=== PATIENT | female | born 1935 | race Caucasian/White ===

== ENCOUNTER → 2017-03-09 10:02 | Outpatient (CLI) | payer MEDICARE, OTHER, SELFPAY ==
[2017-03-09 13:16] LABS: Absolute Neutrophil Count 4.3 X10^3/uL (2.0-7.7); Basophil# 0.05 X10^3/uL; Basophil% 0.8 % (0-1); Eosinophil# 0.22 X10^3/uL; Eosinophils% 3.6 % (0-5); Hematocrit 38.9 % (37-47); Hemoglobin 13.1 g/dl (12.0-15.0); Lymphocyte % 13.2 % (19-41); Mean Corp Hgb Conc 33.7 g/gl (32-36); Mean Corpuscular Hgb 31.1 pg (27.0-32.0); Mean Corpuscular Volume 92.4 fL (81-99); Mean Platelet Vol. 10.8 fl (6.2-12.0); Monocyte# 0.75 X10^3/uL; Monocyte% 12.3 % (0-10); Neutrophil # 4.25 X10^3/uL (2.7-7.7); Neutrophil % 69.9 % (47-70); Platelet Count 246 K/mm3 (150-450); RBC Distribution Width CV 12.9 % (11.6-14.6); RBC Distribution Width SD 42.4 fl (35.1-43.9); Red Blood Count 4.21 M/mm3 (4.2-5.4); White Blood Count 6.1 K/mm3 (4.4-11.0)
[2017-03-09 13:17] LABS: POSITIVE COUNT NO; POSITIVE DIFFERENTIAL NO; POSITIVE MORPHOLOGY NO
[2017-03-09 13:44] LABS: AST(SGOT) 17 U/L (15-37); Alanine Aminotransfer ALT/SGPT 25 U/L (12-78); Albumin, Serum 3.7 g/dL (3.4-5.0); Alkaline Phosphatase 104 U/L (45-117); Anion Gap 8 (5-15); BUN 17 mg/dL (7-18); BUN/Creat Ratio 20.1 RATIO (10-20); Calcium,Total 9.1 mg/dL (8.5-10.1); Chloride 99 mmol/L (98-107); Creatinine, Serum 0.85 mg/dL (0.55-1.02); EST Glomerular Filtration Rate 68 mL/min (>60); Est Glom Filt Rate - Afr Amer 83 mL/min (>60); Globulin 3.7 g/dL (2.2-4.2); Glucose 88 mg/dL (70-110); Potassium 4.6 mmol/L (3.5-5.1); Protein, Total 7.4 g/dL (6.4-8.2); Sodium Level 136 mmol/L (136-145)
[2017-03-10 08:46] LABS: Vitamin D,25 Hydroxy 12.1 ng/mL
== END ==
PROVIDERS: Family Provider Family Medicine Geriatric Medicine; PCP Family Medicine Geriatric Medicine; Visit Provider Family Medicine Geriatric Medicine
DX: I10 Essential (primary) hypertension (principal); E55.9 Vitamin D deficiency, unspecified
CPT/HCPCS: 36415; 80053; 82306; 84443; 85025

== ENCOUNTER 2017-04-10 13:58 | Outpatient (RCR) | payer MEDICARE, OTHER, SELFPAY ==
[2017-03-16 12:47] LABS: International Normalized Ratio 2.7; Prothrombin Time (Protime)PT. 27.3 SECONDS (11.7-14.9)
[2017-04-10 15:12] LABS: International Normalized Ratio 2.6; Prothrombin Time (Protime)PT. 27.2 SECONDS (11.7-14.9)
== END 2017-04-10 14:00 | disposition home or self-care (01) ==
LOC: LAB 13:58
PROVIDERS: Family Provider Family Medicine Geriatric Medicine; PCP Family Medicine Geriatric Medicine; Visit Provider Internal Medicine Cardiovascular Disease
DX: I48.0 Paroxysmal 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 (principal)
CPT/HCPCS: 36415; 85610

== ENCOUNTER 2017-05-12 13:20 | Outpatient (RCR) | payer MEDICARE, OTHER, SELFPAY ==
[2017-05-12 15:02] LABS: International Normalized Ratio 2.3; Prothrombin Time (Protime)PT. 25.5 SECONDS (11.7-14.9)
== END 2017-05-12 14:00 | disposition home or self-care (01) ==
LOC: LAB 13:20
PROVIDERS: Family Provider Family Medicine Geriatric Medicine; PCP Family Medicine Geriatric Medicine; Visit Provider Internal Medicine Cardiovascular Disease
DX: I48.1 Persistent 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 (principal)
CPT/HCPCS: 36415; 85610

== ENCOUNTER 2017-06-12 12:14 | Outpatient (RCR) | payer MEDICARE, OTHER, SELFPAY ==
[2017-06-12 13:42] LABS: International Normalized Ratio 2.8; Prothrombin Time (Protime)PT. 29.3 SECONDS (11.7-14.9)
== END 2017-06-12 13:00 | disposition home or self-care (01) ==
LOC: LAB 12:14
PROVIDERS: Family Provider Family Medicine Geriatric Medicine; PCP Family Medicine Geriatric Medicine; Visit Provider Internal Medicine Cardiovascular Disease
DX: I48.1 Persistent 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 (principal)
CPT/HCPCS: 36415; 85610

== ENCOUNTER 2017-07-12 12:29 | Outpatient (RCR) | payer MEDICARE, OTHER, SELFPAY ==
[2017-07-12 13:13] LABS: International Normalized Ratio 2.7; Prothrombin Time (Protime)PT. 28.4 SECONDS (11.7-14.9)
== END 2017-07-12 13:00 | disposition home or self-care (01) ==
LOC: LAB 12:29
PROVIDERS: Family Provider Family Medicine Geriatric Medicine; PCP Family Medicine Geriatric Medicine; Visit Provider Internal Medicine Cardiovascular Disease
DX: I48.1 Persistent 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 (principal)
CPT/HCPCS: 36415; 85610

== ENCOUNTER → 2017-07-27 09:54 | Outpatient (CLI) | payer MEDICARE, OTHER, SELFPAY ==
--- NOTE | 2017-07-27 09:55 | ECHOD_ITS ---
Reason For Study: AFIB/FLUTTER Procedure This was a 2D Doppler, Color Flow transthoracic echocardiogram. The study was technically difficult. Due to body habitus. Exam performed in department. Left Ventricle Normal size and thickness. The estimated ejection fraction is 65 %. No regional wall motion abnormalities noted. Right Ventricle Normal size and thickness. Normal systolic function. Atria The left atrium is severely enlarged. Normal right atrium. Normal atrial septum. Mitral Valve The mitral valve is structurally normal. No prolapse or stenosis seen. Mild-Moderate (1-2+) mitral valve insufficiency. Tricuspid Valve Normal tricuspid valve. Mild (1+) tricuspid valve insufficiency. Right ventricular systolic pressure estimated to be 44 mmHg. Mild pulmonary hypertension. Aortic Valve Trisinus/trileaflet aortic valve. Pulmonic Valve Normal pulmonic valve. Trivial pulmonic valve insufficiency. Great Vessels Normal aortic root. Normal arch. The inferior vena cava is dilated. No collapse of the inferior vena cava. Pericardium/Pleural No pericardial effusion. MMode/2D Measurements & Calculations LVIDd: 4.6 cm IVSd: 1.1 cm Ao root diam: 3.4 cm LVIDs: 3.0 cm LVPWd: 1.1 cm LA dimension: 4.1 cm RVDd: 2.8 cm FS: 33.9 % LAV(MOD-bp): 95.3 ml LA A4 area: 29.5 cm2 RA A4 area: 20.0 cm2 LAV(MOD-bp) Indexed: 54.1 ml/m2 LAV(MOD-sp2): 74.1 ml LAV(MOD-sp4): 105.4 ml Doppler Measurements & Calculations MV E max tico: 132.3 cm/sec Lat Peak E' Tico: 9.3 cm/sec Med Peak E' Tico: 9.8 cm/sec MV A max tico: 32.4 cm/sec E/E' lat: 14.2 E/E' med: 13.5 MV E/A: 4.1 Ao V2 max: 142.5 cm/sec LV V1 max: 84.8 cm/sec MR max tico: 439.5 cm/sec Ao max P.1 mmHg LV V1 max P.9 mmHg MR max P.3 mmHg PA V2 max: 82.1 cm/sec PI dec slope: 132.4 cm/sec2 TR max tico: 245.5 cm/sec TR max P.4 mmHg Interpretation Summary The estimated ejection fraction is 65 %. The left atrium is severely enlarged. Mild-Moderate (1-2+) mitral valve insufficiency. Mild (1+) tricuspid valve insufficiency. Right ventricular systolic pressure estimated to be 44 mmHg. Mild pulmonary hypertension. Pt appears to be in 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. Compared to echo report dated 07/13/2015, no appreciable changes noted. Ordering Physician: Nadeem Sheriff Referring Physician: Deon Hamm Chi Performed By: Lorteo Walker RDCS, RVT
== END ==
PROVIDERS: Family Provider Family Medicine Geriatric Medicine; PCP Family Medicine Geriatric Medicine; Visit Provider Internal Medicine Cardiovascular Disease
DX: I51.7 Cardiomegaly (principal)
CPT/HCPCS: 93306

== ENCOUNTER 2017-08-08 10:58 | Outpatient (RCR) | payer MEDICARE, OTHER, SELFPAY ==
[2017-08-08 12:23] LABS: International Normalized Ratio 2.9; Prothrombin Time (Protime)PT. 30.6 SECONDS (11.7-14.9)
== END 2017-08-08 12:00 | disposition home or self-care (01) ==
LOC: LAB 10:58
PROVIDERS: Family Provider Family Medicine Geriatric Medicine; PCP Family Medicine Geriatric Medicine; Visit Provider Internal Medicine Cardiovascular Disease
DX: I48.1 Persistent 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 (principal)
CPT/HCPCS: 36415; 85610

== ENCOUNTER 2017-09-08 12:46 | Outpatient (RCR) | payer MEDICARE, OTHER, SELFPAY ==
[2017-09-08 14:00] LABS: International Normalized Ratio 2.4; Prothrombin Time (Protime)PT. 26.5 SECONDS (11.7-14.9)
== END 2017-09-08 14:00 | disposition home or self-care (01) ==
LOC: LAB 12:46
PROVIDERS: Family Provider Family Medicine Geriatric Medicine; PCP Family Medicine Geriatric Medicine; Visit Provider Internal Medicine Cardiovascular Disease
DX: I48.1 Persistent 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 (principal)
CPT/HCPCS: 36415; 85610

== ENCOUNTER → 2017-09-21 14:48 | Outpatient (CLI) | payer MEDICARE, OTHER, SELFPAY ==
[2017-09-21 17:42] LABS: Absolute Lymphocyte Count 0.82 X10^3/ul (0.83-4.51); Absolute Neutrophil Count 4.5 X10^3/uL (2.0-7.7); Basophil# 0.03 X10^3/uL; Basophil% 0.5 % (0-1); Eosinophil# 0.29 X10^3/uL; Eosinophils% 4.6 % (0-5); Hematocrit 36.8 % (37-47); Hemoglobin 12.1 g/dl (12.0-15.0); Lymphocyte # 0.82 X10^3/ul (4.0); Lymphocyte % 13.1 % (19-41); Mean Corp Hgb Conc 32.9 g/gl (32-36); Mean Corpuscular Volume 91.3 fL (81-99); Mean Platelet Vol. 10.8 fl (6.2-12.0); Monocyte# 0.59 X10^3/uL; Monocyte% 9.4 % (0-10); Neutrophil # 4.51 X10^3/uL (2.7-7.7); Neutrophil % 72.2 % (47-70); Platelet Count 251 K/mm3 (150-450); RBC Distribution Width CV 13.2 % (11.6-14.6); Red Blood Count 4.03 M/mm3 (4.2-5.4); White Blood Count 6.3 K/mm3 (4.4-11.0)
[2017-09-21 18:00] LABS: POSITIVE COUNT NO; POSITIVE DIFFERENTIAL NO; POSITIVE MORPHOLOGY NO
[2017-09-21 18:17] LABS: ALB/GLOB Ratio 1.1 RATIO (0.9-2.4); AST(SGOT) 22 U/L (15-37); Alanine Aminotransfer ALT/SGPT 27 U/L (13-56); Alkaline Phosphatase 82 U/L (45-117); Anion Gap 12 (5-15); BUN 17 mg/dL (7-18); BUN/Creat Ratio 18.8 RATIO (10-20); Calcium,Total 9.1 mg/dL (8.5-10.1); Chloride 99 mmol/L (98-107); EST Glomerular Filtration Rate 63 mL/min (>60); Est Glom Filt Rate - Afr Amer 77 mL/min (>60); Globulin 3.6 g/dL (2.2-4.2); Glucose 98 mg/dL (74-106); Potassium 4.4 mmol/L (3.5-5.1); Protein, Total 7.6 g/dL (6.4-8.2); Sodium Level 136 mmol/L (136-145); Thyroid Stim Hormone (TSH) 2.11 uIU/mL (0.358-3.74)
== END ==
PROVIDERS: Family Provider Family Medicine Geriatric Medicine; PCP Family Medicine Geriatric Medicine; Visit Provider Family Medicine Geriatric Medicine
DX: I10 Essential (primary) hypertension (principal); E55.9 Vitamin D deficiency, unspecified
CPT/HCPCS: 36415; 80053; 82306; 84443; 85025

== ENCOUNTER 2017-10-12 12:41 | Outpatient (RCR) | payer MEDICARE, OTHER, SELFPAY ==
[2017-10-12 13:52] LABS: International Normalized Ratio 2.5
== END 2017-10-12 14:00 | disposition home or self-care (01) ==
LOC: LAB 12:41
PROVIDERS: Family Provider Family Medicine Geriatric Medicine; PCP Family Medicine Geriatric Medicine; Visit Provider Internal Medicine Cardiovascular Disease
DX: I48.1 Persistent 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 (principal); Z79.01 Long term (current) use of anticoagulants; I36.1 Nonrheumatic tricuspid (valve) insufficiency; I27.21 Secondary pulmonary arterial hypertension; I25.2 Old myocardial infarction; I51.7 Cardiomegaly
CPT/HCPCS: 36415; 85610

== ENCOUNTER 2017-11-10 12:16 | Outpatient (RCR) | payer MEDICARE, OTHER, SELFPAY ==
[2017-11-10 12:56] LABS: International Normalized Ratio 2.5; Prothrombin Time (Protime)PT. 27.1 SECONDS (11.7-14.9)
== END 2017-11-10 13:00 | disposition home or self-care (01) ==
LOC: LAB 12:16
PROVIDERS: Nurse Practitioner Family; Family Provider Family Medicine Geriatric Medicine; PCP Family Medicine Geriatric Medicine; Visit Provider Internal Medicine Cardiovascular Disease
DX: I51.7 Cardiomegaly (principal); I48.0 Paroxysmal 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; Z79.01 Long term (current) use of anticoagulants; I36.1 Nonrheumatic tricuspid (valve) insufficiency; I27.21 Secondary pulmonary arterial hypertension; I25.2 Old myocardial infarction
CPT/HCPCS: 36415; 85610

== ENCOUNTER 2017-12-08 11:49 | Outpatient (RCR) | payer MEDICARE, OTHER, SELFPAY ==
[2017-12-08 12:37] LABS: International Normalized Ratio 3.3; Prothrombin Time (Protime)PT. 33.8 SECONDS (11.7-14.9)
== END 2017-12-08 13:00 | disposition home or self-care (01) ==
LOC: LAB 11:49
PROVIDERS: Family Provider Family Medicine Geriatric Medicine; PCP Family Medicine Geriatric Medicine; Referring Provider Internal Medicine Cardiovascular Disease; Visit Provider Internal Medicine Cardiovascular Disease
DX: I48.0 Paroxysmal 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 (principal); I51.7 Cardiomegaly; I36.1 Nonrheumatic tricuspid (valve) insufficiency; I27.21 Secondary pulmonary arterial hypertension; Z86.73 Personal history of transient ischemic attack (TIA), and cerebral infarction without residual deficits; Z79.01 Long term (current) use of anticoagulants
CPT/HCPCS: 36415; 85610

== ENCOUNTER 2018-01-01 12:28 | Outpatient (RCR) | payer MEDICARE, OTHER, SELFPAY ==
[2017-12-22 13:45] LABS: International Normalized Ratio 3.7; Prothrombin Time (Protime)PT. 36.7 SECONDS (11.7-14.9)
[2018-01-01 14:14] LABS: International Normalized Ratio 2.3
== END 2018-01-12 09:38 | disposition home or self-care (01) ==
LOC: LAB 12:28
PROVIDERS: Family Provider Family Medicine Geriatric Medicine; PCP Family Medicine Geriatric Medicine; Referring Provider Internal Medicine Cardiovascular Disease; Visit Provider Internal Medicine Cardiovascular Disease
DX: I51.7 Cardiomegaly (principal); I48.0 Paroxysmal 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; I36.1 Nonrheumatic tricuspid (valve) insufficiency; I27.21 Secondary pulmonary arterial hypertension; Z86.73 Personal history of transient ischemic attack (TIA), and cerebral infarction without residual deficits; Z79.01 Long term (current) use of anticoagulants
CPT/HCPCS: 36415; 85610

== ENCOUNTER 2018-02-02 12:22 | Outpatient (RCR) | payer MEDICARE, OTHER, SELFPAY ==
[2018-01-15 13:32] LABS: International Normalized Ratio 2.4; Prothrombin Time (Protime)PT. 26.2 SECONDS (11.7-14.9)
[2018-02-02 13:24] LABS: Prothrombin Time (Protime)PT. 37.6 SECONDS (11.7-14.9)
[2018-02-02 13:29] LABS: International Normalized Ratio 3.8
[2018-02-08 13:44] LABS: International Normalized Ratio 2.6; Prothrombin Time (Protime)PT. 27.9 SECONDS (11.7-14.9)
--- OUTSIDE RECORDS SUMMARY | 2018-03-10 19:11 | XMS RPT_ITS ---
:1935 Author Organization OHIP Support Name Relationship Address Phone MARCO A, DENISE Unavailable [address] + [place] [address] R Unavailable Unavailable Unavailable RIP STRICKLANDARD Unavailable [address] + [place] [address] R Unavailable Unavailable Unavailable MARCO A DENISE Unavailable [address] + [place] [address] R Unavailable Unavailable Unavailable MARCO A DENISE Unavailable [address] + [place] [address] R Unavailable Unavailable Unavailable MARCO A DENISE Unavailable [address] + [place] [address] R Unavailable Unavailable Unavailable MARCO A DENISE Unavailable [address] + [place] [address] R Unavailable Unavailable Unavailable MARCO A DENISE Unavailable [address] + [place] [address] R Unavailable Unavailable Unavailable MARCO A DENISE Unavailable [address] + [place] [address] R Unavailable Unavailable Unavailable MARCO A DENISE Unavailable [address] + [place] [address] R Unavailable Unavailable Unavailable MARCO A DENISE Unavailable [address] + [place] [address] R Unavailable Unavailable Unavailable MARCO A DENISE Unavailable [address] + [place] [address] R Unavailable Unavailable Unavailable MARCO A DENISE Unavailable [address] + [place] [address] R Unavailable Unavailable Unavailable MARCO A DENISE Unavailable [address] + [place] [address] R Unavailable Unavailable Unavailable MARCO A, DENISE Unavailable [address] + [place] [address] R Unavailable Unavailable Unavailable MARCO A, DENISE Unavailable [address] + [place] [address] MARCO A FRANCISCO Unavailable [address] + [place] [address] R Unavailable Unavailable Unavailable MARCO A DENISE Unavailable [address] + [place] [address] R Unavailable Unavailable Unavailable R Unavailable Unavailable Unavailable MARCO A, DENISE Unavailable [address] + [place] [address] MARCO A FRANCISCO Unavailable [address] + [place] [address] R Unavailable Unavailable Unavailable MARCO A, DENISE Unavailable [address] + [place] [address] FRANCISCO STRICKLAND Unavailable [address] + [place] [address] R Unavailable Unavailable Unavailable MARCO A DENISE Unavailable [address] + [place] [address] FRANCISCO STRICKLAND Unavailable [address] + [place] [address] R Unavailable Unavailable Unavailable Care Team Providers Name Role Phone Nadeem Arriaga Attending Unavailable Hansel, Deon Chi Primary Care Unavailable Nadeem Arriaga Attending Unavailable Hansel, Deon Chi Primary Care Unavailable WILLARD ARRIAGA Referring Unavailable Hansel, Deon Chi Attending Unavailable Hansel, Deon Chi Primary Care Unavailable Naheed Victor Attending Unavailable Nadeem Arriaga Attending Unavailable Hansel, Deon Chi Referring Unavailable Hansel, Deon Chi Primary Care Unavailable Nadeem Arriaga Attending Unavailable Nadeem Arriaga Referring Unavailable Hansel, Deon Chi Primary Care Unavailable Nadeem Arriaga Attending Unavailable WILLARD ARRIAGA Referring Unavailable Hansel, Deon Chi Primary Care Unavailable Nadeem Arriaga Attending Unavailable Hansel, Deon Chi Primary Care Unavailable Nadeem Arriaga Referring Unavailable Nadeem Arriaga Attending Unavailable Nadeem Arriaga Referring Unavailable Hansel, Deon Chi Primary Care Unavailable Nadeem Arriaga Attending Unavailable Hansel, Deon Chi Primary Care Unavailable Angella Stoner Attending Unavailable Hansel, Deon Chi Referring Unavailable Hansel, Deon Chi Primary Care Unavailable Nadeem Arriaga Attending Unavailable Arriaga, Nadeem Referring Unavailable Hansel, Deon Chi Primary Care Unavailable Nadeem Arriaga Attending Unavailable Arriaga, Nadeem Referring Unavailable ArriagaNadeem Attending Unavailable Arriaga, Nadeem Referring Unavailable Hansel, Deon Chi Primary Care Unavailable Hansel, Deon Chi Attending Unavailable Hansel, Deon Chi Primary Care Unavailable Nadeem Arriaga Attending Unavailable Arriaga, Nadeem Referring Unavailable Hansel, Deon Chi Primary Care Unavailable Nadeem Arriaga Attending Unavailable Arriaga, Nadeem Referring Unavailable Hansel, Deon Chi Primary Care Unavailable Arriaga, Nadeem Attending Unavailable Arriaga, Nadeem Referring Unavailable Hansel, Deon Chi Primary Care Unavailable Nadeem Arriaga Attending Unavailable Arriaga, Nadeem Referring Unavailable Hansel, Deon Chi Primary Care Unavailable PROBLEMS PROBLEMS DATE TYPE CONDITION / CODE ATTENDING STATUS SOURCE 01/15/2018 Unknown I51.7 - Cardiomegaly Nadeem Arriaga Active [facility] / I51.7(ICD-10) [facility] Hospital Repository 12/14/2017 Unknown I48.0 - Paroxysmal Steve Arriagael Active [place] 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 Community / I48.0(ICD-10) Hospital Repository 11/15/2017 Unknown I27.21 - Secondary Jaziel Nadeem Active [place] pulmonary arterial [facility] hypertension / Hospital I27.21(ICD-10) Repository 11/15/2017 Unknown I36.1 - Nonrheumatic Nadeem Arriaga Active [place] tricuspid (valve) [facility] insufficiency / Hospital I36.1(ICD-10) Repository 11/15/2017 Unknown I63.9 - Cerebral Jaziel Nadeem Active [place] infarction, [facility] unspecified / Hospital I63.9(ICD-10) Repository 11/15/2017 Unknown Z79.01 - nursing home Nadeem Arriaga Active [facility] (current) use of [facility] anticoagulants / Hospital Z79.01(ICD-10) Repository 10/17/2017 Unknown I48.1 - Persistent Arriaga Nadeem Active [facility] 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 Community / I48.1(ICD-10) Hospital Repository 07/13/2017 Unknown I48.91 - Unspecified Nadeem Arriaga Active [facility] 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 Community / I48.91(ICD-10) Hospital Repository 03/09/2017 Unknown I10 - Essential Hansel, Deon Chi Active [place] (primary) Community hypertension / Hospital I10(ICD-10) Repository PROCEDURES PROCEDURES No Procedure Records FoundRESULTS RESULTS PROTHROMBIN TIME W/INR Collected: 01/15/2018 Status: F Source: [place] 12:47 PM [facility] REPOSITORY TYPE CODE TESTS RESULT OUT OF RANGE REFERENCE UNITS LAB L300.4150 11.7-14.9 SECONDS High PROTIME 26.2 LAB L300.4200 Normal INR 2.4 Performed By: #### L300.3900 #### [facility] [address] [place], [address] PROTHROMBIN TIME W/INR Collected: 01/01/2018 Status: F Source: [place] 12:32 PM [facility] REPOSITORY TYPE CODE TESTS RESULT OUT OF RANGE REFERENCE UNITS LAB L300.4150 11.7-14.9 SECONDS High PROTIME 25.0 LAB L300.4200 Normal INR 2.3 Performed By: #### L300.3900 #### [facility] [address] [place], [address] PROTHROMBIN TIME W/INR Collected: 12/22/2017 Status: F Source: [place] 12:39 PM [facility] REPOSITORY Order Comment: CRITICAL VALUE VERIFIED. CALLED TO daisy cox 12/22/17 Angelica Harris. RESULTS READ BACK BY same . TYPE CODE TESTS RESULT OUT OF REFERENCE UNITS RANGE LAB L300.4150 11.7-14.9 SECONDS High PROTIME 36.7 LAB L300.4200 High alert INR 3.7 Performed By: #### L300.3900 #### [facility] [address] [place], [address] PROTHROMBIN TIME W/INR Collected: 12/08/2017 Status: F Source: [place] 11:53 AM [facility] REPOSITORY TYPE CODE TESTS RESULT OUT OF RANGE REFERENCE UNITS LAB L300.4150 11.7-14.9 SECONDS High PROTIME 33.8 LAB L300.4200 Normal INR 3.3 Performed By: #### L300.3900 #### [facility] [address] [place], [address] PROTHROMBIN TIME W/INR Collected: 11/10/2017 Status: F Source: [place] 12:18 PM [facility] REPOSITORY Order Comment: Comments: STANDING ORDER Comments: STANDING ORDER TYPE CODE TESTS RESULT OUT OF RANGE REFERENCE UNITS LAB L300.4150 11.7-14.9 SECONDS High PROTIME 27.1 LAB L300.4200 Normal INR 2.5 Performed By: #### L300.3900 #### [facility] [address] [place], [place], [address] PROTHROMBIN TIME W/INR Collected: 10/12/2017 Status: F Source: [place] 12:54 PM [facility] REPOSITORY TYPE CODE TESTS RESULT OUT OF RANGE REFERENCE UNITS LAB L300.4150 11.7-14.9 SECONDS High PROTIME 27.0 LAB L300.4200 Normal INR 2.5 Performed By: #### L300.3900 #### [facility] [address] [place], [address] CBC W/DIFF, AUTOMATED Collected: 09/21/2017 Status: F Source: [place] 2:49 PM [facility] REPOSITORY TYPE CODE TESTS RESULT OUT OF RANGE REFERENCE UNITS LAB L100.1000 4.4-11.0 K/mm3 Normal WBC 6.3 LAB L100.1200 4.2-5.4 M/mm3 Low RBC 4.03 LAB L100.1300 12.0-15.0 g/dl Normal HGB 12.1 LAB L100.1400 37-47 % Low HCT 36.8 LAB L100.1500 81-99 fL Normal MCV 91.3 LAB L100.1600 27.0-32.0 pg Normal MCH 30.0 LAB L100.1700 32-36 g/gl Normal MCHC 32.9 LAB L100.1810 11.6-14.6 % Normal RDW CV 13.2 LAB L100.1820 35.1-43.9 fl High RDW SD 44.0 LAB L100.1900 150-450 K/mm3 Normal PLT 251 LAB L100.2000 6.2-12.0 fl Normal MPV 10.8 LAB L100.2100 47-70 % High NEUT% 72.2 LAB L100.2200 19-41 % Low LY% 13.1 LAB L100.2300 0-10 % Normal MONO% 9.4 LAB L100.2400 0-5 % Normal EO% 4.6 LAB L100.2500 0-1 % Normal BASO% 0.5 LAB L100.2550 0.0-0.9 % Normal IM GRAN % 0.200 Result Comment: IG% - Immature Granulocytes (promyelocytes, myelocytes and metamyelocytes) > 1% indicates that a LEFT SHIFT is Present. LAB L100.2620 2.0-7.7 X10 3/uL Normal Absolute Neut 4.5 LAB L100.2720 0.83-4.51 X10 3/ul Low Absolute Lymph 0.82 Performed By: #### L100.0100 #### [facility] [address] [place], [place], [address] COMPREHENSIVE METABOLIC Collected: 09/21/2017 Status: F Source: [facility] 2:49 PM [facility] REPOSITORY TYPE CODE TESTS RESULT OUT OF RANGE REFERENCE UNITS LAB L501.0100 74-106 mg/dL Normal GLU 98 Result Comment: Please note revised GLUCOSE reference range effective 2017. LAB L501.1000 7-18 mg/dL Normal BUN 17 LAB L501.1100 0.55-1.02 mg/dL Normal CREAT,SERUM 0.90 Result Comment: The validity of the calculated GFR AND GFRAA in patients over 70 years has not been determined. Clinical correlation is essential. LAB L501.1110 >60 mL/min Normal EST GFR 63 Result Comment: Non- GFR Calc LAB L501.1115 >60 mL/min Normal EST GFR - AA 77 Result Comment: GFR Calc LAB L501.1300 10-20 RATIO Normal BUN/CRE 18.8 LAB L501.1500 6.4-8.2 g/dL T Normal PROT 7.6 LAB L501.1800 3.2-5.0 g/dL Normal ALB 4.0 LAB L501.1950 2.2-4.2 g/dL Normal GLOB 3.6 LAB L501.2000 0.9-2.4 RATIO Normal A/G 1.1 LAB L501.2200 8.5-10.1 mg/dL CA Normal 9.1 LAB L501.4100 15-37 U/L Normal AST 22 LAB L501.4305 45-117 U/L Normal ALK P 82 LAB L501.4405 13-56 U/L Normal ALT 27 LAB L501.4600 0.20-1.00 mg/dL T Normal BILI 0.70 LAB L501.5300 136-145 mmol/L NA Normal 136 LAB L501.5600 3.5-5.1 mmol/L K Normal 4.4 LAB L501.5900 98-107 mmol/L CL Normal 99 LAB L501.6100 21.0-32.0 mmol/L Normal CO2 25.0 LAB L501.6200 5-15 Normal GAP 12 Performed By: #### L500.4050, L501.9520 #### [facility] [address] [place], [address] THYROID STIM HORMONE Collected: 09/21/2017 Status: F Source: [place] ([facility]SH) 2:49 PM [facility] REPOSITORY TYPE CODE TESTS RESULT OUT OF RANGE REFERENCE UNITS LAB L501.9520 0.358-3.74 uIU/mL Normal TSH 2.11 Performed By: #### L500.4050, L501.9520 #### [facility] [address] [place], [address] VITAMIN D,25 HYDROXY Collected: 09/21/2017 Status: F Source: [place] 2:49 PM [facility] REPOSITORY TYPE CODE TESTS RESULT OUT OF RANGE REFERENCE UNITS LAB L506.1000 29.95-100.01 ng/mL Normal Vitamin D 33.0 25-OH Result Comment: Vitamin D 25(OH) Status Range Deficiency <20 ng/mL (50nmol/L) Insuffciency 20 - 30 ng/mL (50 - 75 nmol/L) Sufficiency 30 - 100 ng/mL (75 - 250 nmol/L) Toxicity >100 ng/mL (>250 nmol/L) Performed By: #### L506.1000 #### [facility] [address] [place], [place], [address] PROTHROMBIN TIME W/INR Collected: 09/08/2017 Status: F Source: [place] 12:53 PM [facility] REPOSITORY TYPE CODE TESTS RESULT OUT OF RANGE REFERENCE UNITS LAB L300.4150 11.7-14.9 SECONDS High PROTIME 26.5 LAB L300.4200 Normal INR 2.4 Performed By: #### L300.3900 #### [facility] [address] [place], [address] CARDIOLOGY VISIT Observed: 08/08/2017 Status: F Source: [place] REPORT 1:17 PM [facility] REPOSITORY [facility] [address] [place] [address] OFFICE VISIT Date of Service: 08/08/17 MR#: [id number] Acct: [id number] Name: CRISTOBAL STRICKLAND Rep #: [id number] : 1935 Provider: Angella Stoner Age/Sex: 82/F Location: [facility] Status: Signed HPI HPI Details: CRISTOBAL STRICKLAND, is a 82 F who presents to the office today for a cardiovascular follow-up. She has a history of paroxysmal 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, hypertension, pulmonary hypertension, hyperlipidemia and small acute cerebral infarcts. From a cardiac standpoint, patient is doing well. She does not have any chest discomfort/heaviness/tightness. She does not have any worsening symptoms of shortness of breath. She does not have any orthopnea. She denies PND. She does not have any symptoms of congestive heart failure. She does not have any palpitations that she is aware of. She does not have any lightheadedness or dizziness. She does not have any near-syncope or syncope. She does have lower extremity edema, she does use compression stockings. She does not have any symptoms of claudication. Intake Vital Signs08/08/17 Height 5 ft 2 in 08/08/17 Weight: 173 lb 08/08/17 Body Mass Index (BMI) 31.6 08/08/17 Blood Pressure 122/60 08/08/17 Blood Pressure Location Lt brachial Intake Visit Reasons: 4 M FU [employer]s Rece[employer] Processor Required: No Is patient in pain?: No Allergies No Known Allergies Allergy (Verified 08/08/17 10:24) Medications Simvastatin 20 mg PO QHS 03/15/13 [History Confirmed 08/08/17] Aspirin [Aspirin, Baby] 81 mg PO DAILY@0800 #30 tab.chew 07/13/15 [Rx Confirmed 08/08/17] Hydrochlorothiazide [Hctz] 12.5 mg PO DAILY #30 tab 07/13/15 [Rx Confirmed 08/08/17] Lisinopril [Zestril] 40 mg PO DAILY #30 tab 07/13/15 [Rx Confirmed 08/08/17] Multivitamins,Therapeutic [Multivitamin] 1 tab PO DAILY 09/16/15 [History Confirmed 08/08/17] magnesium oxide 400 mg capsule 400 mg PO QDAY cap 04/08/17 [History Confirmed 08/08/17] metoprolol tartrate 50 mg tablet 75 mg PO BID tab 04/08/17 [History Confirmed 08/08/17] warfarin 5 mg tablet 5 mg PO QDAY 04/08/17 [History Confirmed 08/08/17] isosorbide mononitrate ER 30 mg tablet,extended release 24 hr 30 mg PO DAILY #90 tab 04/10/17 [Rx Confirmed 08/08/17] melatonin 3 mg disintegrating tablet 6 mg PO HS PRN tab 04/10/17 [History Confirmed 08/08/17] warfarin 2 mg tablet 2 mg PO .COMPLEX #120 tab 07/12/17 [Rx Confirmed 08/08/17] amlodipine 2.5 mg tablet 2.5 mg PO BID #180 tab 08/08/17 [Rx Confirmed 08/08/17] Ejection fraction %: 65 to 70 PFSH Medical History Atrial enlargement, bilateral (Chronic) Non-rheumatic tricuspid valve insufficiency (Chronic) Secondary pulmonary arterial hypertension (Chronic) CVA (cerebral vascular accident) (Chronic 07/12/15) Hypertension (Chronic) Paroxysmal 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 (Chronic) nursing home current use of anticoagulant (Chronic) Hyponatremia (Chronic) Surgical History History of bilateral hip replacements (Chronic) History of cardioversion (Chronic 09/17/15) History of tonsillectomy (Chronic) Family History Brother CAD (coronary artery disease) CABG in his 60's Social History Smoking Status: Never smoker alcohol intake: never caffeine: Yes Type: coffee Number of servings: 2 ROS Const Const: Negative for fatigue, weakness, difficulty sleeping, frequent falls, headache(s) or excessive sweating Eyes Eyes: Negative for loss of peripheral vision, transient loss of vision, blurry vision or double vision ENT ENT: Negative for headache(s) or balance problems Cardio Chest Pain: No Edema: None, Bilateral (BLE ankle edema right > left) Muscle aches with walking: None Resp Respiratory: Negative for SOB with activity, SOB at rest, SOB orthopnea\SOB lying down or paroxysmal nocturnal dyspnea GI GI: Negative nausea or heartburn : Negative for hematuria Musc Musc: Negative for muscle aches/ myalgia, muscle weakness, joint pain or balance problems Skin Skin: Negative non-healing lesions, unusual bruising or rash Neuro Neuro: Negative for weakness, frequent falls, headache(s), blurry vision or double vision B[place]on Hematologic/Lymphatic: Negative for easy bruising Endo Endo: Negative for fatigue or excessive sweating Psych Psych: Negative for anxiety or depression Allergy Allergy/Immunology: Negative for rash Cardiology Exam Const Appearance: cooperative, healthy appearing and no acute distress Nutritional Appearance: well nourished Orientation: alert, oriented x3 and oriented to person Head Head: normal to inspection, atraumatic and normocephalic Nose: external nose normal Face and Sinus: face symmetric Mouth: oral mucosae normal Eyes General: appearance normal, both eyes and all related structures Eyelids: eyelids normal Conjunctivae: conjunctivae normal Pupils: PERRL and normal by confrontation EOM: EOM intact bilaterally Neck Neck: normal visual inspection and full ROM Carotids: normal carotid upstroke Chest Chest inspection: normal inspection of the chest Auscultation: Bilateral: Clear to Auscultation Cardio Palpation: normal PMI Rate: regular rate Rhythm: regular rhythm Heart sounds: S1 normal and S2 normal GI GI: normal to inspection, no hepatosplenomegaly and bowel sounds present Neuro General: alert, oriented x3, awake, CN's II-XI intact bilaterally and moves all extremities Skin Skin: no rashes or lesions noted Extremities Pulses: Normal: Right Femoral Pulse, Left Femoral Pulse, Right Dorsalis Pedis Pulse, Left Dorsalis Pedis Pulse, Right Posterior Tibial Pulse, Left Posterior Tibial Pulse, Right Radial Pulse, Left Radial Pulse Lower Extremity Edema: None: Bilateral Psych Psychological: normal affect Supplemental Info Echocardiogram in 2018 demonstrates an ejection fraction of 65%. Left atrium is severely enlarged. Mild to moderate mitral insufficiency. Mild tricuspid insufficiency. RVSP 44 mmHg. Mild pulmonary hypertension. Assessment AND Plan 1. Paroxysmal 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 I48.0 Plan Patient is in 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 today. Suspect that this may be now more persistent. She is not symptomatic. Her rate is controlled. She is anticoagulated with a therapeutic INR goal of 2-3. 2. Essential hypertension I10 Plan Adequately controlled on current medications. Will not make any adjustments. 3. Secondary pulmonary arterial hypertension I27.21 Plan We will continue to monitor through periodic echocardiograms. Plan Detail Other Medications Refilled: Follow Up 6 Months (DJN) Coding Level of Care Code Off vis,est,level 3 Diagnoses Paroxysmal 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 I48.0 Essential hypertension I10 Hypertension type: essential hypertension Secondary pulmonary arterial hypertension I27.21 Coding Level of Care Code Off vis,est,level 3 Diagnoses Paroxysmal 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 I48.0 Essential hypertension I10 Hypertension type: essential hypertension Secondary pulmonary arterial hypertension I27.21 08/08/17 1317 <Electronically signed by Angella FRIED> Date Angella FRIED Cosigner Signature: Date (if applicable) CC: Deon Hamm MD PROTHROMBIN TIME W/INR Collected: 08/08/2017 Status: F Source: [place] 11:14 AM [facility] REPOSITORY TYPE CODE TESTS RESULT OUT OF RANGE REFERENCE UNITS LAB L300.4150 11.7-14.9 SECONDS High PROTIME 30.6 LAB L300.4200 Normal INR 2.9 Performed By: #### L300.3900 #### [facility] [address] [place], [address] ECHOCARDIOGRAM COMPLETE Observed: 07/31/2017 Status: F Source: [place] 3:32 PM [facility] REPOSITORY [facility] Cardiovascular Services [address] [place] [address] Echo Complete 07/27/17 0956 MR#: [id number] Acct: [id number] Name: CRISTOBAL STRICKLAND Rep #: [id number] : 1935 82 From: Nadeem [place]riaga MD Attending Dr: Nadeem Arriaga MD Status: REG CLI Ordering Dr: Nadeem Arriaga MD Date: 07/27/17 Location: [facility] Sex: F C Admitted: Reason For Study: AFIB/FLUTTER Procedure This was a 2D Doppler, Color Flow transthoracic echocardiogram. The study was technically difficult. Due to body habitus. Exam performed in department. Left Ventricle Normal size and thickness. The estimated ejection fraction is 65 %. No regional wall motion abnormalities noted. Right Ventricle Normal size and thickness. Normal systolic function. Atria The left atrium is severely enlarged. Normal right atrium. Normal atrial septum. Mitral Valve The mitral valve is structurally normal. No prolapse or stenosis seen. Mild-Moderate (1-2+) mitral valve insufficiency. Tricuspid Valve Normal tricuspid valve. Mild (1+) tricuspid valve insufficiency. Right ventricular systolic pressure estimated to be 44 mmHg. Mild pulmonary hypertension. Aortic Valve Trisinus/trileaflet aortic valve. Pulmonic Valve Normal pulmonic valve. Trivial pulmonic valve insufficiency. Great Vessels Normal aortic root. Normal arch. The inferior vena cava is dilated. No collapse of the inferior vena cava. Pericardium/Pleural No pericardial effusion. MMode/2D Measurements AND Calculations LVIDd: 4.6 cm IVSd: 1.1 cm Ao root diam: 3.4 cm LVIDs: 3.0 cm LVPWd: 1.1 cm LA dimension: 4.1 cm RVDd: 2.8 cm FS: 33.9 % LAV(MOD-bp): 95.3 ml LA A4 area: 29.5 cm2 RA A4 area: 20.0 cm2 LAV(MOD-bp) Indexed: 54.1 ml/m2 LAV(MOD-sp2): 74.1 ml LAV(MOD-sp4): 105.4 ml Doppler Measurements AND Calculations MV E max tico: 132.3 cm/sec Lat Peak E' Tico: 9.3 cm/sec Med Peak E' Tico: 9.8 cm/sec MV A max tico: 32.4 cm/sec E/E' lat: 14.2 E/E' med: 13.5 MV E/A: 4.1 Ao V2 max: 142.5 cm/sec LV V1 max: 84.8 cm/sec MR max tico: 439.5 cm/sec Ao max P.1 mmHg LV V1 max P.9 mmHg MR max P.3 mmHg PA V2 max: 82.1 cm/sec PI dec slope: 132.4 cm/sec2 TR max tico: 245.5 cm/sec TR max P.4 mmHg Interpretation Summary The estimated ejection fraction is 65 %. The left atrium is severely enlarged. Mild-Moderate (1-2+) mitral valve insufficiency. Mild (1+) tricuspid valve insufficiency. Right ventricular systolic pressure estimated to be 44 mmHg. Mild pulmonary hypertension. Pt appears to be in 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. Compared to echo report dated 07/13/2015, no appreciable changes noted. Ordering Physician: Nadeem Arriaga Referring Physician: Deon Hamm Chi Performed By: Loreot Walker, LIBIA, RVT 07/31/17918 Date Nadeem Arriaga MD CC: Nadeem Arriaga MD; Deon Hamm MD Date Dictated: 07/27/17955 Date Transcribed: 07/31/17918 Salary Manager: Signed PROTHROMBIN TIME W/INR Collected: 07/12/2017 Status: F Source: [place] 12:37 PM [facility] REPOSITORY TYPE CODE TESTS RESULT OUT OF RANGE REFERENCE UNITS LAB L300.4150 11.7-14.9 SECONDS High PROTIME 28.4 LAB L300.4200 Normal INR 2.7 Performed By: #### L300.3900 #### [facility] [address] [place], [place], [address] PROTHROMBIN TIME W/INR Collected: 06/12/2017 Status: F Source: [place] 12:25 PM [facility] REPOSITORY TYPE CODE TESTS RESULT OUT OF RANGE REFERENCE UNITS LAB L300.4150 11.7-14.9 SECONDS High PROTIME 29.3 LAB L300.4200 Normal INR 2.8 Performed By: #### L300.3900 #### [facility] [address] [place], [place], [address] PROTHROMBIN TIME W/INR Collected: 05/12/2017 Status: F Source: [place] 1:30 PM [facility] REPOSITORY TYPE CODE TESTS RESULT OUT OF RANGE REFERENCE UNITS LAB L300.4150 11.7-14.9 SECONDS High PROTIME 25.5 LAB L300.4200 Normal INR 2.3 Performed By: #### L300.3900 #### [facility] [address] [place], [place], [address] PROTHROMBIN TIME W/INR Collected: 04/10/2017 Status: F Source: [place] 2:05 PM [facility] REPOSITORY TYPE CODE TESTS RESULT OUT OF RANGE REFERENCE UNITS LAB L300.4150 11.7-14.9 SECONDS High PROTIME 27.2 LAB L300.4200 Normal INR 2.6 Performed By: #### L300.3900 #### [facility] [address] [place], [address] CARDIOLOGY VISIT Observed: 04/10/2017 Status: F Source: JAMIES[facility] REPORT 1:44 PM [facility] REPOSITORY [facility] [address] [place] [address] OFFICE VISIT Date of Service: 04/10/17 MR#: [id number] Acct: [id number] Name: CRISTOBAL STRICKLAND Rep #: [id number] : 1935 Provider: Nadeem Arriaga MD Age/Sex: 81/F Location: [facility] Status: Signed HPI HPI Chief Complaint: routine f/u Details: Referring physician: Dr. Mcgregor Mrs. Morel is a very pleasant 81-year-old nondiabetic nonsmoking female with a history of hypertension,no previous cardiac history, who presented to [facility] on 07/11/15. At that time she developed lightheadedness and dizziness as well as numbness of her left arm. She was found to be in new onset 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 and severe hypertension. Initial CT of her head was negative for acute stroke. It was felt that her symptoms were due to severe hypertension. She underwent an MRI which showed small acute infarcts in the basal ganglia. She did not receive TPA. She underwent a 2-D echo with Doppler which demonstrated severe left atrial enlargement, negative bubble study, EF of 65%, RVSP of 40 mmHg. She was treated with Coumadin, beta guerrero, lisinopril and HCTZ for hypertension. From a cardiac standpoint she cannot detect when she in 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 and denies any chest pain, angina, shortness of breath or dyspnea on exertion. she underwent successful DC cardioversion on 09/17/15 and is remained in sinus rhythm ever since. She does walk with a cane over long distances but is had no presyncope or syncopal episodes. She has been compliant with her medications. Her last known EKG documenting normal sinus rhythm was 03/08/15 at which time she had normal sinus rhythm, normal axis,first-degree AV block, no evidence of previous microinfarction or acute changes. Patient now returns for follow-up of her 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 and hypertension. She underwent a 2-D echo with Doppler and 07/13/15 which demonstrated an EF of 65%, as well as a stress test which was negative for inducible ischemia. The patient states that she's been exercising well as best she can, and has no symptoms of lightheadedness or dizziness. She denies any palpitations. Blood pressure is well controlled at home, and she can detect when she goes in and out of 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. She has had no 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 events according to as best she can tell. In our office today her blood pressure is140/60, and pulse is 66 and regular. Her physical exam is as below. Her cardiac exam is regular rate and rhythm, normal S1/S2, no murmurs are detected. She has no edema. Her lipids as of 07/12/15 showed HDL of 64 and an LDL of 51. Repeat lipids pending. EKG today demonstrates normal sinus rhythm with first-degree AV block, QT corrected of 402 ms. No previous myocardial infarction noted. Intake Vital Signs04/10/17 Height 5 ft 2 in Intake Visit Reasons: 6 M FU Allergies No Known Allergies Allergy (Verified 04/10/17 13:15) Medications Simvastatin 20 mg PO QHS 03/15/13 [History Confirmed 04/08/17] Aspirin [Aspirin, Baby] 81 mg PO DAILY@0800 #30 tab.chew 07/13/15 [Rx Confirmed 04/08/17] Hydrochlorothiazide [Hctz] 12.5 mg PO DAILY #30 tab 07/13/15 [Rx Confirmed 04/08/17] Lisinopril [Zestril] 40 mg PO DAILY #30 tab 07/13/15 [Rx Confirmed 04/08/17] Multivitamins,Therapeutic [Multivitamin] 1 tab PO DAILY 09/16/15 [History Confirmed 04/08/17] warfarin 2 mg tablet 2 mg PO .COMPLEX #30 tab 03/16/17 [Rx Confirmed 04/08/17] magnesium oxide 400 mg capsule 400 mg PO QDAY cap 04/08/17 [History Confirmed 04/08/17] metoprolol tartrate 50 mg tablet 75 mg PO BID tab 04/08/17 [History Confirmed 04/08/17] warfarin 5 mg tablet 5 mg PO QDAY 04/08/17 [History Confirmed 04/08/17] amlodipine 2.5 mg tablet 2.5 mg PO BID #180 tab 04/10/17 [Rx Confirmed 04/10/17] isosorbide mononitrate ER 30 mg tablet,extended release 24 hr 30 mg PO DAILY #90 tab 04/10/17 [Rx Confirmed 04/10/17] melatonin 3 mg disintegrating tablet 6 mg PO HS PRN tab 04/10/17 [History Confirmed 04/10/17] PFSH Medical History Atrial enlargement, bilateral (Chronic) Non-rheumatic tricuspid valve insufficiency (Chronic) Secondary pulmonary arterial hypertension (Chronic) CVA (cerebral vascular accident) (Chronic 07/12/15) Hypertension (Chronic) Paroxysmal 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 (Chronic) 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) Hyponatremia (Chronic) Surgical History History of bilateral hip replacements (Chronic) History of cardioversion (Chronic 09/17/15) History of tonsillectomy (Chronic) Family History Brother CAD (coronary artery disease) CABG in his 60's Social History Smoking Status: Never smoker ROS Const Const: Negative for fatigue, weakness, difficulty sleeping, frequent falls, headache(s) or excessive sweating Eyes Eyes: Negative for loss of peripheral vision, transient loss of vision, blurry vision or double vision ENT ENT: Negative for headache(s), dizziness, Nosebleed/epistaxis or balance problems Cardio Chest Pain: No Edema: None, Bilateral (BLE ankle edema right > left) Muscle aches with walking: None Resp Respiratory: Negative for SOB with activity, SOB at rest, SOB orthopnea\SOB lying down or paroxysmal nocturnal dyspnea GI GI: Negative nausea or heartburn : Negative for hematuria Musc Musc: Negative for muscle aches/ myalgia, muscle weakness, joint pain or balance problems Skin Skin: Negative non-healing lesions, unusual bruising or rash Neuro Neuro: Negative for weakness, frequent falls, blurry vision, headache(s), dizziness, lightheadedness, orthostatic symptoms or double vision Brendon Hematologic/Lymphatic: Negative for easy bruising Endo Endo: Negative for fatigue, excessive sweating or increased thirst/drinking Psych Psych: Negative for anxiety or depression Allergy Allergy/Immunology: Negative for hives, Negative for rash Cardiology Exam Const Appearance: cooperative, healthy appearing and no acute distress Nutritional Appearance: well nourished Orientation: alert, oriented x3 and oriented to person Head Head: normal to inspection, atraumatic and normocephalic Nose: external nose normal Face and Sinus: face symmetric Mouth: oral mucosae normal Eyes General: appearance normal, both eyes and all related structures Eyelids: eyelids normal Conjunctivae: conjunctivae normal Pupils: PERRL and normal by confrontation EOM: EOM intact bilaterally Neck Neck: normal visual inspection and full ROM Carotids: normal carotid upstroke Chest Chest inspection: normal inspection of the chest Auscultation: Bilateral: Clear to Auscultation Cardio Palpation: normal PMI Rate: regular rate Rhythm: regular rhythm Heart sounds: S1 normal and S2 normal GI GI: normal to inspection, no hepatosplenomegaly and bowel sounds present Neuro General: alert, oriented x3, awake, CN's II-XI intact bilaterally and moves all extremities Skin Skin: no rashes or lesions noted Extremities Pulses: Normal: Right Femoral Pulse, Left Femoral Pulse, Right Dorsalis Pedis Pulse, Left Dorsalis Pedis Pulse, Right Posterior Tibial Pulse, Left Posterior Tibial Pulse, Right Radial Pulse, Left Radial Pulse Lower Extremity Edema: None: Bilateral Psych Psychological: normal affect Assessment AND Plan 1. Paroxysmal 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 I48.0 Plan 1. Atrial fibrillation: Patient has had no further 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 as best she can tell, and is tolerating her antihypertensive medicines well. Recommend that she continue her Imdur, amlodipine, lisinopril and warfarin. She has had no falls or accidents that would prohibit her from continuing Coumadin. 2. Secondary pulmonary arterial hypertension I27.21 Plan 2. Pulmonary hypertension: Recommend the patient undergo repeat echocardiogram in July 2017 do so every 2 years for LV function and pulmonary pressure maintenance. 3. Hyperlipidemia: Her LDL and HDL cholesterol are fairly well-controlled. Continue Zocor. 3. Return office in 4 months. This note was generated using a voice recognition system and there may be incorrect words, spelling or punctuation that were not noted when reviewing the office note prior to saving. Plan Detail Other Orders Orders: Other Medications New: Follow Up 4 Months (Jaziel) Coding Level of Care Code Off vis,est,level 3 Diagnoses Paroxysmal 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 I48.0 Secondary pulmonary arterial hypertension I27.21 Coding Level of Care Code Off vis,est,level 3 Diagnoses Paroxysmal 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 I48.0 Secondary pulmonary arterial hypertension I27.21 04/10/17 1344 <Electronically signed by Nadeem Arriaga MD> Date Nadeem Arriaga MD Cosigner Signature: Date (if applicable) CC: PROTHROMBIN TIME W/INR Collected: 03/16/2017 Status: F Source: [facility] 11:59 AM [facility] REPOSITORY TYPE CODE TESTS RESULT OUT OF RANGE REFERENCE UNITS LAB L300.4150 11.7-14.9 SECONDS High PROTIME 27.3 LAB L300.4200 Normal INR 2.7 Performed By: #### L300.3900 #### [facility] [address] [place], [address] CBC W/DIFF, AUTOMATED Collected: 03/09/2017 Status: F Source: J[place] 10:07 AM [facility] REPOSITORY TYPE CODE TESTS RESULT OUT OF RANGE REFERENCE UNITS LAB L100.1000 4.4-11.0 K/mm3 Normal WBC 6.1 LAB L100.1200 4.2-5.4 M/mm3 Normal RBC 4.21 LAB L100.1300 12.0-15.0 g/dl Normal HGB 13.1 LAB L100.1400 37-47 % Normal HCT 38.9 LAB L100.1500 81-99 fL Normal MCV 92.4 LAB L100.1600 27.0-32.0 pg Normal MCH 31.1 LAB L100.1700 32-36 g/gl Normal MCHC 33.7 LAB L100.1810 11.6-14.6 % Normal RDW CV 12.9 LAB L100.1820 35.1-43.9 fl Normal RDW SD 42.4 LAB L100.1900 150-450 K/mm3 Normal PLT 246 LAB L100.2000 6.2-12.0 fl Normal MPV 10.8 LAB L100.2100 47-70 % Normal NEUT% 69.9 LAB L100.2200 19-41 % Low LY% 13.2 LAB L100.2300 0-10 % High MONO% 12.3 LAB L100.2400 0-5 % Normal EO% 3.6 LAB L100.2500 0-1 % Normal BASO% 0.8 LAB L100.2550 0.0-0.9 % Normal IM GRAN % 0.200 Result Comment: IG% - Immature Granulocytes (promyelocytes, myelocytes and metamyelocytes) > 1% indicates that a LEFT SHIFT is Present. LAB L100.2620 2.0-7.7 X10 3/uL Normal Absolute Neut 4.3 LAB L100.2720 0.83-4.51 X10 3/ul Low Absolute Lymph 0.80 Performed By: #### L100.0100 #### [facility] [address] [place], [address] COMPREHENSIVE METABOLIC Collected: 03/09/2017 Status: F Source: [facility] 10:07 AM [facility] REPOSIT[facility] TYPE CODE TESTS RESULT OUT OF RANGE REFERENCE UNITS LAB L501.0100 70-110 mg/dL Normal GLU 88 LAB L501.1000 7-18 mg/dL Normal BUN 17 LAB L501.1100 0.55-1.02 mg/dL Normal 0.85 CREAT,SERUM Result Comment: The validity of the calculated GFR AND GFRAA in patients over 70 years has not been determined. Clinical correlation is essential. LAB L501.1110 >60 mL/min Normal EST GFR 68 Result Comment: Non- GFR Calc LAB L501.1115 >60 mL/min Normal EST GFR - AA 83 Result Comment: GFR Calc LAB L501.1300 10-20 RATIO High BUN/CRE 20.1 LAB L501.1500 6.4-8.2 g/dL T Normal PROT 7.4 LAB L501.1800 3.4-5.0 g/dL Normal ALB 3.7 Result Comment: Please note revised Albumin AND Globulin reference range effective 2016. LAB L501.1950 2.2-4.2 g/dL Normal GLOB 3.7 LAB L501.2000 0.9-2.4 RATIO Normal A/G 1.0 LAB L501.2200 8.5-10.1 mg/dL Normal CA 9.1 LAB L501.4100 15-37 U/L Normal AST 17 LAB L501.4305 45-117 U/L Normal ALK P 104 LAB L501.4405 12-78 U/L Normal ALT 25 LAB L501.4600 0.20-1.00 mg/dL Normal T BILI 0.60 LAB L501.5300 136-145 mmol/L Normal NA 136 LAB L501.5600 3.5-5.1 mmol/L Normal K 4.6 LAB L501.5900 98-107 mmol/L Normal CL 99 LAB L501.6100 21.0-32.0 mmol/L Normal CO2 29.0 LAB L501.6200 5-15 Normal GAP 8 Performed By: #### L500.4050, L501.9520 #### [facility] [address] [facility]. [place], [place], [address] THYROID STIM HORMONE Collected: 03/09/2017 Status: F Source: H[facility]RI (TSH) 10:07 AM [facility] REPOSITORY TYPE CODE TESTS RESULT OUT OF RANGE REFERENCE UNITS LAB L501.9520 0.358-3.74 uIU/mL Normal TSH 2.70 Performed By: #### L500.4050, L501.9520 #### [facility] [address] [place], [address] VITAMIN D,25 HYDROXY Collected: 03/09/2017 Status: F Source: [facility] 10:07 AM [facility] REPOSITORY TYPE CODE TESTS RESULT OUT OF RANGE REFERENCE UNITS LAB L506.1000 ng/mL Normal Vitamin D 12.1 25-OH Result Comment: Vitamin D 25(OH) Status Range Deficiency <20 ng/mL (50nmol/L) Insuffciency 20 - 30 ng/mL (50 - 75 nmol/L) Sufficiency 30 - 100 ng/mL (75 - 250 nmol/L) Toxicity >100 ng/mL (>250 nmol/L) Performed By: #### L506.1000 #### [facility] [address] [facility] [place], [address] PROTHROMBIN TIME W/INR Collected: 02/09/2017 Status: F Source: HENRI 12:48 PM [facility] REPOSITORY TYPE CODE TESTS RESULT OUT OF RANGE REFERENCE UNITS LAB L300.4150 11.7-14.9 SECONDS High PROTIME 26.4 LAB L300.4200 Normal INR 2.5 Performed By: #### L300.3900 #### [facility] [address], [address] ALLERGIES ALLERGIES DATE TYPE / CODE NAME / CODE REACTION SEVERITY SOURCE 08/08/2017 Drug No Known Unknown [facility] Allergy/4160 Allergies/F00 Hospital 03002(SNOMED 9046844(RXNOR Repository CT) M) ENCOUNTERS ENCOUNTERS ADMIT/DISCHARGE ACCOUNT ADMITTING ENCOUNTER LOCATION SOURCE NUMBER CLASS 01/15/2018 [id number] Ambulatory [place] 4 [facility] ing:LAB Repository 01/01/2018/ [id number] Ambulatory [place] 8 6 [facility] ing:LAB Repository 12/08/2017/ [id number] Ambulatory [place] 8 3 [facility] ing:LAB Repository 11/10/2017/ [id number] Ambulatory [place] 8 8 [facility] ing:LAB Repository 10/12/2017/ [id number] Ambulatory [place] 8 6 [facility] ing:LAB Repository 09/21/2017 [id number] Ambulatory [place] 1 [facility] ing:POLAB3 Repository 09/08/2017/ [id number] Ambulatory [place] 8 1 [facility] ing:LAB Repository 08/08/2017/ [id number] Ambulatory [place] 8 1 [facility] ing:LAB Repository 08/08/2017/ [id number] Ambulatory [facility]:B [place] 8 8 [place] Repository 07/27/2017 [id number] Ambulatory [place] 7 [facility] ing:[facility] Repository 07/27/2017 [id number] Ambulatory BMSBuilding:W [place] 8 [facility] Repository 07/12/2017/ [id number] Ambulatory [place] 8 6 [facility] ing:LAB Repository 06/12/2017/ [id number] Ambulatory [place] 8 5 [facility] ing:LAB Repository 05/12/2017/ [id number] Ambulatory [place] 8 0 [facility] ing:LAB Repository 04/10/2017/ [id number] Ambulatory [place] 8 1 [facility] ing:LAB Repository 04/10/2017/ [id number] Ambulatory BMSBuilding:B [place] 8 9 [facility] Repository 04/08/2017 [id number] Ambulatory BMSBuilding:B [place] 4 [facility] Repository 03/09/2017 [id number] Ambulatory [place] 9 [facility] ing:POLAB3 Repository 02/09/2017/ [id number] Ambulatory [place] 7 0 [facility] ing:LAB Repository PAYERS PAYERS ENCOUNTER GUARANTOR PAYER SUBSCRIBER SOURCE 01/15/2018 DENISE Garcia Primary CRISTOBAL J [place] [id number] [facility] PART A [facility] [id number] Number: Repository [id number]: (188) [id number] [phone] () Date:1999-07-15 01/15/2018 Secondary CRISTOBAL J [place] Insurance:[facility]: [facility] INSURANCE [facility] [id number] Hospital Number: Repository [id number] Date:1999-07-[address] [place] [address]JB: 01/15/2018 Tertiary NOT ARELIUNK [place] Insurance:SELF PAY [facility] Number: Effective Repository Date:2018-01-15 01/01/2018 DENISE Garcia Primary CRISTOBAL J [place] [id number] Insurance:[facility]ARE [facility]: [facility] PART A [facility] [id number] Number: Repository [address]Ksm: 330 [id number] [phone] (HP) Date:1999-07-15 01/01/2018 Secondary CRISTOBAL Álvarez Insurance:[facility]: Community INSURANCE COPolicy [id number] Hospital Number: Repository [id number] Date:1999-07-15P [address] [place] [address]GQ: 01/01/2018 Tertiary NOT GIVENUNK [place] Insurance:SELF PAY [facility] Number: Effective Repository Date:2017-12-14 12/08/2017 DENISE Garcia Primary CRISTOBAL Álvarez [id number] Insurance:[facility]ICARE [facility] [place]AB[facility] PART A [facility] [id number] Number: Repository [address]Ntn: 330 [id number] [phone] (HP) Date:1999-07-15 12/08/2017 Secondary CRISTOBAL Álvarez Insurance:[facility]: Community INSURANCE COP[employer]icy [id number] Hospital Number: Repository [id number] Date:1999-07-15 [address], [place] [address]SF: 12/08/2017 Tertiary NOT GIVENUNK [place] Insurance:SELF PAY [facility] Number: Effective Repository Date:2017-11-15 11/10/2017 DENISE Garcia Primary CRISTOBAL Álvarez [id number] Insurance[facility] FABIAN PART A [facility] [id number] Number: Repository [address]Qyx: 330 [id number] [phone] (HP) Date:1999-07-15 11/10/2017 Secondary CRISTOBAL Álvarez Insurance:[facility]: Community INSURANCE COP[employer]icy [id number] Hospital Number: Repository [id number] Date:1999-07-15P [address] [place] [address]JH: 11/10/2017 Tertiary NOT GIVENUNK [place] Insurance:SELF PAY [facility] Number: Effective Repository Date:2017-10-17 10/12/2017 DENISE Garcia Primary CRISTOBAL Álvarez [id number] Insurance:MEDICARE [facility]OLZDOB: Community FABIAN PART A olic [id number] Number: Repository [address]Ghz: 330 [id number] [phone] (HP) Date:1999-07-15 10/12/2017 Secondary CRISTOBAL Garcia [place] Insurance:[facility]: Community [facility] [id number] Hospital Number: Repository [id number] Date:1999-07-15P [address], [place] [address]DZ: 10/12/2017 Tertiary NOT GIVENUNK [place] Insurance:SELF PAY [facility] Number: Effective Repository Date:2017-09-14 09/21/2017 DENISE Garcia Primary CRISTOBAL Álvarez [id number] Insurance:MEDICARE BUCHHOLZDOB: Community FABIAN PART A [facility] [id number] Number: Repository [address]Xnt: 330 [id number] [phone] () Date:2017-09-21 09/21/2017 Secondary CRISTOBAL Garcia [place] Insurance:[facility]: Community [facility] [id number] Hospital Number: Repository [id number] Date:2017-09-21[address], [place] [address]BX: 09/21/2017 Tertiary NOT GIVENUNK [place] Insurance:SELF PAY [facility] Number: Effective Repository Date:2017-09-21 09/08/2017 DENISE Garcia Primary CRISTOBAL Álvarez [id number] Insurance:MEDICARE BUCHHOLZDOB: Community FABIAN PART A [facility] [id number] Number: Repository [address]Dzi: 330 [id number] [phone] (HP) Date:1999-07-15 09/08/2017 Secondary CRISTOBAL Álvarez Insurance:[facility]: Community [facility] [id number] Hospital Number: Repository [id number] Date:1999-07-15P [address] [address]EA: 09/08/2017 Tertiary NOT GIVENUNK [place] Insurance:SELF PAY [facility] Number: Effective Repository Date:2017-08-11 08/08/2017 DENISE Garcia Primary CRISTOBAL Álvarez [id number] Insurance:[facility]: [facility] PART A [facility] [id number] Number: Repository [address]Ivi: 330 [id number] [phone] (HP) Date:1999-07-15 08/08/2017 Secondary CRISTOBAL Álvarez Insurance:[facility]: Community INSURANCE [facility] [id number] Hospital Number: Repository [id number] Date:1999-07-15P [address] [place] [address]TK: 08/08/2017 Tertiary NOT GIVENUNK [place] Insurance:SELF PAY [facility] Number: Effective Repository Date:2017-07-13 08/08/2017 EDNISE Garcia Primary CRISTOBAL Álvarez [id number] Insurance:[facility]: [facility] PART A [facility] [id number] Number: Repository [address]Eha: 330 [id number] [phone] (HP) Date:2017-04-10 08/08/2017 Secondary CRISTOBAL Álvarez Insurance:[facility]: Community INSURANCE [facility] [id number] Hospital Number: Repository [id number] Date:2017-04-10P [address] [place] [address]QR: 08/08/2017 Tertiary NOT GIVENUNK [place] Insurance:SELF PAY [facility] Number: Effective Repository Date:2017-08-08 07/27/2017 DENISE Garcia Primary CRISTOBAL Álvarez [id number] Insurance:MEDICARE BUCHHOLZDOB: Community FABIAN PART A olic [id number] Number: Repository [address]Jct: 330 [id number] [phone] (HP) Date:2017-04-10 07/27/2017 Secondary CRISTOBAL Garcia [place] Insurance:[facility]: Community INSURANCE COP[employer]icy [id number] Hospital Number: Repository [id number] Date:2017-04-10[address], [place] [address]VD: 07/27/2017 Tertiary NOT GIVENUNK [place] Insurance:SELF PAY [facility] Number: Effective Repository Date:2017-04-10 07/27/2017 DENISE Garcia Primary CRISTOBAL Álvarez [id number] Insurance:[facility]ARE [facility] Community FABIAN PART A [facility] [id number] Number: Repository [id number]: 330 [id number] [phone] (HP) Date:2017-04-10 07/27/2017 Secondary CRISTOBAL Garcia [place] Insurance:[facility]: Community INSURANCE COP[employer]icy [id number] Hospital Number: Repository [id number] Date:2017-04-10[address], [place] [address]SU: 07/27/2017 Tertiary NOT GIVENUNK [place] Insurance:SELF PAY [facility] Number: Effective Repository Date:2017-07-27 07/12/2017 DENISE Garcia Primary CRISTOBAL Álvarez [id number] Insurance:MEDICARE [facility]: Community FABIAN PART A [facility] [id number] Number: Repository [id number]: 330 [id number] [phone] (HP) Date:1999-07-15 07/12/2017 Secondary CRISTOBAL Garcia [place] Insurance:[facility]: Community INSURANCE COPolicy [id number] Hospital Number: Repository [id number] Date:1999-07-15P [address] [place] [address]HA: 07/12/2017 Tertiary NOT GIVENUNK [place] Insurance:SELF PAY [facility] Number: Effective Repository Date:2017-06-13 06/12/2017 DENISE Garcia Primary CRISTOBAL Álvarez [id number] Insurance:MEDICARE [facility] Community [place] PART A [facility] [id number] Number: Repository [id number]: 330 [id number] [phone] (HP) Date:1999-07-15 06/12/2017 Secondary CRISTOBAL Garcia [place] Insurance:[facility]: Community [id number] Number: Repository [id number] Date:1999-07-[address], [place] [address]HA: 06/12/2017 Tertiary NOT GIVENUNK [place] Insurance:SELF PAY [facility] Effective Repository Date:2017-05-15 05/12/2017 DENISE Garcia Primary CRISTOBAL Álvarez [id number] Insurance[facility] FABIAN PART A [facility] [id number] Number: Repository [id number]: 330 [id number] [phone] (HP) Date:2017-05-12 05/12/2017 Secondary CRISTOBAL Garcia [place] Insurance:[facility]: Community [facility] [id number] Hospital Number: Repository [id number] Date:2017-05-12[address] [address]FI: 05/12/2017 Tertiary NOT GIVENUNK [place] Insurance:SELF PAY [facility] Number: Effective Repository Date:2017-05-12 04/10/2017 Denise Garcia Primary CRISTOBAL Álvarez [id number] Insurance:[facility] Fabian PART A [facility] [id number] Number: Repository [id number]: 330 [id number] [phone] (HP) Date:1999-07-15 04/10/2017 Secondary CRISTOBAL Garcia [place] Insurance:[facility]: Community [facility] [id number] Hospital Number: Repository [id number] Date:1999-07-15[address], [place] [address]VQ: 04/10/2017 Tertiary NOT GIVENUNK [place] Insurance:SELF PAY [facility] Number: Effective Repository Date:2017-02-13 04/10/2017 Denise Garcia Primary CRISTOBAL Álvarez [id number] Insurance:[facility] Fabian PART A [facility] [id number] Number: Repository [id number]: 330 [id number] [phone] (HP) Date:2017-01-19 04/10/2017 Secondary CRISTOBAL J [place] Insurance:[facility]: Community [facility] [id number] Hospital Number: Repository [id number] Date:2017-01-19[address] [place] [address]DM: 04/10/2017 Tertiary NOT GIVENUNK [place] Insurance:SELF PAY [facility] Number: Effective Repository Date:2017-01-19 04/08/2017 Denise Garcia Primary CRISTOBAL Álvarez [id number] Insurance:[facility] Community Fabian PART A [facility] [id number] Number: Repository [id number]: 330 [id number] [phone] (HP) Date:2017-04-08 04/08/2017 Secondary CRISTOBAL J [place] Insurance:[facility]: Community INSURANCE COPolicy [id number] Hospital Number: Repository [id number] Date:2017-04-08[address], [place] [address]AB: 04/08/2017 Tertiary NOT GIVENUNK [place] Insurance:SELF PAY [facility] Effective Repository Date:2017-04-08 03/09/2017 Denise Garcia Primary CRISTOBAL Álvarez [id number] Insurance:[facility] Community Fabian PART A [facility] [id number] Number: Repository [id number]: 330 [id number] [phone] () Date:2017-03-09 03/09/2017 Secondary CRISTOBAL Garcia [place] Insurance:[facility]: Community INSURANCE COPolicy [id number] Hospital Number: Repository [id number] Date:2017-03-09[address], [place] [address]FF: 03/09/2017 Tertiary NOT GIVENUNK [place] Insurance:SELF PAY [facility] Number: Effective Repository Date:2017-03-09 02/09/2017 Denise Garcia Primary CRISTOBAL Álvarez [id number] Insurance:[facility] Community Fabian PART A [facility] [id number] Number: Repository [id number]: 330 [id number] [phone] () Date:1999-07-15 02/09/2017 Secondary CRISTOBAL Garcia [place] Insurance:[facility]: Community INSURANCE COPolicy [id number] Hospital Number: Repository [id number] Date:1999-07-15[address], [place] [address]WK: 02/09/2017 Tertiary NOT GIVENUNK [place] Insurance:SELF PAY [facility] Number: Effective Repository Date:2017-01-15
== END 2018-02-02 13:00 | disposition home or self-care (01) ==
LOC: LAB 12:22
PROVIDERS: Family Provider Family Medicine Geriatric Medicine; PCP Family Medicine Geriatric Medicine; Referring Provider Internal Medicine Cardiovascular Disease; Visit Provider Internal Medicine Cardiovascular Disease
DX: I51.7 Cardiomegaly (principal); I48.0 Paroxysmal 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; I36.1 Nonrheumatic tricuspid (valve) insufficiency; I27.21 Secondary pulmonary arterial hypertension; Z86.73 Personal history of transient ischemic attack (TIA), and cerebral infarction without residual deficits; Z79.01 Long term (current) use of anticoagulants
CPT/HCPCS: 36415; 85610

== ENCOUNTER 2018-03-08 13:44 | Outpatient (RCR) | payer MEDICARE, OTHER, SELFPAY ==
[2018-02-23 13:12] LABS: International Normalized Ratio 1.7; Prothrombin Time (Protime)PT. 19.7 SECONDS (11.7-14.9)
[2018-03-08 15:07] LABS: International Normalized Ratio 2.2; Prothrombin Time (Protime)PT. 24.2 SECONDS (11.7-14.9)
== END 2018-03-08 14:00 | disposition home or self-care (01) ==
LOC: LAB 13:44
PROVIDERS: Family Provider Family Medicine Geriatric Medicine; PCP Family Medicine Geriatric Medicine; Referring Provider Internal Medicine Cardiovascular Disease; Visit Provider Internal Medicine Cardiovascular Disease
DX: I51.7 Cardiomegaly (principal); I48.0 Paroxysmal 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; I36.1 Nonrheumatic tricuspid (valve) insufficiency; I27.21 Secondary pulmonary arterial hypertension; Z86.73 Personal history of transient ischemic attack (TIA), and cerebral infarction without residual deficits; Z79.01 Long term (current) use of anticoagulants
CPT/HCPCS: 36415; 85610

== ENCOUNTER → 2018-03-12 09:49 | Outpatient (CLI) | payer MEDICARE, OTHER, SELFPAY ==
[2018-03-08 13:03] VITALS: BMI 30.5
[2018-03-12 11:00] LABS: AST(SGOT) 22 U/L (15-37); Alanine Aminotransfer ALT/SGPT 22 U/L (13-56); Alkaline Phosphatase 114 U/L (45-117); Bilirubin, Direct 0.17 mg/dL (0.00-0.30); Cholesterol 189 mg/dL (200); High Density Lipoprotein 66 mg/dL; Triglycerides 127 mg/dL; Very Low Density Lipoprotein 25 mg/dL (5-40)
== END ==
PROVIDERS: Family Provider Family Medicine Geriatric Medicine; PCP Family Medicine Geriatric Medicine; Referring Provider Internal Medicine Cardiovascular Disease; Visit Provider Internal Medicine Cardiovascular Disease
DX: E78.5 Hyperlipidemia, unspecified (principal); I63.9 Cerebral infarction, unspecified
CPT/HCPCS: 36415; 80061; 80076

== ENCOUNTER → 2018-03-29 15:55 | Outpatient (CLI) | payer MEDICARE, OTHER, SELFPAY ==
[2018-03-08 13:03] VITALS: BMI 30.5
[2018-03-29 17:00] LABS: Absolute Lymphocyte Count 1.05 X10^3/ul (0.83-4.51); Absolute Neutrophil Count 5.1 X10^3/uL (2.0-7.7); Basophil# 0.02 X10^3/uL; Basophil% 0.3 % (0-1); Eosinophil# 0.31 X10^3/uL; Eosinophils% 4.3 % (0-5); Hematocrit 41.5 % (37-47); Hemoglobin 13.2 g/dl (12.0-15.0); Lymphocyte # 1.05 X10^3/ul (4.0); Lymphocyte % 14.7 % (19-41); Mean Corp Hgb Conc 31.8 g/gl (32-36); Mean Corpuscular Hgb 29.4 pg (27.0-32.0); Mean Corpuscular Volume 92.4 fL (81-99); Mean Platelet Vol. 10.6 fl (6.2-12.0); Monocyte# 0.65 X10^3/uL; Monocyte% 9.1 % (0-10); Neutrophil # 5.09 X10^3/uL (2.7-7.7); Neutrophil % 71.5 % (47-70); Platelet Count 260 K/mm3 (150-450); RBC Distribution Width CV 13.4 % (11.6-14.6); RBC Distribution Width SD 44.6 fl (35.1-43.9); Red Blood Count 4.49 M/mm3 (4.2-5.4); White Blood Count 7.1 K/mm3 (4.4-11.0)
[2018-03-29 17:01] LABS: POSITIVE COUNT NO; POSITIVE DIFFERENTIAL NO; POSITIVE MORPHOLOGY NO
[2018-03-29 17:15] LABS: AST(SGOT) 20 U/L (15-37); Alanine Aminotransfer ALT/SGPT 24 U/L (13-56); Albumin, Serum 3.9 g/dL (3.2-5.0); Alkaline Phosphatase 115 U/L (45-117); Anion Gap 8 (5-15); BUN 15 mg/dL (7-18); Calcium,Total 9.3 mg/dL (8.5-10.1); Chloride 103 mmol/L (98-107); Creatinine, Serum 0.88 mg/dL (0.55-1.02); EST Glomerular Filtration Rate 65 mL/min (>60); Est Glom Filt Rate - Afr Amer 78 mL/min (>60); Globulin 3.8 g/dL (2.2-4.2); Glucose 106 mg/dL (74-106); Potassium 4.1 mmol/L (3.5-5.1); Protein, Total 7.7 g/dL (6.4-8.2); Sodium Level 138 mmol/L (136-145); Thyroid Stim Hormone (TSH) 3.35 uIU/mL (0.358-3.74)
[2018-03-29 17:17] LABS: Vitamin D,25 Hydroxy 27.4 ng/mL (29.95-100.01)
== END ==
PROVIDERS: Family Provider Family Medicine Geriatric Medicine; PCP Family Medicine Geriatric Medicine; Visit Provider Family Medicine Geriatric Medicine
DX: I11.9 Hypertensive heart disease without heart failure (principal); E55.9 Vitamin D deficiency, unspecified; I48.0 Paroxysmal 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; I36.1 Nonrheumatic tricuspid (valve) insufficiency; I27.21 Secondary pulmonary arterial hypertension; Z86.73 Personal history of transient ischemic attack (TIA), and cerebral infarction without residual deficits; Z79.01 Long term (current) use of anticoagulants
CPT/HCPCS: 36415; 80053; 82306; 84443; 85025; 85610

== ENCOUNTER 2018-04-12 12:36 | Outpatient (RCR) | payer MEDICARE, OTHER, SELFPAY ==
[2018-03-08 13:03] VITALS: BMI 30.5
[2018-03-29 17:22] LABS: Prothrombin Time (Protime)PT. 22.8 SECONDS (11.7-14.9)
[2018-04-12 13:44] LABS: Prothrombin Time (Protime)PT. 31.1 SECONDS (11.7-14.9)
== END 2018-04-12 13:46 | disposition home or self-care (01) ==
LOC: LAB 12:36
PROVIDERS: Family Provider Family Medicine Geriatric Medicine; PCP Family Medicine Geriatric Medicine; Referring Provider Internal Medicine Cardiovascular Disease; Visit Provider Internal Medicine Cardiovascular Disease
DX: I51.7 Cardiomegaly (principal); I48.0 Paroxysmal 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; I36.1 Nonrheumatic tricuspid (valve) insufficiency; I27.21 Secondary pulmonary arterial hypertension; Z86.73 Personal history of transient ischemic attack (TIA), and cerebral infarction without residual deficits; Z79.01 Long term (current) use of anticoagulants
CPT/HCPCS: 36415; 85610

== ENCOUNTER 2018-04-26 12:55 | Outpatient (RCR) | payer MEDICARE, OTHER, SELFPAY ==
[2018-03-08 13:03] VITALS: BMI 30.5
[2018-04-26 14:06] LABS: International Normalized Ratio 2.7; Prothrombin Time (Protime)PT. 29.1 SECONDS (11.7-14.9)
== END 2018-04-26 13:55 | disposition home or self-care (01) ==
LOC: LAB 12:55
PROVIDERS: Family Provider Family Medicine Geriatric Medicine; PCP Family Medicine Geriatric Medicine; Referring Provider Internal Medicine Cardiovascular Disease; Visit Provider Internal Medicine Cardiovascular Disease
DX: I51.7 Cardiomegaly (principal); I48.0 Paroxysmal 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; I36.1 Nonrheumatic tricuspid (valve) insufficiency; I27.21 Secondary pulmonary arterial hypertension; Z86.73 Personal history of transient ischemic attack (TIA), and cerebral infarction without residual deficits; Z79.01 Long term (current) use of anticoagulants
CPT/HCPCS: 36415; 85610

== ENCOUNTER 2018-06-06 12:07 | Outpatient (RCR) | payer MEDICARE, OTHER, SELFPAY ==
[2018-03-08 13:03] VITALS: BMI 30.5
[2018-05-23 13:59] LABS: International Normalized Ratio 3.8
[2018-06-06 13:51] LABS: International Normalized Ratio 2.5
== END 2018-06-12 16:00 | disposition home or self-care (01) ==
LOC: LAB 12:07
PROVIDERS: Family Provider Family Medicine Geriatric Medicine; PCP Family Medicine Geriatric Medicine; Referring Provider Internal Medicine Cardiovascular Disease; Visit Provider Internal Medicine Cardiovascular Disease
DX: I51.7 Cardiomegaly (principal); I48.0 Paroxysmal 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; I36.1 Nonrheumatic tricuspid (valve) insufficiency; I27.21 Secondary pulmonary arterial hypertension; Z86.73 Personal history of transient ischemic attack (TIA), and cerebral infarction without residual deficits; Z79.01 Long term (current) use of anticoagulants
CPT/HCPCS: 36415; 85610

== ENCOUNTER 2018-06-28 11:51 | Outpatient (RCR) | payer MEDICARE, OTHER, SELFPAY ==
[2018-03-08 13:03] VITALS: BMI 30.5
[2018-06-28 12:28] LABS: International Normalized Ratio 2.3; Prothrombin Time (Protime)PT. 24.9 SECONDS (11.7-14.9)
== END 2018-06-28 13:00 | disposition home or self-care (01) ==
LOC: LAB 11:51
PROVIDERS: Family Provider Family Medicine Geriatric Medicine; PCP Family Medicine Geriatric Medicine; Referring Provider Internal Medicine Cardiovascular Disease; Visit Provider Internal Medicine Cardiovascular Disease
DX: I51.7 Cardiomegaly (principal); I48.0 Paroxysmal 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; I36.1 Nonrheumatic tricuspid (valve) insufficiency; I27.21 Secondary pulmonary arterial hypertension; Z86.73 Personal history of transient ischemic attack (TIA), and cerebral infarction without residual deficits; Z79.01 Long term (current) use of anticoagulants
CPT/HCPCS: 36415; 85610

== ENCOUNTER 2018-07-26 12:20 | Outpatient (RCR) | payer MEDICARE, OTHER, SELFPAY ==
[2018-03-08 13:03] VITALS: BMI 30.5
[2018-07-26 13:38] LABS: International Normalized Ratio 2.1; Prothrombin Time (Protime)PT. 23.8 SECONDS (11.7-14.9)
== END 2018-07-26 13:00 | disposition home or self-care (01) ==
LOC: LAB 12:20
PROVIDERS: Family Provider Family Medicine Geriatric Medicine; PCP Family Medicine Geriatric Medicine; Referring Provider Internal Medicine Cardiovascular Disease; Visit Provider Internal Medicine Cardiovascular Disease
DX: I51.7 Cardiomegaly (principal); I48.0 Paroxysmal 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; I36.1 Nonrheumatic tricuspid (valve) insufficiency; I27.21 Secondary pulmonary arterial hypertension; Z86.73 Personal history of transient ischemic attack (TIA), and cerebral infarction without residual deficits; Z79.01 Long term (current) use of anticoagulants
CPT/HCPCS: 36415; 85610

== ENCOUNTER 2018-08-23 12:04 | Outpatient (RCR) | payer MEDICARE, OTHER, SELFPAY ==
[2018-03-08 13:03] VITALS: BMI 30.5
[2018-08-23 12:57] LABS: International Normalized Ratio 2.1; Prothrombin Time (Protime)PT. 23.9 SECONDS (11.7-14.9)
== END 2018-09-12 17:48 | disposition home or self-care (01) ==
LOC: LAB 12:04
PROVIDERS: Family Provider Family Medicine Geriatric Medicine; PCP Family Medicine Geriatric Medicine; Referring Provider Internal Medicine Cardiovascular Disease; Visit Provider Internal Medicine Cardiovascular Disease
DX: I48.0 Paroxysmal 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 (principal); I51.7 Cardiomegaly; I36.1 Nonrheumatic tricuspid (valve) insufficiency; I27.21 Secondary pulmonary arterial hypertension; Z79.01 Long term (current) use of anticoagulants; Z86.73 Personal history of transient ischemic attack (TIA), and cerebral infarction without residual deficits
CPT/HCPCS: 36415; 85610

== ENCOUNTER 2018-09-20 10:19 | Outpatient (RCR) | payer MEDICARE, OTHER, SELFPAY ==
[2018-03-08 13:03] VITALS: BMI 30.5
[2018-09-20 10:57] LABS: International Normalized Ratio 2.1; Prothrombin Time (Protime)PT. 23.9 SECONDS (11.7-14.9)
== END 2018-09-20 11:00 | disposition home or self-care (01) ==
LOC: LAB 10:19
PROVIDERS: Family Provider Family Medicine Geriatric Medicine; PCP Family Medicine Geriatric Medicine; Referring Provider Internal Medicine Cardiovascular Disease; Visit Provider Internal Medicine Cardiovascular Disease
DX: I48.0 Paroxysmal 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 (principal); I51.7 Cardiomegaly; I36.1 Nonrheumatic tricuspid (valve) insufficiency; I27.21 Secondary pulmonary arterial hypertension; Z79.01 Long term (current) use of anticoagulants; Z86.73 Personal history of transient ischemic attack (TIA), and cerebral infarction without residual deficits
CPT/HCPCS: 36415; 85610

== ENCOUNTER → 2018-09-27 08:46 | Outpatient (CLI) | payer MEDICARE, OTHER, SELFPAY ==
[2018-03-08 13:03] VITALS: BMI 30.5
[2018-09-27 12:52] LABS: Absolute Lymphocyte Count 0.78 X10^3/uL (0.83-4.51); Absolute Neutrophil Count 4.9 X10^3/uL (2.0-7.7); Basophil# 0.04 X10^3/uL; Basophil% 0.6 % (0-1); Eosinophil# 0.24 X10^3/uL; Eosinophils% 3.7 % (0-5); Hematocrit 41.9 % (37-47); Hemoglobin 13.6 g/dL (12.0-15.0); Lymphocyte # 0.78 X10^3/ul (4.0); Lymphocyte % 11.9 % (19-41); Mean Corp Hgb Conc 32.5 g/dL (32-36); Mean Corpuscular Hgb 30.3 pg (27.0-32.0); Mean Corpuscular Volume 93.3 fL (81-99); Mean Platelet Vol. 11.1 fl (6.2-12.0); Monocyte# 0.62 X10^3/uL; Monocyte% 9.4 % (0-10); NRBC Flagged by Analyzer 0 % (0-5); Neutrophil # 4.87 X10^3/uL (2.7-7.7); Neutrophil % 74.1 % (47-70); Platelet Count 235 K/mm3 (150-450); RBC Distribution Width SD 44.6 fl (35.1-43.9); Red Blood Count 4.49 M/mm3 (4.2-5.4); White Blood Count 6.6 K/mm3 (4.4-11.0)
[2018-09-27 13:11] LABS: Vitamin D,25 Hydroxy 19.4 ng/mL (29.95-100.01)
[2018-09-27 13:27] LABS: AST(SGOT) 18 U/L (15-37); Alanine Aminotransfer ALT/SGPT 22 U/L (13-56); Albumin, Serum 3.9 g/dL (3.2-5.0); Alkaline Phosphatase 119 U/L (45-117); Anion Gap 6 (5-15); BUN 17 mg/dL (7-18); BUN/Creat Ratio 16.7 RATIO (10-20); Calcium,Total 9.2 mg/dL (8.5-10.1); Chloride 107 mmol/L (98-107); Creatinine, Serum 1.02 mg/dL (0.55-1.02); EST Glomerular Filtration Rate 55 mL/min (>60); Est Glom Filt Rate - Afr Amer 66 mL/min (>60); Globulin 3.9 g/dL (2.2-4.2); Glucose 94 mg/dL (74-106); Potassium 4.2 mmol/L (3.5-5.1); Protein, Total 7.8 g/dL (6.4-8.2); Sodium Level 140 mmol/L (136-145)
== END ==
PROVIDERS: Family Provider Family Medicine Geriatric Medicine; PCP Family Medicine Geriatric Medicine; Visit Provider Family Medicine Geriatric Medicine
DX: E55.9 Vitamin D deficiency, unspecified (principal); I10 Essential (primary) hypertension
CPT/HCPCS: 36415; 80053; 82306; 84443; 85025

== ENCOUNTER → 2018-10-25 08:47 | Outpatient (CLI) | payer MEDICARE, OTHER, SELFPAY ==
[2018-10-04 14:26] VITALS: BMI 30.5
--- NOTE | 2018-10-25 08:49 | ECHOCS_ITS ---
Reason For Study: PHTN Procedure This was a 2D Doppler, Color Flow transthoracic echocardiogram. The study was technically difficult. Contrast injection was performed. Exam performed in department. Left Ventricle Normal size and thickness. The estimated ejection fraction is 65 %. Unable to assess diastolic dysfunction due to arrhythmia. No regional wall motion abnormalities noted. Right Ventricle Normal size and thickness. Normal systolic function. Atria The left atrium is moderately enlarged. The right atrium is moderately enlarged. Normal atrial septum. Mitral Valve The mitral valve is structurally normal. No prolapse or stenosis seen. Tricuspid Valve Normal tricuspid valve. Mild (1+) tricuspid valve insufficiency. Right ventricular systolic pressure estimated to be 40 mmHg. Mild pulmonary hypertension. Aortic Valve Trisinus/trileaflet aortic valve. Normal aortic valve. Pulmonic Valve The pulmonic valve is not well visualized. Great Vessels Normal aortic root. Normal arch. Normal inferior vena cava. Inferior vena cava collapse with sniff. Pericardium/Pleural No pericardial effusion. Medication 22 gauge I.V. with prn adaptor inserted into right arm. Diluted definity 3.0ml given slow IV push to enhance endocardial definition. MMode/2D Measurements & Calculations LVIDd: 4.3 cm IVSd: 0.90 cm Ao root diam: 3.5 cm LVIDs: 3.1 cm LVPWd: 0.90 cm RVDd: 3.6 cm FS: 28.8 % LAV(MOD-bp): 60.4 ml LVAd ap4: 19.9 cm2 SV(MOD-sp4): 32.6 ml LAV(MOD-bp) Indexed: 34.1 ml/m2 EDV(MOD-sp4): 52.3 ml LAV(MOD-sp2): 51.9 ml EDV(sp4-el): 52.8 ml LAV(MOD-sp4): 69.3 ml LVAs ap4: 11.0 cm2 ESV(MOD-sp4): 19.7 ml ESV(sp4-el): 19.1 ml EF(MOD-sp4): 62.3 % EF(sp4-el): 63.7 % SV(sp4-el): 33.7 ml LA A4 area: 24.0 cm2 LA dimension(2D): 4.5 cm RA A4 area: 21.3 cm2 Doppler Measurements & Calculations Ao V2 max: 132.2 cm/sec LV V1 max: 90.1 cm/sec PA V2 max: 79.0 cm/sec Ao max P.0 mmHg LV V1 max P.3 mmHg PI end-d tomer: 78.3 cm/sec TR max tomer: 243.2 cm/sec TR max P.7 mmHg Interpretation Summary The estimated ejection fraction is 65 %. Unable to assess diastolic dysfunction due to arrhythmia. The left atrium is moderately enlarged. The right atrium is moderately enlarged. Mild (1+) tricuspid valve insufficiency. Right ventricular systolic pressure estimated to be 40 mmHg. Mild pulmonary hypertension. Compared to echo report dated 07/27/2017, no appreciable changes noted. Pt appears to be in 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. The study was technically difficult. Contrast injection was performed. Ordering Physician: Nadeem Sheriff Referring Physician: CATERINA ALLISON CHI Performed By: Rachna Salazar, LIBIA, RVT
== END ==
PROVIDERS: Family Provider Family Medicine Geriatric Medicine; PCP Family Medicine Geriatric Medicine; Referring Provider Internal Medicine Cardiovascular Disease; Visit Provider Internal Medicine Cardiovascular Disease
DX: I51.7 Cardiomegaly (principal)
CPT/HCPCS: 36415; 85610; 93306; Q9957; A4216; C8929

== ENCOUNTER 2018-10-25 10:05 | Outpatient (RCR) | payer MEDICARE, OTHER, SELFPAY ==
[2018-10-04 14:26] VITALS: BMI 30.5
[2018-10-25 11:46] LABS: Prothrombin Time (Protime)PT. 22.6 SECONDS (11.7-14.9)
== END 2018-10-25 11:00 | disposition home or self-care (01) ==
LOC: LAB 10:05
PROVIDERS: Family Provider Family Medicine Geriatric Medicine; PCP Family Medicine Geriatric Medicine; Referring Provider Internal Medicine Cardiovascular Disease; Visit Provider Internal Medicine Cardiovascular Disease
DX: I48.0 Paroxysmal 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 (principal); Z79.01 Long term (current) use of anticoagulants
CPT/HCPCS: 36415; 85610

== ENCOUNTER 2018-11-22 10:52 | Outpatient (RCR) | payer MEDICARE, OTHER, SELFPAY ==
[2018-10-04 14:26] VITALS: BMI 30.5
[2018-11-22 11:24] LABS: International Normalized Ratio 2.4; Prothrombin Time (Protime)PT. 25.9 SECONDS (11.7-14.9)
== END 2018-11-22 18:00 | disposition home or self-care (01) ==
LOC: LAB 10:52
PROVIDERS: Family Provider Family Medicine Geriatric Medicine; PCP Family Medicine Geriatric Medicine; Referring Provider Internal Medicine Cardiovascular Disease; Visit Provider Internal Medicine Cardiovascular Disease
DX: I48.0 Paroxysmal 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 (principal); Z79.01 Long term (current) use of anticoagulants
CPT/HCPCS: 36415; 85610

== ENCOUNTER 2018-12-20 10:29 | Outpatient (RCR) | payer MEDICARE, OTHER, SELFPAY ==
[2018-10-04 14:26] VITALS: BMI 30.5
[2018-12-20 11:43] LABS: International Normalized Ratio 2.6; Prothrombin Time (Protime)PT. 27.6 SECONDS (11.7-14.9)
== END 2018-12-20 18:00 | disposition home or self-care (01) ==
LOC: LAB 10:29
PROVIDERS: Family Provider Family Medicine Geriatric Medicine; PCP Family Medicine Geriatric Medicine; Referring Provider Internal Medicine Cardiovascular Disease; Visit Provider Internal Medicine Cardiovascular Disease
DX: I48.0 Paroxysmal 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 (principal); Z79.01 Long term (current) use of anticoagulants
CPT/HCPCS: 36415; 85610

== ENCOUNTER 2019-01-17 12:37 | Outpatient (RCR) | payer MEDICARE, OTHER, SELFPAY ==
[2018-10-04 14:26] VITALS: BMI 30.5
[2019-01-17 14:32] LABS: International Normalized Ratio 2.5; Prothrombin Time (Protime)PT. 27.4 SECONDS (11.7-14.9)
== END 2019-01-17 18:00 | disposition home or self-care (01) ==
LOC: LAB 12:37
PROVIDERS: Family Provider Family Medicine Geriatric Medicine; PCP Family Medicine Geriatric Medicine; Referring Provider Internal Medicine Cardiovascular Disease; Visit Provider Internal Medicine Cardiovascular Disease
DX: I48.0 Paroxysmal 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 (principal); Z79.01 Long term (current) use of anticoagulants
CPT/HCPCS: 36415; 85610

== ENCOUNTER → 2019-01-31 10:06 | Outpatient (CLI) | payer MEDICARE, OTHER, SELFPAY ==
[2019-01-24 11:36] VITALS: BMI 29.0
[2019-01-31 13:50] LABS: AST(SGOT) 26 U/L (15-37); Alanine Aminotransfer ALT/SGPT 20 U/L (13-56); Albumin, Serum 3.9 g/dL (3.2-5.0); Alkaline Phosphatase 123 U/L (45-117); Bilirubin, Direct 0.16 mg/dL (0.00-0.30); Cholesterol 152 mg/dL (200); Globulin 3.7 g/dL (2.2-4.2); High Density Lipoprotein 66 mg/dL; Protein, Total 7.6 g/dL (6.4-8.2); Triglycerides 118 mg/dL; Very Low Density Lipoprotein 24 mg/dL (5-40)
== END ==
PROVIDERS: Family Provider Family Medicine Geriatric Medicine; PCP Family Medicine Geriatric Medicine; Referring Provider Internal Medicine Cardiovascular Disease; Visit Provider Internal Medicine Cardiovascular Disease
DX: I10 Essential (primary) hypertension (principal); E87.1 Hypo-osmolality and hyponatremia; Z79.01 Long term (current) use of anticoagulants
CPT/HCPCS: 36415; 80061; 80076

== ENCOUNTER 2019-02-21 11:34 | Outpatient (RCR) | payer MEDICARE, OTHER, SELFPAY ==
[2019-01-24 11:36] VITALS: BMI 29.0
[2019-02-21 12:58] LABS: International Normalized Ratio 2.7; Prothrombin Time (Protime)PT. 28.6 SECONDS (11.7-14.9)
== END 2019-02-21 18:00 | disposition home or self-care (01) ==
LOC: LAB 11:34
PROVIDERS: Family Provider Family Medicine Geriatric Medicine; PCP Family Medicine Geriatric Medicine; Referring Provider Internal Medicine Cardiovascular Disease; Visit Provider Internal Medicine Cardiovascular Disease
DX: I48.20 Chronic 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, unspecified (principal); Z79.01 Long term (current) use of anticoagulants
CPT/HCPCS: 36415; 85610

== ENCOUNTER 2019-04-04 12:01 | Outpatient (RCR) | payer MEDICARE, OTHER, SELFPAY ==
[2019-01-24 11:36] VITALS: BMI 29.0
[2019-04-04 12:46] LABS: International Normalized Ratio 2.4; Prothrombin Time (Protime)PT. 25.8 SECONDS (11.7-14.9)
== END 2019-04-04 18:00 | disposition home or self-care (01) ==
LOC: LAB 12:01
PROVIDERS: Family Provider Family Medicine Geriatric Medicine; PCP Family Medicine Geriatric Medicine; Referring Provider Internal Medicine Cardiovascular Disease; Visit Provider Internal Medicine Cardiovascular Disease
DX: I48.20 Chronic 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, unspecified (principal); Z79.01 Long term (current) use of anticoagulants
CPT/HCPCS: 36415; 85610

== ENCOUNTER → 2019-05-06 | Outpatient (CLI) | payer MEDICARE, OTHER, SELFPAY ==
[2019-01-24 11:36] VITALS: BMI 29.0
[2019-05-06 12:38] LABS: International Normalized Ratio 2.6; Prothrombin Time (Protime)PT. 27.7 SECONDS (11.7-14.9)
== END | disposition home or self-care (01) ==
LOC: LABSPEC 10:50
PROVIDERS: PCP Family Medicine Geriatric Medicine; Visit Provider Internal Medicine Cardiovascular Disease
DX: I48.0 Paroxysmal 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 (principal); Z79.01 Long term (current) use of anticoagulants
CPT/HCPCS: 36415; 85610

== ENCOUNTER → 2019-06-03 08:12 | Outpatient (CLI) | payer MEDICARE, OTHER, SELFPAY ==
[2019-01-24 11:36] VITALS: BMI 29.0
[2019-06-03 09:04] LABS: International Normalized Ratio 2.8; Prothrombin Time (Protime)PT. 28.9 SECONDS (11.7-14.9)
== END ==
PROVIDERS: Visit Provider Internal Medicine Cardiovascular Disease
DX: I48.0 Paroxysmal 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 (principal); Z79.01 Long term (current) use of anticoagulants
CPT/HCPCS: 36415; 85610

== ENCOUNTER → 2019-07-01 10:12 | Outpatient (CLI) | payer MEDICARE, OTHER, SELFPAY ==
[2019-06-06 10:05] VITALS: BMI 28.3
[2019-07-01 12:06] LABS: Prothrombin Time (Protime)PT. 22.5 SECONDS (11.7-14.9)
== END ==
PROVIDERS: Visit Provider Internal Medicine Cardiovascular Disease
DX: I48.0 Paroxysmal 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 (principal); Z79.01 Long term (current) use of anticoagulants
CPT/HCPCS: 36415; 85610

== ENCOUNTER → 2019-07-29 04:17 | Outpatient (CLI) | payer MEDICARE, OTHER, SELFPAY ==
[2019-06-06 10:05] VITALS: BMI 28.3
[2019-07-29 09:44] LABS: International Normalized Ratio 1.7; Prothrombin Time (Protime)PT. 19.1 SECONDS (11.7-14.9)
[2019-07-29 09:49] LABS: AST(SGOT) 15 U/L (15-37); Alanine Aminotransfer ALT/SGPT 19 U/L (13-56); Alkaline Phosphatase 116 U/L (45-117); Bilirubin, Direct 0.17 mg/dL (0.00-0.30); Cholesterol 177 mg/dL (200); Globulin 3.9 g/dL (2.2-4.2); High Density Lipoprotein 69 mg/dL; Protein, Total 7.9 g/dL (6.4-8.2); Triglycerides 113 mg/dL; Very Low Density Lipoprotein 23 mg/dL (5-40)
== END ==
PROVIDERS: Referring Provider Internal Medicine Cardiovascular Disease; Visit Provider Internal Medicine Cardiovascular Disease
DX: I48.0 Paroxysmal 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 (principal); Z79.01 Long term (current) use of anticoagulants; E78.00 Pure hypercholesterolemia, unspecified; E87.1 Hypo-osmolality and hyponatremia; I10 Essential (primary) hypertension
CPT/HCPCS: 36415; 80061; 80076; 85610

== ENCOUNTER → 2019-08-05 07:11 | Outpatient (CLI) | payer MEDICARE, OTHER, SELFPAY ==
[2019-06-06 10:05] VITALS: BMI 28.3
[2019-08-05 09:12] LABS: International Normalized Ratio 1.9; Prothrombin Time (Protime)PT. 20.8 SECONDS (11.7-14.9)
== END ==
PROVIDERS: Referring Provider Internal Medicine Cardiovascular Disease; Visit Provider Internal Medicine Cardiovascular Disease
DX: I48.0 Paroxysmal 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 (principal); Z79.01 Long term (current) use of anticoagulants
CPT/HCPCS: 36415; 85610

== ENCOUNTER → 2019-08-19 08:59 | Outpatient (CLI) | payer MEDICARE, OTHER, SELFPAY ==
[2019-06-06 10:05] VITALS: BMI 28.3
[2019-08-19 11:12] LABS: International Normalized Ratio 2.5; Prothrombin Time (Protime)PT. 26.2 SECONDS (11.7-14.9)
== END ==
PROVIDERS: Visit Provider Internal Medicine Cardiovascular Disease
DX: I48.0 Paroxysmal 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 (principal); Z79.01 Long term (current) use of anticoagulants
CPT/HCPCS: 36415; 85610

== ENCOUNTER → 2019-09-09 04:15 | Outpatient (CLI) | payer MEDICARE, OTHER, SELFPAY ==
[2019-06-06 10:05] VITALS: BMI 28.3
[2019-09-09 10:31] LABS: International Normalized Ratio 2.2; Prothrombin Time (Protime)PT. 23.9 SECONDS (11.7-14.9)
== END ==
PROVIDERS: Referring Provider Internal Medicine Cardiovascular Disease; Visit Provider Internal Medicine Cardiovascular Disease
DX: I48.0 Paroxysmal 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 (principal); Z79.01 Long term (current) use of anticoagulants
CPT/HCPCS: 36415; 85610

== ENCOUNTER → 2019-10-07 09:16 | Outpatient (CLI) | payer MEDICARE, OTHER, SELFPAY ==
[2019-06-06 10:05] VITALS: BMI 28.3
[2019-10-07 12:18] LABS: Absolute Lymphocyte Count 0.84 X10^3/uL (0.83-4.51); Absolute Neutrophil Count 4.9 X10^3/uL (2.0-7.7); Basophil# 0.04 X10^3/uL; Basophil% 0.6 % (0-1); Eosinophil# 0.36 X10^3/uL; Eosinophils% 5.3 % (0-5); Hematocrit 39.2 % (37-47); Hemoglobin 12.6 g/dL (12.0-15.0); Lymphocyte # 0.84 X10^3/ul (4.0); Lymphocyte % 12.5 % (19-41); Mean Corp Hgb Conc 32.1 g/dL (32-36); Mean Corpuscular Hgb 30.7 pg (27.0-32.0); Mean Corpuscular Volume 95.6 fL (81-99); Mean Platelet Vol. 10.7 fl (6.2-12.0); Monocyte# 0.55 X10^3/uL; Monocyte% 8.2 % (0-10); NRBC Flagged by Analyzer 0 % (0-5); Neutrophil # 4.94 X10^3/uL (2.7-7.7); Neutrophil % 73.3 % (47-70); Platelet Count 234 K/mm3 (150-450); RBC Distribution Width CV 13.2 % (11.6-14.6); RBC Distribution Width SD 45.3 fl (35.1-43.9); White Blood Count 6.7 K/mm3 (4.4-11.0)
[2019-10-07 12:36] LABS: International Normalized Ratio 2.3; Prothrombin Time (Protime)PT. 24.9 SECONDS (11.7-14.9)
[2019-10-07 12:40] LABS: Vitamin D,25 Hydroxy 28.5 ng/mL
[2019-10-07 12:54] LABS: AST(SGOT) 18 U/L (15-37); Alanine Aminotransfer ALT/SGPT 20 U/L (13-56); Albumin, Serum 3.8 g/dL (3.2-5.0); Alkaline Phosphatase 111 U/L (45-117); Anion Gap 6 (5-15); BUN 15 mg/dL (7-18); BUN/Creat Ratio 17.8 RATIO (10-20); Calcium,Total 9.4 mg/dL (8.5-10.1); Chloride 105 mmol/L (98-107); Cholesterol 171 mg/dL (200); Creatinine, Serum 0.84 mg/dL (0.55-1.02); EST Glomerular Filtration Rate 68 mL/min (>60); Est Glom Filt Rate - Afr Amer 82 mL/min (>60); Globulin 3.7 g/dL (2.2-4.2); Glucose 79 mg/dL (74-106); High Density Lipoprotein 62 mg/dL; Potassium 4.2 mmol/L (3.5-5.1); Protein, Total 7.5 g/dL (6.4-8.2); Sodium Level 139 mmol/L (136-145); Thyroid Stim Hormone (TSH) 2.42 uIU/mL (0.358-3.74); Triglycerides 117 mg/dL; Very Low Density Lipoprotein 23 mg/dL (5-40)
== END ==
PROVIDERS: PCP Family Medicine Geriatric Medicine; Referring Provider Internal Medicine Cardiovascular Disease; Visit Provider Internal Medicine Cardiovascular Disease
DX: E55.9 Vitamin D deficiency, unspecified (principal); I10 Essential (primary) hypertension; E78.5 Hyperlipidemia, unspecified; I48.0 Paroxysmal 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; Z79.01 Long term (current) use of anticoagulants
CPT/HCPCS: 36415; 80053; 80061; 82306; 84443; 85025; 85610

== ENCOUNTER → 2019-11-04 04:07 | Outpatient (CLI) | payer MEDICARE, OTHER, SELFPAY ==
[2019-06-06 10:05] VITALS: BMI 28.3
[2019-11-04 10:39] LABS: International Normalized Ratio 2.2; Prothrombin Time (Protime)PT. 24.2 SECONDS (11.7-14.9)
== END ==
PROVIDERS: PCP Family Medicine Geriatric Medicine; Visit Provider Internal Medicine Cardiovascular Disease
DX: I48.0 Paroxysmal 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 (principal); Z79.01 Long term (current) use of anticoagulants
CPT/HCPCS: 36415; 85610

== ENCOUNTER → 2019-12-04 09:05 | Outpatient (CLI) | payer MEDICARE, OTHER, SELFPAY ==
[2019-06-06 10:05] VITALS: BMI 28.3
[2019-12-04 10:35] LABS: International Normalized Ratio 2.4; Prothrombin Time (Protime)PT. 25.3 SECONDS (11.7-14.9)
== END ==
PROVIDERS: PCP Family Medicine Geriatric Medicine; Referring Provider Internal Medicine Cardiovascular Disease; Visit Provider Internal Medicine Cardiovascular Disease
DX: I48.0 Paroxysmal 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 (principal); Z79.01 Long term (current) use of anticoagulants
CPT/HCPCS: 36415; 85610

== ENCOUNTER → 2020-01-03 08:56 | Outpatient (CLI) | payer MEDICARE, OTHER, SELFPAY ==
[2019-06-06 10:05] VITALS: BMI 28.3
[2020-01-03 10:25] LABS: International Normalized Ratio 2.3; Prothrombin Time (Protime)PT. 24.6 SECONDS (11.7-14.9)
== END ==
PROVIDERS: PCP Family Medicine Geriatric Medicine; Referring Provider Internal Medicine Cardiovascular Disease; Visit Provider Internal Medicine Cardiovascular Disease
DX: I48.0 Paroxysmal 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 (principal); Z79.01 Long term (current) use of anticoagulants
CPT/HCPCS: 36415; 85610

== ENCOUNTER → 2020-01-23 09:11 | Outpatient (CLI) | payer MEDICARE, OTHER, SELFPAY ==
[2019-06-06 10:05] VITALS: BMI 28.3
[2020-01-23 10:59] LABS: International Normalized Ratio 2.6; Prothrombin Time (Protime)PT. 27.6 SECONDS (11.7-14.9)
== END ==
PROVIDERS: PCP Family Medicine Geriatric Medicine; Referring Provider Internal Medicine Cardiovascular Disease; Visit Provider Internal Medicine Cardiovascular Disease
DX: I48.0 Paroxysmal 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 (principal); Z79.01 Long term (current) use of anticoagulants
CPT/HCPCS: 36415; 85610

== ENCOUNTER → 2020-02-21 08:52 | Outpatient (CLI) | payer MEDICARE, OTHER, SELFPAY ==
[2019-06-06 10:05] VITALS: BMI 28.3
== END ==
PROVIDERS: PCP Family Medicine Geriatric Medicine; Visit Provider Internal Medicine Cardiovascular Disease
DX: I48.0 Paroxysmal 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 (principal); Z79.01 Long term (current) use of anticoagulants
CPT/HCPCS: 36415; 85610

== ENCOUNTER → 2020-03-20 07:48 | Outpatient (CLI) | payer MEDICARE, OTHER, SELFPAY ==
[2019-06-06 10:05] VITALS: BMI 28.3
[2020-03-20 10:02] LABS: International Normalized Ratio 2.4; Prothrombin Time (Protime)PT. 25.4 SECONDS (11.7-14.9)
[2020-03-20 10:25] LABS: AST(SGOT) 21 U/L (15-37); Alanine Aminotransfer ALT/SGPT 22 U/L (13-56); Alkaline Phosphatase 133 U/L (45-117); Cholesterol 189 mg/dL (200); Globulin 3.8 g/dL (2.2-4.2); High Density Lipoprotein 80 mg/dL; Protein, Total 7.8 g/dL (6.4-8.2); Triglycerides 117 mg/dL; Very Low Density Lipoprotein 23 mg/dL (5-40)
== END ==
PROVIDERS: Nurse Practitioner Family; PCP Family Medicine Geriatric Medicine; Referring Provider Internal Medicine Cardiovascular Disease; Visit Provider Internal Medicine Cardiovascular Disease
DX: I48.0 Paroxysmal 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 (principal); Z79.01 Long term (current) use of anticoagulants; E78.00 Pure hypercholesterolemia, unspecified; I10 Essential (primary) hypertension; E87.1 Hypo-osmolality and hyponatremia
CPT/HCPCS: 36415; 80061; 80076; 85610

== ENCOUNTER → 2020-04-17 08:00 | Outpatient (CLI) | payer MEDICARE, OTHER, SELFPAY ==
[2019-06-06 10:05] VITALS: BMI 28.3
[2020-04-17 10:07] LABS: International Normalized Ratio 2.5; Prothrombin Time (Protime)PT. 26.7 SECONDS (11.7-14.9)
== END ==
PROVIDERS: PCP Family Medicine Geriatric Medicine; Visit Provider Internal Medicine Cardiovascular Disease
DX: I48.0 Paroxysmal 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 (principal); Z79.01 Long term (current) use of anticoagulants
CPT/HCPCS: 36415; 85610

== ENCOUNTER → 2020-05-15 05:26 | Outpatient (CLI) | payer MEDICARE, OTHER, SELFPAY ==
[2019-06-06 10:05] VITALS: BMI 28.3
[2020-05-15 11:00] LABS: International Normalized Ratio 2.2; Prothrombin Time (Protime)PT. 23.3 SECONDS (11.7-14.9)
== END ==
PROVIDERS: PCP Family Medicine Geriatric Medicine; Referring Provider Internal Medicine Cardiovascular Disease; Visit Provider Internal Medicine Cardiovascular Disease
DX: I48.0 Paroxysmal 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 (principal); Z79.01 Long term (current) use of anticoagulants
CPT/HCPCS: 36415; 85610

== ENCOUNTER → 2020-06-11 08:57 | Outpatient (CLI) | payer MEDICARE, OTHER, SELFPAY ==
[2019-06-06 10:05] VITALS: BMI 28.3
[2020-06-11 10:58] LABS: International Normalized Ratio 2.6; Prothrombin Time (Protime)PT. 26.8 SECONDS (11.7-14.9)
== END ==
PROVIDERS: PCP Family Medicine Geriatric Medicine; Referring Provider Internal Medicine Cardiovascular Disease; Visit Provider Internal Medicine Cardiovascular Disease
DX: I48.0 Paroxysmal 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 (principal); Z79.01 Long term (current) use of anticoagulants
CPT/HCPCS: 36415; 85610

== ENCOUNTER → 2020-07-09 09:09 | Outpatient (CLI) | payer MEDICARE, OTHER, SELFPAY ==
[2019-06-06 10:05] VITALS: BMI 28.3
[2020-07-09 11:21] LABS: International Normalized Ratio 2.1
== END ==
PROVIDERS: PCP Family Medicine Geriatric Medicine; Visit Provider Internal Medicine Cardiovascular Disease
DX: I48.0 Paroxysmal 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 (principal); Z79.01 Long term (current) use of anticoagulants
CPT/HCPCS: 36415; 85610

== ENCOUNTER → 2020-08-06 09:30 | Outpatient (CLI) | payer MEDICARE, OTHER, SELFPAY ==
[2020-07-14 09:55] VITALS: BMI 27.8
[2020-08-06 10:55] LABS: International Normalized Ratio 2.8; Prothrombin Time (Protime)PT. 29.1 SECONDS (11.7-14.9)
== END ==
PROVIDERS: PCP Family Medicine Geriatric Medicine; Referring Provider Internal Medicine Cardiovascular Disease; Visit Provider Internal Medicine Cardiovascular Disease
DX: I48.0 Paroxysmal 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 (principal); Z79.01 Long term (current) use of anticoagulants
CPT/HCPCS: 36415; 85610

== ENCOUNTER → 2020-09-03 05:09 | Outpatient (CLI) | payer MEDICARE, OTHER, SELFPAY ==
[2020-07-14 09:55] VITALS: BMI 27.8
[2020-09-03 10:56] LABS: Prothrombin Time (Protime)PT. 21.7 SECONDS (11.7-14.9)
== END ==
PROVIDERS: PCP Family Medicine Geriatric Medicine; Referring Provider Internal Medicine Cardiovascular Disease; Visit Provider Internal Medicine Cardiovascular Disease
DX: I48.0 Paroxysmal 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 (principal); Z79.01 Long term (current) use of anticoagulants
CPT/HCPCS: 36415; 85610

== ENCOUNTER → 2020-10-02 07:39 | Outpatient (CLI) | payer MEDICARE, OTHER, SELFPAY ==
[2020-10-02 09:24] LABS: Prothrombin Time (Protime)PT. 21.9 SECONDS (11.7-14.9)
[2020-10-02 09:33] LABS: AST(SGOT) 18 U/L (15-37); Alanine Aminotransfer ALT/SGPT 20 U/L (13-56); Albumin, Serum 3.8 g/dL (3.2-5.0); Alkaline Phosphatase 114 U/L (45-117); Bilirubin, Direct 0.17 mg/dL (0.00-0.30); Cholesterol 167 mg/dL (200); Globulin 3.6 g/dL (2.2-4.2); High Density Lipoprotein 66 mg/dL; Protein, Total 7.4 g/dL (6.4-8.2); Triglycerides 116 mg/dL; Very Low Density Lipoprotein 23 mg/dL (5-40)
== END ==
PROVIDERS: Nurse Practitioner Family; PCP Family Medicine Geriatric Medicine; Visit Provider Internal Medicine Cardiovascular Disease
DX: I48.0 Paroxysmal 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 (principal); Z79.01 Long term (current) use of anticoagulants; E78.00 Pure hypercholesterolemia, unspecified; I10 Essential (primary) hypertension
CPT/HCPCS: 36415; 80061; 80076; 85610

== ENCOUNTER → 2020-10-30 08:35 | Outpatient (CLI) | payer MEDICARE, OTHER, SELFPAY ==
[2020-10-30 12:22] LABS: International Normalized Ratio 2.5; Prothrombin Time (Protime)PT. 25.9 SECONDS (11.7-14.9)
== END ==
PROVIDERS: PCP Family Medicine Geriatric Medicine; Visit Provider Internal Medicine Cardiovascular Disease
DX: I48.0 Paroxysmal 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 (principal); Z79.01 Long term (current) use of anticoagulants
CPT/HCPCS: 36415; 85610

== ENCOUNTER → 2020-11-27 08:49 | Outpatient (CLI) | payer MEDICARE, OTHER, SELFPAY ==
[2020-11-27 10:52] LABS: International Normalized Ratio 2.7; Prothrombin Time (Protime)PT. 27.7 SECONDS (11.7-14.9)
== END ==
PROVIDERS: Referring Provider Internal Medicine Cardiovascular Disease; Visit Provider Internal Medicine Cardiovascular Disease
DX: I48.0 Paroxysmal 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 (principal); Z79.01 Long term (current) use of anticoagulants
CPT/HCPCS: 36415; 85610

== ENCOUNTER → 2020-12-07 09:10 | Outpatient (CLI) | payer MEDICARE, OTHER, SELFPAY ==
[2020-12-07 12:59] LABS: Absolute Lymphocyte Count 0.96 X10^3/uL (0.83-4.51); Basophil# 0.05 X10^3/uL; Basophil% 0.6 % (0-1); Eosinophil# 0.16 X10^3/uL; Hematocrit 42.1 % (37-47); Hemoglobin 13.7 g/dL (12.0-15.0); Lymphocyte # 0.96 X10^3/ul (0.83-4.51); Lymphocyte % 12.1 % (19-41); Mean Corp Hgb Conc 32.5 g/dL (32-36); Mean Corpuscular Volume 92.3 fL (81-99); Mean Platelet Vol. 11.1 fl (6.2-12.0); Monocyte# 0.74 X10^3/uL; Monocyte% 9.3 % (0-10); NRBC Flagged by Analyzer 0 % (0-5); Neutrophil # 5.98 X10^3/uL (2.7-7.7); Neutrophil % 75.6 % (47-70); Platelet Count 237 K/mm3 (150-450); RBC Distribution Width CV 13.4 % (11.6-14.6); RBC Distribution Width SD 45.6 fl (35.1-43.9); Red Blood Count 4.56 M/mm3 (4.2-5.4); White Blood Count 7.9 K/mm3 (4.4-11.0)
[2020-12-07 13:13] LABS: Vitamin D,25 Hydroxy 24.4 ng/mL
[2020-12-07 13:28] LABS: AST(SGOT) 22 U/L (15-37); Alanine Aminotransfer ALT/SGPT 23 U/L (13-56); Albumin, Serum 3.9 g/dL (3.2-5.0); Alkaline Phosphatase 115 U/L (45-117); Anion Gap 10 (5-15); BUN 17 mg/dL (7-18); BUN/Creat Ratio 14.8 RATIO (10-20); Calcium,Total 9.8 mg/dL (8.5-10.1); Chloride 102 mmol/L (98-107); Creatinine, Serum 1.15 mg/dL (0.55-1.02); EST Glomerular Filtration Rate 48 mL/min (>60); Est Glom Filt Rate - Afr Amer 58 mL/min (>60); Globulin 4.1 g/dL (2.2-4.2); Glucose 136 mg/dL (74-106); Potassium 3.9 mmol/L (3.5-5.1); Sodium Level 138 mmol/L (136-145); Thyroid Stim Hormone (TSH) 3.34 uIU/mL (0.358-3.74)
== END ==
PROVIDERS: Visit Provider Family Medicine Geriatric Medicine
DX: I10 Essential (primary) hypertension (principal); E55.9 Vitamin D deficiency, unspecified
CPT/HCPCS: 36415; 80053; 82306; 84443; 85025

== ENCOUNTER → 2020-12-25 07:52 | Outpatient (CLI) | payer MEDICARE, OTHER, SELFPAY ==
[2020-12-25 12:52] LABS: International Normalized Ratio 2.4; Prothrombin Time (Protime)PT. 25.3 SECONDS (11.7-14.9)
== END ==
PROVIDERS: Visit Provider Internal Medicine Cardiovascular Disease
DX: I48.0 Paroxysmal 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 (principal); Z79.01 Long term (current) use of anticoagulants
CPT/HCPCS: 36415; 85610

== ENCOUNTER → 2021-01-22 03:39 | Outpatient (CLI) | payer MEDICARE, OTHER, SELFPAY ==
[2021-01-22 10:37] LABS: Prothrombin Time (Protime)PT. 21.5 SECONDS (11.7-14.9)
== END ==
PROVIDERS: Referring Provider Internal Medicine Cardiovascular Disease; Visit Provider Internal Medicine Cardiovascular Disease
DX: I48.0 Paroxysmal 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 (principal); Z79.01 Long term (current) use of anticoagulants
CPT/HCPCS: 36415; 85610

== ENCOUNTER 2021-02-18 09:21 | Outpatient (CLI) | payer MEDICARE, OTHER, SELFPAY ==
[2021-02-18 11:07] LABS: Prothrombin Time (Protime)PT. 30.5 SECONDS (11.7-14.9)
== END 2021-02-18 23:59 | disposition short-term general hospital (02) ==
LOC: LAB 09:23
PROVIDERS: Referring Provider Internal Medicine Cardiovascular Disease; Visit Provider Internal Medicine Cardiovascular Disease
DX: I48.0 Paroxysmal 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 (principal); Z79.01 Long term (current) use of anticoagulants
CPT/HCPCS: 36415; 85610

== ENCOUNTER 2021-03-17 11:59 | Outpatient (CLI) | payer MEDICARE, OTHER, SELFPAY ==
[2021-03-17 14:41] LABS: International Normalized Ratio 2.9; Prothrombin Time (Protime)PT. 29.5 SECONDS (11.7-14.9)
== END 2021-03-17 23:59 | disposition short-term general hospital (02) ==
LOC: LAB 12:02
PROVIDERS: Referring Provider Internal Medicine Cardiovascular Disease; Visit Provider Internal Medicine Cardiovascular Disease
DX: I48.0 Paroxysmal 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 (principal); Z79.01 Long term (current) use of anticoagulants
CPT/HCPCS: 36415; 85610

== ENCOUNTER 2021-04-15 04:22 | Outpatient (CLI) | payer MEDICARE, OTHER, SELFPAY ==
[2021-04-15 10:54] LABS: International Normalized Ratio 2.9; Prothrombin Time (Protime)PT. 29.3 SECONDS (11.7-14.9)
== END 2021-04-15 23:59 | disposition home or self-care (01) ==
LOC: LAB 04:24
PROVIDERS: Referring Provider Internal Medicine Cardiovascular Disease; Visit Provider Internal Medicine Cardiovascular Disease
DX: I48.0 Paroxysmal 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 (principal); Z79.01 Long term (current) use of anticoagulants
CPT/HCPCS: 36415; 85610

== ENCOUNTER 2021-05-13 09:01 | Outpatient (CLI) | payer MEDICARE, OTHER, SELFPAY ==
[2021-05-13 11:19] LABS: Prothrombin Time (Protime)PT. 30.7 SECONDS (11.7-14.9)
== END 2021-05-13 23:59 | disposition home or self-care (01) ==
LOC: LAB 09:03
PROVIDERS: Referring Provider Internal Medicine Cardiovascular Disease; Visit Provider Internal Medicine Cardiovascular Disease
DX: I48.0 Paroxysmal 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 (principal); Z79.01 Long term (current) use of anticoagulants
CPT/HCPCS: 36415; 85610

== ENCOUNTER → 2021-06-07 | Outpatient (CLI) | payer MEDICARE, OTHER, SELFPAY ==
[2021-06-07 11:37] LABS: Absolute Lymphocyte Count 0.86 X10^3/uL (0.83-4.51); Absolute Neutrophil Count 4.2 X10^3/uL (2.0-7.7); Basophil# 0.04 X10^3/uL; Basophil% 0.7 % (0-1); Eosinophil# 0.22 X10^3/uL; Eosinophils% 3.7 % (0-5); Hematocrit 38.5 % (37-47); Hemoglobin 12.6 g/dL (12.0-15.0); Lymphocyte # 0.86 X10^3/ul (0.83-4.51); Lymphocyte % 14.6 % (19-41); Mean Corp Hgb Conc 32.7 g/dL (32-36); Mean Corpuscular Hgb 30.5 pg (27.0-32.0); Mean Corpuscular Volume 93.2 fL (81-99); Mean Platelet Vol. 10.6 fl (6.2-12.0); Monocyte# 0.59 X10^3/uL; NRBC Flagged by Analyzer 0 % (0-5); Neutrophil # 4.18 X10^3/uL (2.7-7.7); Neutrophil % 70.7 % (47-70); Platelet Count 225 K/mm3 (150-450); RBC Distribution Width CV 12.9 % (11.6-14.6); RBC Distribution Width SD 43.8 fl (35.1-43.9); Red Blood Count 4.13 M/mm3 (4.2-5.4); White Blood Count 5.9 K/mm3 (4.4-11.0)
[2021-06-07 11:57] LABS: ALB/GLOB Ratio 1.1 RATIO (0.9-2.4); AST(SGOT) 27 U/L (15-37); Alanine Aminotransfer ALT/SGPT 29 U/L (13-56); Albumin, Serum 3.8 g/dL (3.2-5.0); Alkaline Phosphatase 118 U/L (45-117); Anion Gap 4 (5-15); BUN 20 mg/dL (7-18); BUN/Creat Ratio 19.4 RATIO (10-20); Calcium,Total 9.4 mg/dL (8.5-10.1); Chloride 105 mmol/L (98-107); Creatinine, Serum 1.03 mg/dL (0.55-1.02); EST Glomerular Filtration Rate 54 mL/min (>60); Est Glom Filt Rate - Afr Amer 65 mL/min (>60); Globulin 3.6 g/dL (2.2-4.2); Glucose 115 mg/dL (74-106); Potassium 4.3 mmol/L (3.5-5.1); Protein, Total 7.4 g/dL (6.4-8.2); Sodium Level 139 mmol/L (136-145); Thyroid Stim Hormone (TSH) 3.16 uIU/mL (0.358-3.74)
[2021-06-07 12:17] LABS: Vitamin D,25 Hydroxy 25.6 ng/mL
== END | disposition home or self-care (01) ==
LOC: POLAB3 10:47
PROVIDERS: Visit Provider Family Medicine Geriatric Medicine
DX: E55.9 Vitamin D deficiency, unspecified (principal); I10 Essential (primary) hypertension
CPT/HCPCS: 36415; 80053; 82306; 84443; 85025

== ENCOUNTER → 2021-06-09 | Outpatient (CLI) | payer MEDICARE, OTHER, SELFPAY ==
[2021-06-09 12:18] LABS: Cholesterol 173 mg/dL (200); High Density Lipoprotein 72 mg/dL; Triglycerides 112 mg/dL; Very Low Density Lipoprotein 22 mg/dL (5-40)
[2021-06-09 12:20] LABS: International Normalized Ratio 2.5; Prothrombin Time (Protime)PT. 26.4 SECONDS (11.7-14.9)
== END | disposition home or self-care (01) ==
PROVIDERS: Nurse Practitioner Family; Visit Provider Internal Medicine Cardiovascular Disease
DX: I48.0 Paroxysmal 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 (principal); Z79.01 Long term (current) use of anticoagulants
CPT/HCPCS: 36415; 80061; 82248; 85610

== ENCOUNTER → 2021-07-09 | Outpatient (CLI) | payer MEDICARE, OTHER, SELFPAY ==
[2021-07-09 10:16] LABS: INR Fingerstick 2.1; Prothrombin Time Fingerstick 24.6 SEC (11.7-14.9)
== END | disposition home or self-care (01) ==
PROVIDERS: Visit Provider Internal Medicine Cardiovascular Disease
DX: I48.0 Paroxysmal 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 (principal); Z79.01 Long term (current) use of anticoagulants
CPT/HCPCS: 36416; 85610

== ENCOUNTER → 2021-08-06 | Outpatient (CLI) | payer MEDICARE, OTHER, SELFPAY ==
[2021-08-06 10:18] LABS: International Normalized Ratio 2.4; Prothrombin Time (Protime)PT. 25.5 SECONDS (11.7-14.9)
== END | disposition home or self-care (01) ==
LOC: LAB 07:57
PROVIDERS: PCP Family Medicine Geriatric Medicine; Referring Provider Internal Medicine Cardiovascular Disease; Visit Provider Internal Medicine Cardiovascular Disease
DX: I48.0 Paroxysmal 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 (principal); Z79.01 Long term (current) use of anticoagulants
CPT/HCPCS: 36415; 85610

== ENCOUNTER → 2021-09-06 | Outpatient (CLI) | payer MEDICARE, OTHER, SELFPAY ==
[2021-09-06 10:51] LABS: International Normalized Ratio 2.2; Prothrombin Time (Protime)PT. 24.2 SECONDS (11.7-14.9)
== END | disposition home or self-care (01) ==
LOC: LAB 09:36
PROVIDERS: PCP Family Medicine Geriatric Medicine; Referring Provider Internal Medicine Cardiovascular Disease; Visit Provider Internal Medicine Cardiovascular Disease
DX: I48.0 Paroxysmal 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 (principal); Z79.01 Long term (current) use of anticoagulants
CPT/HCPCS: 36415; 85610

== ENCOUNTER → 2021-10-07 | Outpatient (CLI) | payer MEDICARE, OTHER, SELFPAY ==
[2021-10-07 11:39] LABS: International Normalized Ratio 2.4; Prothrombin Time (Protime)PT. 25.4 SECONDS (11.7-14.9)
== END | disposition home or self-care (01) ==
LOC: LAB 08:43
PROVIDERS: PCP Family Medicine Geriatric Medicine; Referring Provider Internal Medicine Cardiovascular Disease; Visit Provider Internal Medicine Cardiovascular Disease
DX: I48.0 Paroxysmal 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 (principal); Z79.01 Long term (current) use of anticoagulants
CPT/HCPCS: 36415; 85610

== ENCOUNTER → 2021-11-04 | Outpatient (CLI) | payer MEDICARE, OTHER, SELFPAY ==
[2021-11-04 10:58] LABS: International Normalized Ratio 2.9; Prothrombin Time (Protime)PT. 29.8 SECONDS (11.7-14.9)
== END | disposition home or self-care (01) ==
LOC: LAB 08:17
PROVIDERS: PCP Family Medicine Geriatric Medicine; Referring Provider Internal Medicine Cardiovascular Disease; Visit Provider Internal Medicine Cardiovascular Disease
DX: I48.0 Paroxysmal 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 (principal); Z79.01 Long term (current) use of anticoagulants
CPT/HCPCS: 36415; 85610

== ENCOUNTER → 2021-12-03 | Outpatient (CLI) | payer MEDICARE, OTHER, SELFPAY ==
[2021-12-03 10:48] LABS: International Normalized Ratio 3.1; Prothrombin Time (Protime)PT. 31.8 SECONDS (11.7-14.9)
== END | disposition home or self-care (01) ==
LOC: LAB 08:30
PROVIDERS: PCP Family Medicine Geriatric Medicine; Visit Provider Internal Medicine Cardiovascular Disease
DX: I48.0 Paroxysmal 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 (principal); Z79.01 Long term (current) use of anticoagulants
CPT/HCPCS: 36415; 85610

== ENCOUNTER → 2021-12-14 | Outpatient (CLI) | payer MEDICARE, OTHER, SELFPAY ==
[2021-12-14 12:29] LABS: Absolute Lymphocyte Count 0.75 X10^3/uL (0.83-4.51); Basophil# 0.03 X10^3/uL; Basophil% 0.5 % (0-1); Eosinophils% 1.6 % (0-5); Hematocrit 42.6 % (37-47); Hemoglobin 14.4 g/dL (12.0-15.0); Lymphocyte # 0.75 X10^3/ul (0.83-4.51); Lymphocyte % 11.6 % (19-41); Mean Corp Hgb Conc 33.8 g/dL (32-36); Mean Corpuscular Hgb 31.4 pg (27.0-32.0); Mean Corpuscular Volume 92.8 fL (81-99); Mean Platelet Vol. 11.1 fl (6.2-12.0); Monocyte# 0.52 X10^3/uL; Monocyte% 8.1 % (0-10); NRBC Flagged by Analyzer 0 % (0-5); Neutrophil # 5.02 X10^3/uL (2.7-7.7); Neutrophil % 77.9 % (47-70); Platelet Count 231 K/mm3 (150-450); RBC Distribution Width CV 13.2 % (11.6-14.6); RBC Distribution Width SD 44.7 fl (35.1-43.9); Red Blood Count 4.59 M/mm3 (4.2-5.4); White Blood Count 6.4 K/mm3 (4.4-11.0)
[2021-12-14 12:55] LABS: Vitamin D,25 Hydroxy 28.2 ng/mL
[2021-12-14 13:05] LABS: ALB/GLOB Ratio 1.1 RATIO (0.9-2.4); AST(SGOT) 22 U/L (15-37); Alanine Aminotransfer ALT/SGPT 21 U/L (13-56); Albumin, Serum 4.2 g/dL (3.2-5.0); Alkaline Phosphatase 114 U/L (45-117); Anion Gap 8 (5-15); BUN 21 mg/dL (7-18); BUN/Creat Ratio 20.2 RATIO (10-20); Calcium,Total 10.1 mg/dL (8.5-10.1); Chloride 105 mmol/L (98-107); Creatinine, Serum 1.04 mg/dL (0.55-1.02); EST Glomerular Filtration Rate 53 mL/min (>60); Est Glom Filt Rate - Afr Amer 64 mL/min (>60); Globulin 3.7 g/dL (2.2-4.2); Glucose 108 mg/dL (74-106); Potassium 3.7 mmol/L (3.5-5.1); Protein, Total 7.9 g/dL (6.4-8.2); Sodium Level 139 mmol/L (136-145); Thyroid Stim Hormone (TSH) 3.13 uIU/mL (0.358-3.74)
== END | disposition home or self-care (01) ==
LOC: POLAB3 10:04
PROVIDERS: PCP Family Medicine Geriatric Medicine; Visit Provider Family Medicine Geriatric Medicine
DX: I10 Essential (primary) hypertension (principal); E55.9 Vitamin D deficiency, unspecified
CPT/HCPCS: 36415; 80053; 82306; 84443; 85025

== ENCOUNTER → 2021-12-17 | Outpatient (CLI) | payer MEDICARE, OTHER, SELFPAY ==
[2021-12-17 12:19] LABS: International Normalized Ratio 2.4
[2021-12-17 12:25] LABS: AST(SGOT) 14 U/L (15-37); Alanine Aminotransfer ALT/SGPT 23 U/L (13-56); Albumin, Serum 3.8 g/dL (3.2-5.0); Alkaline Phosphatase 107 U/L (45-117); Bilirubin, Direct 0.22 mg/dL (0.00-0.30); Cholesterol 183 mg/dL (200); Globulin 3.7 g/dL (2.2-4.2); High Density Lipoprotein 80 mg/dL; Protein, Total 7.5 g/dL (6.4-8.2); Triglycerides 124 mg/dL; Very Low Density Lipoprotein 25 mg/dL (5-40)
== END | disposition home or self-care (01) ==
LOC: LAB 09:02
PROVIDERS: Physician Assistant Medical; PCP Family Medicine Geriatric Medicine; Visit Provider Internal Medicine Cardiovascular Disease
DX: I48.0 Paroxysmal 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 (principal); Z79.01 Long term (current) use of anticoagulants; E78.00 Pure hypercholesterolemia, unspecified; E78.5 Hyperlipidemia, unspecified
CPT/HCPCS: 36415; 80061; 80076; 85610

== ENCOUNTER → 2022-01-14 | Outpatient (CLI) | payer MEDICARE, OTHER, SELFPAY ==
[2022-01-14 10:28] LABS: International Normalized Ratio 2.5; Prothrombin Time (Protime)PT. 26.3 SECONDS (11.7-14.9)
== END | disposition home or self-care (01) ==
LOC: LAB 09:34
PROVIDERS: PCP Family Medicine Geriatric Medicine; Visit Provider Internal Medicine Cardiovascular Disease
DX: I48.0 Paroxysmal 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 (principal); Z79.01 Long term (current) use of anticoagulants
CPT/HCPCS: 36415; 85610

== ENCOUNTER → 2022-02-11 | Outpatient (CLI) | payer MEDICARE, OTHER, SELFPAY ==
[2022-02-11 11:53] LABS: International Normalized Ratio 2.3; Prothrombin Time (Protime)PT. 24.9 SECONDS (11.7-14.9)
== END | disposition home or self-care (01) ==
LOC: LAB 08:12
PROVIDERS: PCP Family Medicine Geriatric Medicine; Visit Provider Internal Medicine Cardiovascular Disease
DX: I48.0 Paroxysmal 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 (principal); Z79.01 Long term (current) use of anticoagulants
CPT/HCPCS: 36415; 85610

== ENCOUNTER → 2022-03-11 | Outpatient (CLI) | payer MEDICARE, OTHER, SELFPAY ==
[2022-03-11 12:28] LABS: International Normalized Ratio 2.4; Prothrombin Time (Protime)PT. 25.4 SECONDS (11.7-14.9)
== END | disposition home or self-care (01) ==
LOC: LAB 11:59
PROVIDERS: PCP Family Medicine Geriatric Medicine; Visit Provider Internal Medicine Cardiovascular Disease
DX: Z79.01 Long term (current) use of anticoagulants (principal); I48.0 Paroxysmal 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
CPT/HCPCS: 36415; 85610

== ENCOUNTER → 2022-04-08 | Outpatient (CLI) | payer MEDICARE, OTHER, SELFPAY ==
[2022-04-08 10:02] LABS: International Normalized Ratio 1.7; Prothrombin Time (Protime)PT. 19.5 SECONDS (11.7-14.9)
== END | disposition home or self-care (01) ==
LOC: LAB 09:14
PROVIDERS: PCP Family Medicine Geriatric Medicine; Visit Provider Internal Medicine Cardiovascular Disease
DX: I48.0 Paroxysmal 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 (principal); Z79.01 Long term (current) use of anticoagulants
CPT/HCPCS: 36415; 85610

== ENCOUNTER → 2022-04-15 | Outpatient (CLI) | payer MEDICARE, OTHER, SELFPAY ==
[2022-04-15 10:50] LABS: International Normalized Ratio 2.4; Prothrombin Time (Protime)PT. 25.8 SECONDS (11.7-14.9)
== END | disposition home or self-care (01) ==
PROVIDERS: PCP Family Medicine Geriatric Medicine; Visit Provider Internal Medicine Cardiovascular Disease
DX: I48.0 Paroxysmal 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 (principal); Z79.01 Long term (current) use of anticoagulants
CPT/HCPCS: 36415; 85610

== ENCOUNTER → 2022-05-12 | Outpatient (CLI) | payer MEDICARE, OTHER, SELFPAY ==
[2022-05-12 10:48] LABS: Prothrombin Time (Protime)PT. 22.3 SECONDS (11.7-14.9)
== END | disposition home or self-care (01) ==
LOC: LAB 08:17
PROVIDERS: PCP Family Medicine Geriatric Medicine; Referring Provider Internal Medicine Cardiovascular Disease; Visit Provider Internal Medicine Cardiovascular Disease
DX: I48.0 Paroxysmal 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 (principal); Z79.01 Long term (current) use of anticoagulants
CPT/HCPCS: 36415; 85610

== ENCOUNTER → 2022-06-10 | Outpatient (CLI) | payer MEDICARE, OTHER, SELFPAY ==
[2022-06-10 10:15] LABS: Prothrombin Time (Protime)PT. 22.5 SECONDS (11.7-14.9)
[2022-06-10 10:28] LABS: AST(SGOT) 21 U/L (15-37); Alanine Aminotransfer ALT/SGPT 21 U/L (13-56); Alkaline Phosphatase 101 U/L (45-117); Bilirubin, Direct 0.26 mg/dL (0.00-0.30); Cholesterol 172 mg/dL (200); Globulin 3.7 g/dL (2.2-4.2); High Density Lipoprotein 86 mg/dL; Protein, Total 7.7 g/dL (6.4-8.2); Triglycerides 90 mg/dL; Very Low Density Lipoprotein 18 mg/dL (5-40)
== END | disposition home or self-care (01) ==
LOC: LAB 08:49
PROVIDERS: PCP Family Medicine Geriatric Medicine; Visit Provider Internal Medicine Cardiovascular Disease
DX: I48.0 Paroxysmal 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 (principal); Z79.01 Long term (current) use of anticoagulants; E78.5 Hyperlipidemia, unspecified
CPT/HCPCS: 36415; 80061; 80076; 85610

== ENCOUNTER → 2022-07-08 | Outpatient (CLI) | payer MEDICARE, OTHER, SELFPAY ==
[2022-07-08 09:56] LABS: International Normalized Ratio 1.6; Prothrombin Time (Protime)PT. 19.2 SECONDS (11.7-14.9)
== END | disposition home or self-care (01) ==
LOC: LAB 09:08
PROVIDERS: PCP Family Medicine Geriatric Medicine; Visit Provider Internal Medicine Cardiovascular Disease
DX: I48.0 Paroxysmal 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 (principal); Z79.01 Long term (current) use of anticoagulants
CPT/HCPCS: 36415; 85610

== ENCOUNTER → 2022-07-21 | Outpatient (CLI) | payer MEDICARE, OTHER, SELFPAY ==
[2022-07-21 11:12] LABS: Prothrombin Time (Protime)PT. 22.8 SECONDS (11.7-14.9)
== END | disposition home or self-care (01) ==
LOC: LAB 09:06
PROVIDERS: PCP Family Medicine Geriatric Medicine; Visit Provider Internal Medicine Cardiovascular Disease
DX: I48.0 Paroxysmal 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 (principal); Z79.01 Long term (current) use of anticoagulants
CPT/HCPCS: 36415; 85610

== ENCOUNTER → 2022-08-11 | Outpatient (CLI) | payer MEDICARE, OTHER, SELFPAY ==
[2022-08-11 11:20] LABS: International Normalized Ratio 1.6; Prothrombin Time (Protime)PT. 19.4 SECONDS (11.7-14.9)
== END | disposition home or self-care (01) ==
LOC: LAB 08:20
PROVIDERS: PCP Family Medicine Geriatric Medicine; Referring Provider Internal Medicine Cardiovascular Disease; Visit Provider Internal Medicine Cardiovascular Disease
DX: I48.0 Paroxysmal 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 (principal); Z79.01 Long term (current) use of anticoagulants
CPT/HCPCS: 36415; 85610

== ENCOUNTER → 2022-08-31 | Outpatient (CLI) | payer MEDICARE, OTHER, SELFPAY ==
[2022-08-31 11:48] LABS: International Normalized Ratio 2.3; Prothrombin Time (Protime)PT. 25.9 SECONDS (11.7-14.9)
== END | disposition home or self-care (01) ==
LOC: LAB 08:33
PROVIDERS: PCP Family Medicine Geriatric Medicine; Referring Provider Internal Medicine Cardiovascular Disease; Visit Provider Internal Medicine Cardiovascular Disease
DX: I48.0 Paroxysmal 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 (principal); Z79.01 Long term (current) use of anticoagulants
CPT/HCPCS: 36415; 85610

== ENCOUNTER 2022-09-25 22:21 | Emergency (ER) | payer MEDICARE, OTHER, SELFPAY ==
[2022-09-25 22:22] VITALS: BP 149/76; PULSE 79; RESP 18; TEMP 36.6; O2SAT 100
[2022-09-25 22:32] VITALS: BMI 24.4
--- NOTE | 2022-09-25 22:45 | CT_ITS ---
INDICATION: head injury EXAMINATION: CT Head or Brain W/O Contrast Injection TECHNIQUE: Multiple axial images were obtained of the head without intravenous contrast. A radiation dose optimization technique was used for this scan. IV Contrast dosage and agent: None. COMPARISON: Head CT from 10/21/2015 FINDINGS: BRAIN PARENCHYMA: No intra- or extra-axial hemorrhage. No evidence of acute major territorial infarct. Small chronic right occipital lobe and left parietal lobe infarcts. Small 8 mm partially calcified dural based lesion again noted along right frontal temporal convexity (series 2 axial image 20). No intracranial mass effect or midline shift. Deep cerebral white matter lucencies are present. Chronic cerebral involutional changes. CSF SPACES: Prominent cerebral sulci and extraaxial spaces secondary to involutional changes. No hydrocephalus. Basal cisterns are patent. Intracranial atherosclerotic calcifications. CALVARIUM, SKULL BASE, PARANASAL SINUSES AND MASTOID AIR CELLS: Calvarium is intact. High left frontoparietal scalp laceration and swelling. No acute findings within imaged paranasal sinuses. Mastoid air cells are well-pneumatized. ORBITS: No acute findings. CT/Brain/Head without Contrast IMPRESSION: 1. Left frontoparietal scalp injury with no calvarial fracture or acute intracranial abnormality. 2. Stable small right frontotemporal partially calcified extra-axial, intracranial lesion. Likely small, chronic meningioma. 3. Brain atrophy with chronic ischemic changes. Electronically Signed: Tapan Boyd MD at 0:02 EDT ,
--- NOTE | 2022-09-25 22:45 | CT_ITS ---
INDICATION: polytrauma EXAMINATION: CT Spine Cervical W/O Contrast Injection TECHNIQUE: Helically acquired images were obtained of the cervical spine. 2D reformatted images were reviewed. A radiation dose optimization technique was used for this scan. IV Contrast dosage and agent: None. COMPARISON: None. FINDINGS: VERTEBRAE: No fracture or traumatic subluxation. No suspicious osseous lesion identified. Vertebral body heights are preserved. Slight reversal of cervical lordosis likely chronic and/or positional in nature. Otherwise, adequate alignment of spine. DISCS and SPINAL CANAL: Degenerative disc space narrowing and mild endplate spurring C4-T2. Multilevel facet arthropathy also noted. No significant spinal canal stenosis. NECK SOFT TISSUES: No prevertebral soft tissue swelling. No other acute findings. LUNG APICES: No acute findings. CT/Spine Cervical without Contras IMPRESSION: Multilevel spondylosis but no evidence of acute cervical spinal injury. Electronically Signed: Tapan Boyd MD at 0:06 EDT ,
--- NOTE | 2022-09-25 22:46 | EDS_ITS ---
HPI HPI - Fall History of Present Illness Chief Complaint: Fall Informant: patient and family Narrative Narrative: Presents by private vehicle with daughter and son-in-law mechanical fall prior to arrival. Patient making her bed when she stumbled hitting her head. She is on warfarin for history of paroxysmal A-fib. Reports headache. Left shoulder pain. Denies chest or back pain. There is no dizziness or prodromal chest pains or shortness of breath prior to the fall. Denies lower extremity pain. She does ambulate with a cane if needed. Denies nausea or vomiting. 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 Paroxysmal 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 Secondary pulmonary arterial hypertension Venous insufficiency (chronic) (peripheral) Home Medications simvastatin 20 mg tablet 20 mg PO QHS #90 tabs 01/24/19 [Rx Last Taken Unknown] multivitamin with folic acid 400 mcg tablet 1 tab PO DAILY 07/14/20 [History Last Taken Unknown] metoprolol tartrate 50 mg tablet 50 mg PO BID #180 tabs 09/02/21 [Rx Last Taken Unknown] amlodipine 2.5 mg tablet 2.5 mg PO BID #180 tabs 10/12/21 [Rx Last Taken Unknown] lisinopril 40 mg tablet 40 mg PO DAILY #90 tabs 10/12/21 [Rx Last Taken Unknown] warfarin 2 mg tablet 2 mg PO .COMPLEX #180 tabs 04/14/22 [Rx Last Taken Unknown] Allergy/AdvReac Type Severity Reaction Status Date / Time atorvastatin [From Lipitor] AdvReac Severe Myalgias Verified 09/25/22 22:25 Family History Brother CAD (coronary artery disease) CABG in his 60's Surgical History History of bilateral hip replacements History of cardioversion (09/17/15) History of tonsillectomy Social History Smoking Status: Never smoker alcohol intake: never substance use type: does not use caffeine: Yes Type: coffee Number of servings: 2 ROS ROS ED Constitutional Constitutional ED: Denies chills, fever(s) or sweats Eyes Eyes: Denies change in vision ENT ENT ED: Denies dysphagia or sore throat Cardiovascular Cardiovascular: Denies chest pain, leg edema, palpitations or racing heartbeat Respiratory/Chest Respiratory/Chest: Denies cough, dyspnea or dyspnea on exertion Gastrointestinal Gastrointestinal: Denies abdominal pain, diarrhea, nausea or vomiting Genitourinary Genitourinary ED: Denies dysuria, hematuria or urinary frequency Musculoskeletal Musculoskeletal: Reports extremity pain; Denies back pain or neck pain Integumentary Denies rash or wounds Neurologic Neurologic: Reports headache(s); Denies paresthesias or weakness EXAM Physical Exam Const Vital Signs: 09/25/22 22:22 09/25/22 22:33 09/26/22 00:23 Temperature 97.8 F Temperature Source Temporal Pulse Rate 79 58 L Respiratory Rate 18 16 Respiratory Effort Normal Non-Labored Respiratory Depth Normal Respiratory Pattern Normal Blood Pressure 149/76 H 146/67 H Blood Pressure Mean 100 93 Pulse Ox 100 98 Oxygen Delivery Method Room Air Room Air Room Air Positive well nourished and well developed Constitutional Narrative: GCS 15. General Appearance ED: well developed and NAD HEENT Reports moist mucous membranes HEENT Narrative: Left frontal scalp abrasion no active bleeding. No hemotympanums. normocephalic Eyes PERRL, EOMs intact bilaterally and conjunctivae normal General Eye ED: Yes normal appearance of both eyes Neck full ROM, no lymphadenopathy and supple Neck Narrative: No step-offs. General: Negative for tenderness Chest Wall inspection of chest normal and palpation of chest normal Chest Narrative: No chest wall. Chest: Negative for tenderness Resp normal respiratory effort and normal air movement Effort and Inspection: symmetric chest movement; Negative for respiratory distress Cardio regular rate, regular rhythm and no murmurs Peripheral Pulses: pulses 2+ throughout GI normal to inspection, nondistended, normoactive bowel sounds and non-tender Palpation: Negative for guarding or rebound tenderness present Back/Spine no CVA tenderness and no thoracic nor lumbar tenderness Back/Spine Narrative: No ecchymosis, no step-offs. Extremity Extremity Narrative: Lower extremities: Negative logroll. Nontender. Pulse intact distally. Right upper extremity: Full range of motion without tenderness. No deformities. Distal pulses intact. Left upper extremity: No clavicle tenderness. There is mild tenderness proximal humerus with no deformities. Patient able to actively move without major issues. No elbow tenderness. Skin intact. Neuro vas intact distally. General Extremety ED: Negative for edema or tenderness General Extremity: Negative for edema Neuro oriented x3, CN's II-XII intact bilaterally and no sensory deficits noted Sensorium / Orientation: awake and alert Skin Skin Narrative: The above MDM MDM MDM Narrative Medical decision making narrative: Interventions / MDM: Differential diagnosis: Head injury, shoulder contusion Diagnosis considered but do not suspect: Intracranial hemorrhage however CT negative. Shoulder fracture however x-ray negative. My EKG interpretation: N/A Imaging independently reviewed and interpreted by myself: CT brain and cervical spine: No intracranial process. No cervical spine fracture. Degenerative changes noted. Left shoulder x-ray 2 views: No fracture or dislocation. This was also read by radiology. External documents reviewed: N/A Test considered but not ordered:N/A ED course: Patient head injury scalp abrasion on warfarin. Trauma scans head and neck obtained. Tetanus updated. Proximal shoulder pain on exam, x-ray also ordered. Re-evaluation: stable, INR returned at 2.0 therapeutic. Trauma scans were negative. X-ray shoulder also negative. Patient and family reassured. Wound care discussed with the abrasion. Outpatient follow-up. All questions were answered. Disposition discussed with patient/family/significant other: Patient and family Case discussed with consulting clinician: N/A This note was generated with [employer] dictation software. It may contain incorrect words, spelling, and punctuation that were not noted in checking the note before signing. Lab Data Labs: Laboratory Results - last 24 hr 09/25/22 23:10 PT 23.0 H INR 2.0 Radiography Diagnostic Testing: Clinical Impression(s) from Imaging Studies Brain CT 09/25/22 22:45 IMPRESSION: 1. Left frontoparietal scalp injury with no calvarial fracture or acute intracranial abnormality. 2. Stable small right frontotemporal partially calcified extra-axial, intracranial lesion. Likely small, chronic meningioma. 3. Brain atrophy with chronic ischemic changes. Electronically Signed: Tapan Boyd MD at 0:02 EDT , Cervical Spine CT 09/25/22 22:45 IMPRESSION: Multilevel spondylosis but no evidence of acute cervical spinal injury. Electronically Signed: Tapna Boyd MD at 0:06 EDT , Shoulder X-Ray 09/25/22 23:35 IMPRESSION: Acromioclavicular osteoarthrosis but no evidence of acute osseous injury. 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COMPLEX Qty: 180 3RF Protocol: Dose Management Condition: Monday Dose/Route: 3 mg Instruction: 1.5 x 2 mg tablets Condition: Monday Dose/Route: 2 mg Instruction: 1 x 2 mg tablet Condition: Monday Dose/Route: 2 mg Instruction: 1 x 2 mg tablet Condition: Monday Dose/Route: 2 mg Instruction: 1 x 2 mg tablet Condition: Dose/Route: 2 mg Instruction: 1 x 2 mg tablet Condition: Monday Dose/Route: 3 mg Instruction: 1.5 x 2 mg tablets Condition: Monday Dose/Route: 3 mg Instruction: 1.5 x 2 mg tablets Protocol Text: Adjustment Start Date: Monday08/31/22 INR Value: 2.3 INR Date: 08/31/22 Recheck Date: 09/28/22 Rx Instructions: 2 mg PO every day except 3 mg on Monday; or as directed: dose changes periodically Primary Care Provider: Deon Hamm Chi Referrals: Deon Hamm Chi, MD [Primary Care Provider] - 1 Week Activity Restrictions/Additional Instructions: INR [address] brain and cervical spine negative. Left shoulder x-ray negative. May use Tylenol 1 g every 6 hours as needed. Follow-up with your doctor. Disposition Disposition: Home, Self Care Discharge Date/Time: 09/26/22 00:48
--- NOTE | 2022-09-25 23:35 | RAD_ITS ---
INDICATION: injury EXAMINATION/TECHNIQUE: X-RAY - LEFT XR Shoulder Min 2 Views: AP and scapular Y views COMPARISON: None. FINDINGS: SOFT TISSUES: No significant soft tissue swelling. No radiopaque foreign body detected. BONES/JOINTS: No acute fracture or subluxation. Normal alignment. Acromioclavicular joint space narrowing. No suspicious osseous lesion observed. RAD/Shoulder min 2 Views IMPRESSION: Acromioclavicular osteoarthrosis but no evidence of acute osseous injury. Electronically Signed: Tapan Boyd MD at 0:07 EDT ,
[2022-09-26] MEDS: Diphth,Pertuss(Acell),Tet Vac 0.5 ML Vial IM (00:16)
[2022-09-26 00:23] VITALS: BP 146/67; PULSE 58; RESP 16; O2SAT 98
== END 2022-09-26 00:48 | disposition home or self-care (01) ==
PROVIDERS: Emergency Provider Emergency Medicine; PCP Family Medicine Geriatric Medicine; Visit Provider Emergency Medicine
DX: S40.012A Contusion of left shoulder, initial encounter (principal); I48.0 Paroxysmal 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; S00.01XA Abrasion of scalp, initial encounter; Z79.01 Long term (current) use of anticoagulants; E78.5 Hyperlipidemia, unspecified; I10 Essential (primary) hypertension; Z79.899 Other long term (current) drug therapy; Z86.73 Personal history of transient ischemic attack (TIA), and cerebral infarction without residual deficits; Z96.643 Presence of artificial hip joint, bilateral; Z23 Encounter for immunization; S09.8XXA Other specified injuries of head, initial encounter; W01.10XA Fall on same level from slipping, tripping and stumbling with subsequent striking against unspecified object, initial encounter; Y93.89 Activity, other specified
CPT/HCPCS: 70450; 72125; 73030; 85610; 90715; 99283; A4216

== ENCOUNTER → 2022-10-05 | Outpatient (CLI) | payer MEDICARE, OTHER, SELFPAY ==
[2022-10-05 12:12] LABS: Prothrombin Time (Protime)PT. 22.8 SECONDS (11.7-14.9)
== END | disposition home or self-care (01) ==
LOC: LAB 08:33
PROVIDERS: PCP Family Medicine Geriatric Medicine; Referring Provider Internal Medicine Cardiovascular Disease; Visit Provider Internal Medicine Cardiovascular Disease
DX: I48.0 Paroxysmal 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 (principal); Z79.01 Long term (current) use of anticoagulants
CPT/HCPCS: 36415; 85610

== ENCOUNTER → 2022-11-02 | Outpatient (CLI) | payer MEDICARE, OTHER, SELFPAY ==
[2022-11-02 11:06] LABS: International Normalized Ratio 2.4; Prothrombin Time (Protime)PT. 26.1 SECONDS (11.7-14.9)
== END | disposition home or self-care (01) ==
LOC: LAB 09:32
PROVIDERS: PCP Family Medicine Geriatric Medicine; Visit Provider Internal Medicine Cardiovascular Disease
DX: I48.0 Paroxysmal 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 (principal); Z79.01 Long term (current) use of anticoagulants
CPT/HCPCS: 36415; 85610

== ENCOUNTER → 2022-12-01 | Outpatient (CLI) | payer MEDICARE, OTHER, SELFPAY ==
[2022-12-01 10:57] LABS: AST(SGOT) 26 U/L (15-37); Alanine Aminotransfer ALT/SGPT 30 U/L (13-56); Albumin, Serum 3.7 g/dL (3.2-5.0); Alkaline Phosphatase 97 U/L (45-117); Bilirubin, Direct 0.24 mg/dL (0.00-0.30); Cholesterol 161 mg/dL (200); Globulin 3.8 g/dL (2.2-4.2); High Density Lipoprotein 81 mg/dL; Protein, Total 7.5 g/dL (6.4-8.2); Triglycerides 100 mg/dL; Very Low Density Lipoprotein 20 mg/dL (5-40)
[2022-12-01 10:59] LABS: Prothrombin Time (Protime)PT. 22.8 SECONDS (11.7-14.9)
== END | disposition home or self-care (01) ==
LOC: LAB 08:29
PROVIDERS: PCP Family Medicine Geriatric Medicine; Referring Provider Internal Medicine Cardiovascular Disease; Visit Provider Internal Medicine Cardiovascular Disease
DX: I48.0 Paroxysmal 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 (principal); Z79.01 Long term (current) use of anticoagulants; E78.00 Pure hypercholesterolemia, unspecified
CPT/HCPCS: 36415; 80061; 80076; 85610

== ENCOUNTER 2022-12-15 01:42 | Emergency (ER) | payer MEDICARE, OTHER, SELFPAY ==
[2022-12-15] VITALS (9 sets, daily range): BP systolic 89–174; BP diastolic 60–95; PULSE 63–71; RESP 15–24; TEMP 36.5–36.6; O2SAT 95–100; BMI 24.3
--- NOTE | 2022-12-15 02:02 | RAD_ITS ---
STUDY: X-RAY - RIGHT WRIST REASON FOR EXAM: Female, 87 years old. pain TECHNIQUE: 3 view(s) of the wrist were obtained. COMPARISON: None. FINDINGS: Diffuse osteopenia. There is a displaced fracture of the distal radius at the diaphyseal metaphyseal junction. The radiocarpal alignment is preserved. Suboptimally seen distal ulna with fracture of the styloid process not excluded. Anatomical radiocarpal articulation. Displacement of the carpus and distal radius in relation to the ulna with corresponding dislocation. Diffuse osteopenia. Degenerative arthrosis of the scaphotrapezium trapezoid joint. Remainder of the carpal joints are normal. Normal carpometacarpal articulation of the thumb. Normal second through fifth carpometacarpal articulations. Normal visualized metacarpal bones. Soft tissue swelling at the wrist. Peripheral arterial disease. RAD/Wrist min 3 Views IMPRESSION: Diffuse osteopenia with transverse a displaced fracture of the distal radius at the diaphyseal metaphyseal junction with question articular component through the distal radius. The radiocarpal articulation remains anatomical and overall posterior relation in the relation to the ulna and radial shaft. Cannot exclude avulsion fracture of the ulnar styloid process. Electronically Signed: Brandee Ivey MD at 2:56 EDT ,
--- NOTE | 2022-12-15 02:02 | RAD_ITS ---
STUDY: X-RAY - RIGHT TIBIA AND FIBULA REASON FOR EXAM: Female, 87 years old. pain TECHNIQUE: 3 view(s) of the tibia and fibula were obtained. COMPARISON: None. FINDINGS: There is demineralization of the tibia. There is demineralization of the fibula. There is no demonstrated acute fracture. Diffuse soft tissue swelling through the calf more so medially. RAD/Tibia & Fibula 2 Views IMPRESSION: Soft tissue swelling as described. No acute fracture or subluxation. Possible osteopenia. Electronically Signed: Brandee Ivey MD at 2:54 EDT ,
--- NOTE | 2022-12-15 02:02 | RAD_ITS ---
STUDY: X-RAY - RIGHT ELBOW REASON FOR EXAM: Female, 87 years old. pain TECHNIQUE: 3 view(s) of the elbow. COMPARISON: None. FINDINGS: Normal visualized humerus, radius and ulna. Normal radiocapitellar and ulnotrochlear articulations. Significant soft tissue swelling over the posterior aspect of the distal humerus. RAD/Elbow min 3 Views IMPRESSION: Soft tissue swelling over the posterior aspect of the distal humerus otherwise no acute fracture or subluxation seen. Electronically Signed: Brandee Ivey MD at 2:53 EDT ,
[2022-12-15] MEDS: Ondansetron 4 MG/2 ML Vial IV (02:09)
[2022-12-15] MEDS: fentaNYL 100 MCG/2 ML Ampul 50 MCG IV (02:10)
--- NOTE | 2022-12-15 02:27 | RAD_ITS ---
STUDY: X-RAY CHEST REASON FOR EXAM: Female, 87 years old. fall TECHNIQUE: Single AP portable view of the chest. COMPARISON: 09/08/2015. FINDINGS: The lungs are clear and expanded. There is no demonstrated pleural abnormality. There is borderline cardiomegaly. Normal mediastinum and maricruz. Normal visualized pulmonary arteries. There is atherosclerotic calcification of the aortic arch with tortuosity. There are diffuse degenerative changes of the visualized thoracic spine. There is degenerative osteoarthritis of the bilateral shoulders. There is no demonstrated abnormality of the visualized soft tissue structures of the upper abdomen. RAD/Chest 1 View (Portable) IMPRESSION: No acute cardiopulmonary disease. Electronically Signed: Brandee Ivey MD at 2:52 EDT ,
--- NOTE | 2022-12-15 03:18 | CT_ITS ---
EXAM: CT HEAD WITHOUT INTRAVENOUS CONTRAST CLINICAL INDICATION: head injury TECHNIQUE: Multiple axial images were obtained of the head without intravenous contrast. This CT exam was performed using one or more of the following dose reduction techniques: automated exposure control, adjustment of the mA and/or kV according to patient size, and/or use of iterative reconstruction technique. RADIATION DOSE: CTDIvol = 44.99 mGy, DLP = 762.36 mGy-cm COMPARISON: Head CT 09/25/2022 FINDINGS: BRAIN AND EXTRA-AXIAL SPACES: Stable chronic partially calcified meningioma in the right anterior cranial fossa. Diffuse cerebral volume loss. Periventricular small vessel ischemic changes. No intra- or extra-axial hemorrhage. Posterior fossa structures are unremarkable. No hydrocephalus. Basal cisterns are patent. BONES/JOINTS: Unremarkable. No discrete lytic or blastic abnormalities. VASCULATURE: Vascular calcifications. SINUSES: Unremarkable as visualized. Clear. MASTOID AIR CELLS: Unremarkable. Clear. ORBITS: Visualized globes, extraocular muscles, optic nerves and retrobulbar fat appear unremarkable. CT/Brain/Head without Contrast IMPRESSION: 1. No acute intracranial abnormalities. 2. Age-related changes. Electronically Signed: Curry Ruiz MD at 4:52 EDT ,
--- NOTE | 2022-12-15 03:18 | RAD_ITS ---
EXAM: XR PELVIS, 1 OR 2 VIEWS CLINICAL INDICATION: fall TECHNIQUE: Frontal view of the pelvis. COMPARISON: No relevant prior studies available. FINDINGS: BONES/JOINTS: Bilateral total hip arthroplasties. No displaced fracture. No destructive or sclerotic lesions. Note that overlapping bowel shadows may however obscure fine detail. Sacroiliac joints are unremarkable. No widening of the pubic symphysis. SOFT TISSUES: Unremarkable. No soft tissue swelling or gas. RAD/Pelvis 1 or 2 Views IMPRESSION: No acute findings in the pelvis. Bilateral total hip arthroplasties. No evidence of hardware complication. Electronically Signed: Curry Ruiz MD at 4:30 EDT ,
[2022-12-15 03:30] LABS: Absolute Lymphocyte Count 0.49 X10^3/uL (0.83-4.51); Absolute Neutrophil Count 6.6 X10^3/uL (2.0-7.7); Basophil# 0.04 X10^3/uL; Basophil% 0.5 % (0-1); Eosinophil# 0.11 X10^3/uL; Eosinophils% 1.4 % (0-5); Hematocrit 37.5 % (37-47); Hemoglobin 12.1 g/dL (12.0-15.0); Lymphocyte # 0.49 X10^3/ul (0.83-4.51); Lymphocyte % 6.4 % (19-41); Mean Corp Hgb Conc 32.3 g/dL (32-36); Mean Corpuscular Hgb 30.7 pg (27.0-32.0); Mean Corpuscular Volume 95.2 fL (81-99); Mean Platelet Vol. 10.3 fl (6.2-12.0); Monocyte# 0.48 X10^3/uL; Monocyte% 6.2 % (0-10); NRBC Flagged by Analyzer 0 % (0-5); Neutrophil # 6.56 X10^3/uL (2.7-7.7); Neutrophil % 85.1 % (47-70); POSITIVE DIFFERENTIAL YES; Platelet Count 186 K/mm3 (150-450); RBC Distribution Width CV 12.7 % (11.6-14.6); RBC Distribution Width SD 44.3 fl (35.1-43.9); Red Blood Count 3.94 M/mm3 (4.2-5.4); White Blood Count 7.7 K/mm3 (4.4-11.0)
[2022-12-15] MEDS: Diphth,Pertuss(Acell),Tet Vac 0.5 ML Vial IM (03:34)
[2022-12-15 03:39] LABS: International Normalized Ratio 2.1; Partial Thromboplast Time 53.9 Seconds (24.1-36.2); Prothrombin Time (Protime)PT. 23.8 SECONDS (11.7-14.9)
[2022-12-15 03:44] LABS: Anion Gap 2 (5-15); BUN 16 mg/dL (7-18); BUN/Creat Ratio 19.4 RATIO (10-20); Calcium,Total 9.3 mg/dL (8.5-10.1); Chloride 107 mmol/L (98-107); Creatinine, Serum 0.83 mg/dL (0.55-1.02); EST Glomerular Filtration Rate 69 mL/min (>60); Est Glom Filt Rate - Afr Amer 84 mL/min (>60); Estimated Creatinine Clearance 37.06 ml/min; Glucose 119 mg/dL (74-106); Sodium Level 140 mmol/L (136-145)
[2022-12-15] MEDS: Midazolam 5 MG/ML Syringe IV (03:48)
[2022-12-15 03:52] LABS: Differential Indicated SCAN CRITERIA MET
--- NOTE | 2022-12-15 04:02 | CT_ITS ---
EXAM: CT CERVICAL SPINE WITHOUT INTRAVENOUS CONTRAST CLINICAL INDICATION: fall TECHNIQUE: Helically acquired images were obtained of the cervical spine without intravenous contrast. 2D reformatted images were reviewed. This CT exam was performed using one or more of the following dose reduction techniques: automated exposure control, adjustment of the mA and/or kV according to patient size, and/or use of iterative reconstruction technique. RADIATION DOSE: CTDIvol = 13.66 mGy, DLP = 275.53 mGy-cm COMPARISON: Cervical spine CT 09/25/2022 FINDINGS: VERTEBRAE: Unremarkable. No fracture. No traumatic subluxation. No discrete lytic or blastic abnormality. Normal alignment. Normal craniocervical junction and cervicothoracic junction. DISCS/SPINAL CANAL/NEURAL FORAMINA: Degenerative changes of the intervertebral discs. No critical stenosis. SOFT TISSUES: Unremarkable. No prevertebral soft tissue swelling. VASCULATURE: Carotid artery calcifications. LYMPH NODES: Unremarkable. No cervical adenopathy. LUNG APICES: Unremarkable as visualized. Clear. CT/Spine Cervical without Contras IMPRESSION: 1. No acute injuries identified involving the cervical spine. 2. Degenerative changes. Electronically Signed: Curry Ruiz MD at 4:58 EDT ,
[2022-12-15] MEDS: Cefazolin 2 GM in 0.9% Normal Saline (100mL Bag) 100 ML IV (04:14)
--- NOTE | 2022-12-15 04:21 | RAD_ITS ---
EXAM: XR RIGHT WRIST COMPLETE, 3 OR MORE VIEWS CLINICAL INDICATION: post reduction TECHNIQUE: Frontal, lateral and oblique views of the right wrist. COMPARISON: Wrist from same date FINDINGS: BONES/JOINTS: Reduction and casting of the previously described distal radius fracture. There is a small ulnar styloid fracture as well. Improved alignment, with some persistent impaction of the radial fracture fragments. No sclerotic or destructive changes observed. SOFT TISSUES: Soft tissue swelling. No radiopaque foreign body. RAD/Wrist min 3 Views IMPRESSION: Reduction and casting of the previously described distal radius fracture. There is a small ulnar styloid fracture as well. Improved alignment, with some persistent impaction of the radial fracture fragments. Electronically Signed: Curry Ruiz MD at 4:32 EDT ,
--- NOTE | 2022-12-15 04:36 | EDS_ITS ---
HPI History of Present Illness Chief Complaint: Fall Informant: patient and family Narrative Narrative: Patient is an 87-year-old female with past medical history of hypertension hyperlipidemia previous CVA and paroxysmal 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 currently on Coumadin. Patient lives at home with family. Patient and family state that the patient got up to use the restroom and when she was walking to the restroom lost her balance and fell. Family states that they heard the thud and the patient states that she did not have any loss of consciousness. Family reports that they noted a obvious deformity to the patient's right wrist and secondary to the trauma EMS was called to bring her in for evaluation. The patient reports pain into her right forearm and her right rodrigez. Family states she is acting at her baseline mental status. 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 Paroxysmal 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 Secondary pulmonary arterial hypertension Venous insufficiency (chronic) (peripheral) Home Medications multivitamin with folic acid 400 mcg tablet 1 tab PO DAILY 07/14/20 [History Last Taken Unknown] warfarin 2 mg tablet 2 mg PO .COMPLEX #180 tabs 04/14/22 [Rx Last Taken Unknown] amlodipine 2.5 mg tablet 2.5 mg PO BID #180 tabs 10/18/22 [Rx Last Taken Unknown] lisinopril 40 mg tablet 40 mg PO DAILY #90 tabs 10/18/22 [Rx Last Taken Unknown] metoprolol tartrate 50 mg tablet 50 mg PO BID #180 tabs 10/18/22 [Rx Last Taken Unknown] simvastatin 20 mg tablet 20 mg PO QHS #90 tabs 10/18/22 [Rx Last Taken Unknown] Allergy/AdvReac Type Severity Reaction Status Date / Time atorvastatin [From Lipitor] AdvReac Severe Myalgias Verified 12/15/22 01:44 Family History (Updated 12/15/22 @ 01:[address] Saranya Quintana MD) Brother CAD (coronary artery disease) CABG in his 60's Heart disease Hypertension Mother No problems noted. Father No problems noted. Surgical History History of bilateral hip replacements History of cardioversion (09/17/15) History of tonsillectomy Social History (Updated 12/15/22 @ 01:[address] Saranya Quintana MD) household members: spouse Smoking Status: Never smoker alcohol intake: never substance use type: does not use caffeine: Yes Type: coffee Number of servings: 2 ROS ROS ED Constitutional Constitutional ED: Denies chills or fever(s) Eyes Eyes: Denies blurry vision or change in vision ENT ENT ED: Denies sore throat Cardiovascular Cardiovascular: Denies chest pain, palpitations or racing heartbeat Respiratory/Chest Respiratory/Chest: Denies cough or dyspnea Gastrointestinal Gastrointestinal: Denies abdominal pain, diarrhea, nausea or vomiting Genitourinary Genitourinary ED: Denies dysuria Musculoskeletal Musculoskeletal: Reports other Details: Positive right wrist and forearm pain as well as right rodrigez pain ; Denies back pain or neck pain Integumentary Denies rash Neurologic Neurologic: Denies headache(s) or paresthesias Hematologic/Lymphatic Hematologic/Lymphatic: Reports easy bleeding and easy bruising EXAM Physical Exam Const Vital Signs: 12/15/22 01:43 12/15/22 01:43 12/15/22 03:42 Temperature 97.7 F L Temperature Source Temporal Pulse Rate 63 Pulse Rate [1 (Initial Baseline)] 64 Pulse Rate [2] 70 Pulse Rate [3] 64 Respiratory Rate 17 Respiratory Rate [1 (Initial Baseline)] 15 Respiratory Rate [2] 24 H Respiratory Rate [3] 20 H Respiratory Effort Normal Non-Labored Respiratory Depth Normal Respiratory Pattern Normal Blood Pressure 174/70 H Blood Pressure [1 (Initial Baseline)] 157/60 H Blood Pressure [2] 126/73 H Blood Pressure [3] 89/69 L Blood Pressure Mean 104 Pulse Ox 98 Oxygen Delivery Method Room Air Room Air Oxygen Delivery Method [1 (Initial Baseline)] Nasal Cannula Oxygen Delivery Method [2] Nasal Cannula Oxygen Delivery Method [3] Nasal Cannula Oxygen Flow Rate (L/min) Oxygen Flow Rate (L/min) [1 (Initial Baseline)] 2 Oxygen Flow Rate (L/min) [2] 2 Oxygen Flow Rate (L/min) [3] 2 12/15/22 03:55 12/15/22 04:00 12/15/22 04:05 Temperature Temperature Source Pulse Rate 71 66 63 Pulse Rate [1 (Initial Baseline)] Pulse Rate [2] Pulse Rate [3] Respiratory Rate 17 17 17 Respiratory Rate [1 (Initial Baseline)] Respiratory Rate [2] Respiratory Rate [3] Respiratory Effort Respiratory Depth Respiratory Pattern Blood Pressure 125/64 H 136/66 H 115/95 H Blood Pressure [1 (Initial Baseline)] Blood Pressure [2] Blood Pressure [3] Blood Pressure Mean Pulse Ox 99 99 95 Oxygen Delivery Method Nasal Cannula Room Air Room Air Oxygen Delivery Method [1 (Initial Baseline)] Oxygen Delivery Method [2] Oxygen Delivery Method [3] Oxygen Flow Rate (L/min) 1 Oxygen Flow Rate (L/min) [1 (Initial Baseline)] Oxygen Flow Rate (L/min) [2] Oxygen Flow Rate (L/min) [3] 12/15/22 04:10 Temperature Temperature Source Pulse Rate 69 Pulse Rate [1 (Initial Baseline)] Pulse Rate [2] Pulse Rate [3] Respiratory Rate 16 Respiratory Rate [1 (Initial Baseline)] Respiratory Rate [2] Respiratory Rate [3] Respiratory Effort Respiratory Depth Respiratory Pattern Blood Pressure 119/73 Blood Pressure [1 (Initial Baseline)] Blood Pressure [2] Blood Pressure [3] Blood Pressure Mean Pulse Ox 98 Oxygen Delivery Method Room Air Oxygen Delivery Method [1 (Initial Baseline)] Oxygen Delivery Method [2] Oxygen Delivery Method [3] Oxygen Flow Rate (L/min) Oxygen Flow Rate (L/min) [1 (Initial Baseline)] Oxygen Flow Rate (L/min) [2] Oxygen Flow Rate (L/min) [3] Positive well nourished and well developed General Appearance ED: well developed HEENT HEENT Narrative: Normocephalic/atraumatic No signs of depressed or basilar skull fracture No septal hematoma Eyes PERRL and EOMs intact bilaterally Eyes Narrative: No hyphema General Eye ED: Negative for scleral icterus Neck supple Neck Narrative: No bony deformity or step-off of the cervical spine no midline pain on palpation Chest Wall palpation of chest normal Chest Narrative: No bony deformity or crepitance noted Resp normal respiratory effort and clear to auscultation bilaterally Cardio regular rate and regular rhythm Rate: other Other Details: No murmurs rubs or gallops noted GI normal to inspection, nondistended, normoactive bowel sounds, non-tender, non- distended and no masses GI Narrative: No voluntary guarding or rigidity. No pulsatile mass or fluid wave Auscultation: normoactive bowel sounds Palpation: soft Extremity Extremity Narrative: Pelvis is stable there is no shortening or external rotation of either lower extremity There is pitting edema to the bilateral lower extremities slightly greater on the right Patient has pain with palpation over top of the mid tibia without bony deformity on the right as well Patient has an obvious deformity of the distal right wrist/radius and ulna with apparent open fracture along the volar aspect near the distal radius with minimal ooze of blood. Radial pulse is still palpable and graded as a 2 out of 4. Capillary refill is less than 3 seconds. Patient reports sensation to the fingers is normal. Patient is able to still move her fingers. There is pain on palpation of the proximal to middle third of the right forearm without obvious bony deformity. There is no obvious bony deformity or joint effusion at the elbow or shoulder joint negative sulcus sign present. Neuro oriented x3 and CN's II-XII intact bilaterally Sensorium / Orientation: alert Psych mental status grossly normal Skin Skin Narrative: Laceration to the volar aspect of the distal right wrist near the distal radius consistent with open fracture and minimal ooze of blood and no foreign body MDM MDM MDM Narrative Medical decision making narrative: Patient presented to the ER awake and alert at baseline mental status. She reported mechanical fall and therefore there is no need for cardiac or syncope work-up. She had an obvious deformity of her distal right wrist with tear in the soft tissue concerning for open fracture. She denies striking her head and there are no signs of head injury but as she is on Coumadin there is concern for rupture of bridging vessels. Therefore at this time x-rays of the elbow wrist and rodrigez will be obtained as well as head CT. Imaging revealed the distal radius and ulnar fracture with dislocation/displacement and the other imaging showed no signs of acute trauma. The patient was given a Tdap and started on Ancef secondary to the open fracture. The wound was also Copiously irrigated. The case was discussed with orthopedic surgery on-call Dr. Henriquez and secondary to the patient falling with open fracture he recommends transfer to a tertiary center with hand surgery. Family request [facility] and therefore they were contacted and they do accept the patient as a trauma transfer. The patient underwent conscious sedation with closed reduction as documented below and was splinted prior to transport. The patient was given a total of 20 mg of propofol and 2.5 mg of Versed for sedation. Manual traction was applied and there was improvement in the anatomical alignment of the fracture fragments. The area was then splinted in a sugar-tong Ortho-Glass splint for stabilization. Following application of the splint patient's capillary refill remains less than 3 seconds. Total time of conscious sedation was approximately 10 minutes. Patient tolerated the procedure well without complication History & Record Review Discussion w/independent historian: Patient and Family Lab Data Attestation: I reviewed the patient's lab results. Labs: Laboratory Results - last 24 hr 12/15/22 03:25 WBC 7.7 RBC 3.94 L Hgb 12.1 Hct 37.5 MCV 95.2 MCH 30.7 MCHC 32.3 RDW Std Deviation 44.3 H RDW Coeff of Isis 12.7 Plt Count 186 MPV 10.3 Immature Gran % (Auto) 0.400 Neut % (Auto) 85.1 H Lymph % (Auto) 6.4 L [place] % (Auto) 6.2 Eos % (Auto) 1.4 Baso % (Auto) 0.5 Absolute Neuts (auto) 6.6 Absolute Lymphs (auto) 0.49 L Nucleated RBC % 0 PT 23.8 H INR 2.1 APTT 53.9 H Sodium 140 Potassium 4.0 Chloride 107 Carbon Dioxide 31.0 Anion Gap 2 L BUN 16 Creatinine 0.83 Estim Creat Clear Calc 37.06 Est GFR (MDRD) Af Amer 84 Est GFR (MDRD) Non-Af 69 BUN/Creatinine Ratio 19.4 Glucose 119 H Calcium 9.3 Radiography Diagnostic Testing: Clinical Impression(s) from Imaging Studies Elbow X-Ray 12/15/22 02:02 IMPRESSION: Soft tissue swelling over the posterior aspect of the distal humerus otherwise no acute fracture or subluxation seen. Electronically Signed: Brandee Ivey MD at 2:53 EDT , Tibia/Fibula X-Ray 12/15/22 02:02 IMPRESSION: Soft tissue swelling as described. No acute fracture or subluxation. Possible osteopenia. Electronically Signed: Brandee Ivey MD at 2:54 EDT , Wrist X-Ray 12/15/22 02:02 IMPRESSION: Diffuse osteopenia with transverse a displaced fracture of the distal radius at the diaphyseal metaphyseal junction with question articular component through the distal radius. The radiocarpal articulation remains anatomical and overall posterior relation in the relation to the ulna and radial shaft. Cannot exclude avulsion fracture of the ulnar styloid process. Electronically Signed: Brandee Ivey MD at 2:56 EDT Reading Location ID and State: [facility] [employer] , Service support , Chest X-Ray 12/15/22 02:27 IMPRESSION: No acute cardiopulmonary disease. Electronically Signed: Brandee Ivey MD at 2:52 EDT Reading Location ID and State: [facility] [employer] , Service support , Pelvis X-Ray 12/15/22 03:18 IMPRESSION: No acute findings in the pelvis. Bilateral total hip arthroplasties. No evidence of hardware complication. Electronically Signed: Curry Ruiz MD at 4:30 EDT Reading Location ID and State: [email or web address] [employer] , Service support , Wrist X-Ray 12/15/22 04:21 IMPRESSION: Reduction and casting of the previously described distal radius fracture. There is a small ulnar styloid fracture as well. Improved alignment, with some persistent impaction of the radial fracture fragments. Electronically Signed: Curry Ruiz MD at 4:32 EDT Reading Location ID and State: [email or web address] [employer] , Service support , X-ray of the right elbow as interpreted by the emergency medicine physician reveals no acute fracture dislocation or joint effusion X-ray of the right tibia and fibula as interpreted by the emergency medicine physician reveals no acute fracture or dislocation but mild soft tissue swelling X-ray of the pelvis as interpreted by the emergency medicine physician reveals hardware to be intact and in place without periprosthetic fracture or dislocation 1 view chest x-ray as interpreted by the emergency medicine physician reveals no acute infiltrate pneumothorax rib fracture or pleural effusion Initial 3 view wrist x-ray as interpreted by the emergency medicine physician reveals a distal radius and ulnar fracture with 100% dislocation of the carpal bones Postreduction wrist x-rays interpreted by the emergency medicine physician reveals persistent fracture with moderate improvement of the displacement/dislocation Management Discussion w/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 healthcare 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 Procedural Sedation 5: Consent Signed: Yes Any Problems With Anesthesia: No You/Your family experience fever (hyperthermia) w/anesthesia: Unknown Sedation medication: Versed Dose: 20 Route: IV Maliampati Score: Class II ASA Classification: III Discharge Plan Triage Chief Complaint: Fall ED Provider: Adolfo Veloz Dx/Rx/DC Orders Clinical Impression: Open fracture of right radius and ulna, Essential hypertension, Paroxysmal 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, 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, Accidental fall Prescriptions: No Action multivitamin with folic acid 400 mcg tablet 1 tab PO DAILY warfarin 2 mg tablet 2 mg PO .COMPLEX Qty: 180 3RF Protocol: Dose Management Condition: Monday Dose/Route: 3 mg Instruction: 1.5 x 2 mg tablets Condition: Monday Dose/Route: 2 mg Instruction: 1 x 2 mg tablet Condition: Monday Dose/Route: 2 mg Instruction: 1 x 2 mg tablet Condition: Monday Dose/Route: 2 mg Instruction: 1 x 2 mg tablet Condition: Dose/Route: 2 mg Instruction: 1 x 2 mg tablet Condition: Monday Dose/Route: 3 mg Instruction: 1.5 x 2 mg tablets Condition: Monday Dose/Route: 3 mg Instruction: 1.5 x 2 mg tablets Protocol Text: Adjustment Start Date: Monday11/02/22 INR Value: 2.4 INR Date: 11/02/22 Recheck Date: 11/30/22 Rx Instructions: 2 mg PO every day except 3 mg on Monday; or as directed: dose changes periodically amlodipine 2.5 mg tablet 2.5 mg PO BID Qty: 180 3RF metoprolol tartrate 50 mg tablet 50 mg PO BID Qty: 180 3RF lisinopril 40 mg tablet 40 mg PO DAILY Qty: 90 3RF Patient Comments: blood pressure simvastatin 20 mg tablet 20 mg PO QHS Qty: 90 3RF Primary Care Provider: Deon Hamm Chi Referrals: Deon Hamm Chi, MD [Primary Care Provider] - Disposition Disposition: Acute Care Hospital Discharge Location: [facility]
== END 2022-12-15 07:06 | disposition short-term general hospital (02) ==
PROVIDERS: Emergency Provider Emergency Medicine; PCP Family Medicine Geriatric Medicine; Visit Provider Emergency Medicine
DX: S52.501B Unspecified fracture of the lower end of right radius, initial encounter for open fracture type I or II (principal); I48.0 Paroxysmal 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; Z79.01 Long term (current) use of anticoagulants; I10 Essential (primary) hypertension; E78.5 Hyperlipidemia, unspecified; S52.201B Unspecified fracture of shaft of right ulna, initial encounter for open fracture type I or II; Z86.73 Personal history of transient ischemic attack (TIA), and cerebral infarction without residual deficits; W18.30XA Fall on same level, unspecified, initial encounter; Y93.01 Activity, walking, marching and hiking; Y92.009 Unspecified place in unspecified non-institutional (private) residence as the place of occurrence of the external cause; Z79.899 Other long term (current) drug therapy; Z96.643 Presence of artificial hip joint, bilateral; Z23 Encounter for immunization
CPT/HCPCS: 25605; 70450; 71045; 72125; 72170; 73080; 73110; 73590; 80048; 85025; 85610; 85730; 90471; 90715; 99152; J7030; A4216; J2405

== ENCOUNTER 2022-12-15 16:25 | Inpatient (IN) | payer MEDICARE, OTHER, SELFPAY ==
[2022-12-15 16:31] VITALS: BP 141/80; PULSE 102; RESP 14; TEMP 36.4; O2SAT 99; BMI 24.3
--- NOTE | 2022-12-15 17:25 | RAD_ITS ---
STUDY: X-RAY - RIGHT WRIST REASON FOR EXAM: Female, 87 years old. trauma TECHNIQUE: 3 view(s) of the wrist were obtained. COMPARISON: Earlier today FINDINGS: No change posteriorly displaced transverse fracture of the distal metaphysis of the radius with extension the radiocarpal joint consistent with a Colles'' fracture. Normal radiocarpal articulation. Normal distal radioulnar articulation. Normal carpal bones. 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 There is degenerative arthrosis of the carpometacarpal articulation of the thumb. Normal second through fifth carpometacarpal articulations. Normal visualized metacarpal bones. Plaster cast obscures soft tissue and bony detail. RAD/Wrist min 3 Views IMPRESSION: No change in the displaced Colles'' fracture. Electronically Signed: Constantino Paez MD at 18:44 EDT ,
--- NOTE | 2022-12-15 17:26 | EDS_ITS ---
HPI History of Present Illness Chief Complaint: Upper Extremity Injury Informant: patient and family Narrative Narrative: 79-year-old female presenting to the emergency department from home with her daughters. The patient lives at home with her daughter and elderly . Family notes that they have seen signs of dementia that has been progressive. He states that she is refusing to go to doctors appointments and becoming more go for phobic. Memory has become of concern as well lesser frequent falls. She reportedly fell during the middle the night sustained a fracture of the right wrist was transferred to [facility]. She had what sounds like a hematoma block and reduction was discharged home. The reason for the transfer was concern for an open fracture. He was noted to have a skin tear and she was started on antibiotics and had a tetanus update. She was to follow-up with orthopedics. Upon arriving home the patient was more agitated and remove the splint. Family states that she was using the arm complaining that it was hurting. She is on Coumadin. She had a head CT this morning that was negative. Review of the patient's medical record from her ED visit here in [place] shows the patient to have had some fentanyl and Zofran as well as propofol and Versed. Family states that her confusion seemed to worsen as the day went on. It was noted on her discharge paperwork from [facility] that she had had Keflex and lidocaine which I presume would be for a hematoma block. 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 Paroxysmal 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 Secondary pulmonary arterial hypertension Venous insufficiency (chronic) (peripheral) Home Medications multivitamin with folic acid 400 mcg tablet 1 tab PO DAILY 07/14/20 [History Last Taken Unknown] warfarin 2 mg tablet 2 mg PO .COMPLEX #180 tabs 04/14/22 [Rx Last Taken Unknown] amlodipine 2.5 mg tablet 2.5 mg PO BID #180 tabs 10/18/22 [Rx Last Taken Unknown] lisinopril 40 mg tablet 40 mg PO DAILY #90 tabs 10/18/22 [Rx Last Taken Unknown] metoprolol tartrate 50 mg tablet 50 mg PO BID #180 tabs 10/18/22 [Rx Last Taken Unknown] simvastatin 20 mg tablet 20 mg PO QHS #90 tabs 10/18/22 [Rx Last Taken Unknown] Allergy/AdvReac Type Severity Reaction Status Date / Time atorvastatin [From Lipitor] AdvReac Severe Myalgias Verified 12/15/22 16:28 Family History Brother CAD (coronary artery disease) CABG in his 60's Heart disease Hypertension Mother No problems noted. Father No problems noted. Surgical History History of bilateral hip replacements History of cardioversion (09/17/15) History of tonsillectomy Social History household members: spouse Smoking Status: Never smoker alcohol intake: never substance use type: does not use caffeine: Yes Type: coffee Number of servings: 2 ROS ROS ED Constitutional Constitutional ED: Denies chills, fever(s) or weight loss Eyes Eyes: Denies change in vision or diplopia ENT ENT ED: Denies ear pain, rhinorrhea or sore throat Cardiovascular Cardiovascular: Denies chest pain, orthopnea, palpitations or racing heartbeat Respiratory/Chest Respiratory/Chest: Denies cough, dyspnea or orthopnea Gastrointestinal Gastrointestinal: Denies abdominal pain, diarrhea, nausea or vomiting Genitourinary Genitourinary ED: Denies dysuria, hematuria or urinary frequency Musculoskeletal Musculoskeletal: Reports other Details: See history of present illness ; Denies arthralgias or myalgias Integumentary Denies abscess or rash Neurologic Neurologic: Reports other Details: Confusion Frequent falls Memory loss ; Denies headache(s) or weakness Psychiatric Psychiatric: Denies anxiety, depression, suicidal ideation or suicidal thoughts Endocrine Endocrinology: Denies polydipsia, polyphagia or polyuria Allergic/Immunologic Allergic/Immunologic ED: Denies mouth swelling, tongue swelling or urticaria EXAM Physical Exam Const Vital Signs: 12/15/22 16:31 Temperature 97.6 F L Temperature Source Temporal Pulse Rate 102 H Respiratory Rate 14 Blood Pressure 141/80 H Blood Pressure Mean 100 Pulse Ox 99 Oxygen Delivery Method Room Air Positive well nourished and well developed General Appearance ED: well developed HEENT Reports normocephalic, head/scalp atraumatic and moist mucous membranes HEENT Narrative: There are numerous sores on the scalp the patient picking. She has loss of hair. Eyes PERRL and EOMs intact bilaterally Neck full ROM, no lymphadenopathy, supple and no JVD Resp normal respiratory effort and clear to auscultation bilaterally Cardio regular rate, regular rhythm and no murmurs GI normal to inspection, nondistended, normoactive bowel sounds and non-tender Palpation: soft Back/Spine no CVA tenderness and normal ROM Extremity Extremity Narrative: Deformity to right wrist ecchymosis and swelling. The fingers are pink with less than 3-second capillary refill. She is able to wiggle the fingers. No pain with flexion extension of the fingers. There is a 2 cm skin tear on the volar medial aspect of the wrist. General Extremety ED: Negative for edema General Extremity: Negative for edema Neuro CN's II-XII intact bilaterally Sensorium / Orientation: alert, oriented to person, oriented to place and orientation impaired Motor Exam: strength 5/5 throughout Psych mental status grossly normal Mood & Affect: Negative for depressed or tearful Skin no rashes or lesions noted and no wounds MDM MDM MDM Narrative Medical decision making narrative: My independent interpretation of the chest x-ray is no acute process. My independent interpretation of the plain films of the right wrist is a displaced distal radial fracture and ulnar fracture. Repeat head CT due to change in mental status was obtained. Understanding that she did have one earlier today was still concerned that she may have a small bleed that was not seen on the initial head CT given that she is on warfarin. This also returned as no acute. Basic blood work negative. Urinalysis with no overt infection. Patient had her wound covered with bacitracin and a Telfa pad. A anterior posterior well-padded splint was placed in the position of life. Neurovascular intact pre and post application. A Rj wrap was used to wrap the splint and then I applied Coban around this is further deterrent for the patient to remove it. Family notes that she has underlying dementia and like illness. They state that today symptoms are significantly different/worse than they normally are. She has been up since around 0130 hrs. She had fentanyl Versed Zofran and propofol earlier in the day. I have concerns with her safety at home. Family does as well and I wonder if she will need to go to a rehab facility eventually. I think it would be reasonable to admit her tonight for observation and see if we can find a pain regimen that would work well with her and see if her sensorium improves with rest. Lab Data Attestation: I reviewed the patient's lab results. Discharge Plan Dx/Rx/DC Orders Clinical Impression: [facility] current use of anticoagulant, Altered mental status, Accidental fall, Open fracture of right radius and ulna Disposition Disposition: Acute Care Hospital [facility]
--- NOTE | 2022-12-15 17:37 | CT_ITS ---
STUDY: CT BRAIN WITHOUT CONTRAST REASON FOR EXAM: Female, 87 years old. confusion RADIATION DOSAGE (If Supplied By Facility): CTDIvol = ( 44.99 ) mGy, DLP = ( 796.11 ) mGycm TECHNIQUE: Transaxial CT imaging of the brain was performed without administration of intravenous contrast material. Individualized dose optimization techniques were used for this CT. COMPARISON: 12/15/2022 FINDINGS: Normal soft tissue structures. Normal calvarium. There is moderate cerebral atrophy with widening of the extra-axial spaces and ventricular dilatation. There are areas of decreased attenuation within the white matter tracts of the supratentorial brain, consistent with microvascular disease changes. Normal basal ganglia and thalami. Normal brainstem. Normal cerebellum. There is no intracranial hemorrhage. There are no findings of an acute ischemic infarction. Normal visualized paranasal sinuses. CT/Brain/Head without Contrast IMPRESSION: Chronic involutional changes of the brain. Electronically Signed: Constantino Paez MD at 18:37 EDT ,
[2022-12-15 17:46] LABS: Absolute Lymphocyte Count 0.27 X10^3/uL (0.83-4.51); Absolute Neutrophil Count 8.2 X10^3/uL (2.0-7.7); Basophil# 0.03 X10^3/uL; Basophil% 0.3 % (0-1); Eosinophil# 0.02 X10^3/uL; Eosinophils% 0.2 % (0-5); Hemoglobin 12.5 g/dL (12.0-15.0); Lymphocyte # 0.27 X10^3/ul (0.83-4.51); Lymphocyte % 2.8 % (19-41); Mean Corp Hgb Conc 32.9 g/dL (32-36); Mean Corpuscular Hgb 31.3 pg (27.0-32.0); Mean Platelet Vol. 10.4 fl (6.2-12.0); Monocyte# 0.91 X10^3/uL; Monocyte% 9.6 % (0-10); NRBC Flagged by Analyzer 0 % (0-5); Neutrophil # 8.23 X10^3/uL (2.7-7.7); Neutrophil % 86.6 % (47-70); POSITIVE DIFFERENTIAL YES; Platelet Count 210 K/mm3 (150-450); RBC Distribution Width CV 12.8 % (11.6-14.6); RBC Distribution Width SD 44.2 fl (35.1-43.9); White Blood Count 9.5 K/mm3 (4.4-11.0)
--- NOTE | 2022-12-15 17:46 | RAD_ITS ---
STUDY: X-RAY CHEST REASON FOR EXAM: Female, 87 years old. ams TECHNIQUE: Single AP portable view of the chest. COMPARISON: 12/15/2022 at 02 29 FINDINGS: The lungs are clear and expanded. Elevated right hemidiaphragm which is unchanged. There is moderate cardiac enlargement. Normal mediastinum and maricruz. Normal visualized pulmonary arteries. Normal visualized aortic arch and descending thoracic aorta. Normal visualized thoracic spine. Normal visualized ribs, clavicles, and shoulders. There is no demonstrated abnormality of the visualized soft tissue structures of the upper abdomen. RAD/Chest 1 View (Portable) IMPRESSION: No active disease. Cardiomegaly. Electronically Signed: Constantino Paez MD at 18:41 EDT ,
[2022-12-15 18:05] LABS: Differential Indicated SCAN CRITERIA MET
[2022-12-15 18:13] LABS: International Normalized Ratio 2.1; Prothrombin Time (Protime)PT. 23.5 SECONDS (11.7-14.9)
[2022-12-15 18:16] LABS: ALB/GLOB Ratio 1.1 RATIO (0.9-2.4); AST(SGOT) 23 U/L (15-37); Alanine Aminotransfer ALT/SGPT 28 U/L (13-56); Albumin, Serum 3.6 g/dL (3.2-5.0); Alkaline Phosphatase 98 U/L (45-117); Anion Gap 3 (5-15); BUN 15 mg/dL (7-18); BUN/Creat Ratio 16.5 RATIO (10-20); Calcium,Total 9.2 mg/dL (8.5-10.1); Chloride 107 mmol/L (98-107); Creatinine, Serum 0.91 mg/dL (0.55-1.02); EST Glomerular Filtration Rate 62 mL/min (>60); Est Glom Filt Rate - Afr Amer 75 mL/min (>60); Globulin 3.3 g/dL (2.2-4.2); Glucose 142 mg/dL (74-106); Potassium 3.7 mmol/L (3.5-5.1); Protein, Total 6.9 g/dL (6.4-8.2); Sodium Level 140 mmol/L (136-145)
[2022-12-15 18:32] LABS: Differential Comment SCANNED
[2022-12-15 18:43] LABS: Bacteria 0 SEEN /hpf (None Seen); Mucous, Urine 0 SEEN /hpf (<or=2+); Squamous Epithelial Cells - UA 0 SEEN /hpf (5-10)
[2022-12-15 18:44] LABS: Color, Urine Yellow (Yellow); Glucose, Dipstick Normal (Normal); Ketone-Dipstick Negative (Negative); Leukocyte Esterase-Dipstick Negative /ul (Negative); Nitrite-Dipstick Negative (Negative); Occult Blood-Urine 10 /ul (Negative); Protein-Dipstick Negative (Negative); Urine Bilirubin Dipstick Negative (Negative); Urine Clarity Clear (Clear); Urine Urobilinogen Normal (Normal)
[2022-12-15 19:04] LABS: Red Blood Cells-Urine 0-5 SEEN /hpf (0-5); White Blood Cells 0 SEEN /hpf (0-5)
--- NOTE | 2022-12-15 19:25 | PCM.HP.STD ---
HPI - General General Date of Admission: 12/15/22 Date of Service: 12/15/22 Chief Complaint: RUE pain, taking her splint off, unable to safely be at home. HPI Narrative The patient is an 87 y/o F w/ PMHx: PAF, Hx CVA, HTN, HLD, Chronic hyponatremia, PVD, Pulmonary HTN, Suspected Underlying Cognitive impairment/possible Dementia unclear type with unclear behavioral disturbance, initial evaluation [facility] ED 12/15/22 with history of awaking in the middle the night to use the restroom and unfortunately suffered a mechanical fall landing onto her right wrist with deformity with no loss of consciousness but given severity of pain and evident suspected fracture and debility prompted ED evaluation. Work-up in the ED included T97.7, heart 63, BP 174/70, respiratory rate 17, 98% on room air, CBC with WBC 7.7, hemoglobin 12.1, platelet 186 with lymphopenia, coags with INR 2.1, PT 23.8, PTT 353.9, BMP not marked appearing aside glucose 112, plain film of the right wrist with diffuse osteopenia with transverse displaced fracture of the distal radius at the diaphyseal metaphyseal junction with questionable articular component through the distal radius, radiocarpal articulation remains anatomical with overall position related in the relation to the ulna and radial shaft however unable to exclude an avulsion fracture of the ulnar styloid process, CT of the brain with chronic involutional changes, chest x-ray with no acute cardiopulmonary findings with chronic cardiomegaly evident, plain film of the pelvis with evidence of bilateral total hip arthroplasties with no evidence of any hardware complication or acute findings, CT cervical spine with no acute injuries with degenerative changes with posterior reduction right upper extremity wrist plain film with reduction in an casting the previously described distal radius fracture, small ulnar styloid fracture as well with improved alignment with some persistent impaction of the radial fracture fragments with most recent assessments given prolonged stay in the ED with T97.6, heart rate 102, BP 141/80, respiratory rate 14, 99% on room air, CBC with WBC 9.5, hemoglobin 12.5, platelet 210 with left shift and lymphopenia, coags with INR 2.1, PT 23.5, CMP with glucose 142 otherwise not marked appearing, urinalysis unremarkable with no obvious evidence of UTI, repeat imaging upon most recent evaluation with right wrist with no change in the displaced Colles' fracture, CT of the brain with chronic involutional changes otherwise no acute intracranial findings, chest x-ray with no acute cardiopulmonary findings. Given significant findings with discussion with orthopedic surgery Dr. Mcdonald patient transfer to tertiary facility was recommended and patient was accepted at [facility]. Patient now re-presents to the [facility] ED on 12/15/22 with care at [facility] per their report and description inclusive of per description possibly hematoma block and reduction with discharge to home with also initiation of antibiotics and a tetanus update secondary to skin tear with concern initially for open fracture with plan follow-up outpatient with orthopedic surgery however upon arrival home patient was more agitated and removed the splint and patient was even using the arm complaining it was hurting. Family does report that her memory has become worse and she is had more frequent falls over the last several weeks to months but since her recent discharge and since medications including sedation she has worsened. SW evaluated patient in the ED and reviewed concerns about patient and adult failure to thrive complicated by potentially agoraphobia in addition to picking her air out with increased agitation. [facility] Medical History CVA (cerebral vascular accident) (07/12/15) Essential hypertension Hyperlipidemia Hyponatremia prison current use of anticoagulant Paroxysmal 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 Secondary pulmonary arterial hypertension Venous insufficiency (chronic) (peripheral) Home Medications multivitamin with folic acid 400 mcg tablet 1 tab PO DAILY 07/14/20 [History Last Taken Unknown] warfarin 2 mg tablet 2 mg PO .COMPLEX #180 tabs 04/14/22 [Rx Last Taken Unknown] amlodipine 2.5 mg tablet 2.5 mg PO BID #180 tabs 10/18/22 [Rx Last Taken Unknown] lisinopril 40 mg tablet 40 mg PO DAILY #90 tabs 10/18/22 [Rx Last Taken Unknown] metoprolol tartrate 50 mg tablet 50 mg PO BID #180 tabs 10/18/22 [Rx Last Taken Unknown] simvastatin 20 mg tablet 20 mg PO QHS #90 tabs 10/18/22 [Rx Last Taken Unknown] Allergy/AdvReac Type Severity Reaction Status Date / Time atorvastatin [From Lipitor] AdvReac Severe Myalgias Verified 12/15/22 16:28 Family History Brother CAD (coronary artery disease) CABG in his 60's Heart disease Hypertension Mother No problems noted. Father No problems noted. Surgical History History of bilateral hip replacements History of cardioversion (09/17/15) History of tonsillectomy Social History household members: spouse Smoking Status: Never smoker alcohol intake: never substance use type: does not use caffeine: Yes Type: coffee Number of servings: 2 ROS ROS Narrative Admission Review of Systems: CONSTITUTIONAL: No fever, chills, + weakness or fatigue. Does also admit to weight loss, unintentional over the last 1-2 years, admits to poor intake patterns. HEENT: + Hair pulling associated with loss, visible scalp picked regions/chronic picking. Eyes: No visual loss, blurred vision, double vision or yellow sclerae. Ears, Nose, Throat: No hearing loss, sneezing, congestion, runny nose or sore throat. SKIN: + Various picked regions including on scalp, BL LE stasis skin changes, RUE w/ skin tear/abrasion following recent fall. CARDIOVASCULAR: No chest pain, chest pressure or chest discomfort, palpitations, edema, orthopnea, syncopal events. RESPIRATORY: No shortness of breath, cough or sputum, wheezing, hemoptysis. GASTROINTESTINAL: + anorexia. No nausea, vomiting or diarrhea, abdominal pain, melena, BRBPR. GENITOURINARY: No dysuria, frequency, urgency or retention. NEUROLOGICAL: + Underlying cognitive impairment, falls. No headache, dizziness, syncope, paralysis, ataxia, numbness or tingling in the extremities, focal weakness, change in bowel or bladder control, seizure. MUSCULOSKELETAL: + muscle, back pain, joint pain or stiffness. HEMATOLOGIC: No anemia. + Easy bleeding or bruising. LYMPHATICS: No enlarged nodes. No history of splenectomy. PSYCHIATRIC: + history of anxiety. ENDOCRINOLOGIC: No reports of sweating, cold or heat intolerance. No polyuria or polydipsia. ALLERGIES: No history of asthma, hives, eczema or rhinitis. Vital Signs Vital Signs Vital Signs: 12/15/22 16:31 Temperature 97.6 F L Temperature Source Temporal Pulse Rate 102 H Respiratory Rate 14 Blood Pressure 141/80 H Blood Pressure Mean 100 Pulse Ox 99 Oxygen Delivery Method Room Air Weight Weight: 133 lb 2.547 oz Body Mass Index (BMI) 24.3 Physical Exam Narrative Physical Examination: General: Awake, alert, oriented to self, place and some recent events but significant evidence of cognitive impairment, underlying dementia suspected per family which has been worsening for the last several months, patient currently denying any significant pain to the right upper extremity but poor story. Skin: Normal color, normal turgor, no icterus, no cyanosis except for noted very staged ecchymoses, picture regions, especially to the scalp with evidence of hair pulling, bilateral lower extremity stasis skin changes. HEENT: AT aside from evidence of hair pulling and picked scab regions/NC, EOMI, PERRLA, mildly dry MM, no carotid bruits or JVD noted. Lungs: Mildly diminished, greater bases, appropriate effort, no rales, ronchi or wheezing. Heart: Mildly tachycardic with regular rhythm; no gallop, rub audible. Abdomen: Soft, NTTP, ND, hyperactive BS, no HSM. Extremities: No cyanosis, no clubbing, right upper extremity and splinting with overwrap, able to move fingers, fingers warm to touch. Neurological: Patient awake, alert, oriented as noted, cognitive function impaired with underlying cognitive decline and suspected underlying dementia which has been worsening over the last several months, currently she appears likely more toward the baseline but has significantly been altered over the last 48 hours given fall, transfer, attempted discharge to home with several medications that are new to patient also being taken while inpatient for pain and sedation; pupils equally reactive to light and accommodation, cranial nerves grossly normal, moving extremities except expected limitation right upper extremity with fracture, strength moderately to severely globally decreased Psychiatric: Affect appears anxious, no acute evidence of depressive feelings. Results Lab / Micro Data 12/15/22 17:35 12/15/22 17:35 Labs: Laboratory Results - last 24 hr 12/15/22 17:35: WBC 9.5, RBC 4.00 L, Hgb 12.5, Hct 38.0, MCV 95.0, MCH 31.3, MCHC 32.9, RDW Std Deviation 44.2 H, RDW Coeff of Isis 12.8, Plt Count 210, MPV 10.4, Immature Gran % (Auto) 0.500, Neut % (Auto) 86.6 H, Lymph % (Auto) 2.8 L, Karnes % (Auto) 9.6, Eos % (Auto) 0.2, Baso % (Auto) 0.3, Absolute Neuts (auto) 8.2 H, Absolute Lymphs (auto) 0.27 L, Nucleated RBC % 0, Differential Comment SCANNED, PT 23.5 H, INR 2.1, Sodium 140, Potassium 3.7, Chloride 107, Carbon Dioxide 30.0, Anion Gap 3 L, BUN 15, Creatinine 0.91, Estim Creat Clear Calc 33.80, Est GFR (MDRD) Af Amer 75, Est GFR (MDRD) Non-Af 62, BUN/Creatinine Ratio 16.5, Glucose 142 H, Calcium 9.2, Total Bilirubin 0.60, AST 23, ALT 28, Alkaline Phosphatase 98, Total Protein 6.9, Albumin 3.6, Globulin 3.3, Albumin/Globulin Ratio 1.1 12/15/22 18:35: Urine Color Yellow, Urine Clarity Clear, Urine pH 5.0, Ur Specific Suches 1.020, Urine Protein Negative, Urine Glucose (UA) Normal, Urine Ketones Negative, Urine Occult Blood 10 H, Urine Nitrite Negative, Urine Bilirubin Negative, Urine Urobilinogen Normal, Ur Leukocyte Esterase Negative, Urine RBC 0-5 SEEN, Urine WBC 0 SEEN, Ur Squamous Epith Cells 0 SEEN, Urine Bacteria 0 SEEN, Urine Mucus 0 SEEN Radiology Impression Wrist X-Ray 12/15/22 17:25 IMPRESSION: No change in the displaced Colles'' fracture. Electronically Signed: Constantino Paez MD at 18:44 EDT Reading Location ID and State: [id number] [employer] , Service support , Brain CT 12/15/22 17:37 IMPRESSION: Chronic involutional changes of the brain. Electronically Signed: Constantino Paez MD at 18:37 EDT Reading Location ID and State: [id number] [employer] , Service support , Chest X-Ray 12/15/22 17:46 IMPRESSION: No active disease. Cardiomegaly. Electronically Signed: Constantino Paez MD at 18:41 EDT , Assessment & Plan Assessment/Plan (1) Open fracture of right radius and ulna: PLAN: Plan The patient is an 87 y/o F w/ PMHx: PAF, Hx CVA, HTN, HLD, Chronic hyponatremia, PVD, Pulmonary HTN, Suspected Underlying Cognitive impairment/possible Dementia unclear type with unclear behavioral disturbance, initial evaluation [facility] ED 12/15/22 with history of awaking in the middle the night to use the restroom and unfortunately suffered a mechanical fall landing onto her right wrist with deformity with no loss of consciousness but given severity of pain and evident suspected fracture and debility prompted ED evaluation eventually transferred to [facility] with right wrist displaced distal radial fracture and ulnar fracture discharged to home now re-presenting to the [facility] ED on 12/15/22 with inability to safely be at home, high fall risk, taking off her splint and using the extremity. #1. Mechanical fall with associated right wrist displaced distal radial fracture and ulnar fracture with Adult FTT, High repeat fall risk, Unsafe home self-care potential: We will admit to medical surgical floor, maintain on fall precaution, we will continue right upper extremity in splint and sling with nonweightbearing status, will have oral and IV pain regimen as needed, as needed antiemetic regimen, will continue to apply to skin laceration bacitracin and Telfa pad w/ anterior-posterior well-padded splint, BRIAN wrap around splint and overlapping coban. Will request neurvascular checks q4 hours. PT/OT/case management consulted for discharge planning. #2. Suspected Underlying Cognitive impairment/possible Dementia unclear type with unclear behavioral disturbance: Worsening over the last several months, complicates presentation. SW evaluated patient in the ED and reviewed concerns about patient and adult failure to thrive complicated by potentially agoraphobia in addition to picking her air out with increased agitation. This led to patient taking off her splint, notably concern for ability to be home safely, PT/OT/CM for discharge planning. #3. PAF: We will continue patient home metoprolol, discontinuing Coumadin, trend INR, will need OR but unclear date. Also, given patient increasing falls and worsening cognitive status at this point would be higher risk to benefit to continue Coumadin which was discussed at length with family and they agree. #4. History CVA: As noted given presentation discontinuing Coumadin, trend INR, will need OR but unclear date, continue hypertensive regimen as well as statin therapy. #5. Hypertension: Continue home regimen including amlodipine, lisinopril, metoprolol, PRN hydralazine. #6. Hyperlipidemia: We will continue patient on statin therapy. #7. Chronic hyponatremia: Noted in chart history previously however patient sodium levels in more recent years have normalized and mild hyponatremia was noted more so in 2016, admission sodium and repeat normal, continue to trend. #8. DVT prophylaxis: SCDs, discontinuing coumadin, trend INR, will need OR but unclear date. #9. CODE status: Patient DARRION is her daughter Shannon who is present and living will is currently in place. Discussed CODE status at length including difference between FULL code, DNR-CCA and DNR-CC status. Following discussions about the differences in these status, requested DNR-CCA, no intubation status. Advanced Care Planning Face to Face Time: 16 minutes. Charges/Coding Visit Charges Inpatient E&M: 57796 Init Hosp L3 Procedures Hospitalists Procedures: 59213 Advncd Care Plan 30 Min
--- NOTE | 2022-12-15 19:37 | CM.ED ---
Social Work SW introduced self and role to patient and family. Pt was here early this morning for fracture, sent to [facility] then discharged home. Family brought patient due to her removing the splint from her arm when family was in the other room. Additionally family reports patient is in pain and was not discharged with pain meds and patient has been significantly more confused than normal. Family has concerns with their ability to keep patient safe. Pt has been living in her home with her and daughter. Family helps care for patient but they report increased confusion and patient insisting her arm was not broken. Pt's family believes patient may need usp until improved mental/physical condition. Family is concerned about the amount of pain patient has been in and [facility] would not discharge with pain meds due to patient being a fall risk. SW reviewed pt's demographics. Pt sees Dr. Hamm as PCP but family reports she has refused to go to her appointments recently. Pt uses [facility] for prescriptions. Pt's family reports she does tasks independently at home except she does not cook or do laundry. Family denies any previous SNF or HHC. SW reviewed if patient is admitted the [facility] 3 night rule applies and explored whether self pay would be an option if insurance would not cover. Pt's family does not believe self-pay would be an option but were unsure. SW provided pt/family with SNF list for review if needed. If patient is able to be safe with HHC, home services could be an option too. Plan: Possible admission, SW to follow for patient needs HHC -VS- SNF. Naomi Ruggiero TUB CHUCKER, PESTIC[employer] USE MEDICAL COORDINATOR
[2022-12-15 20:11] LABS: Magnesium 2.1 mg/dL (1.6-2.6); Phosphorus 2.5 mg/dL (2.5-4.9)
[2022-12-15 21:00] VITALS: BP 148/70; PULSE 82; RESP 14; TEMP 37.1; O2SAT 99
[2022-12-15 21:18] VITALS: BP 148/70; PULSE 82; RESP 14; TEMP 37.1; O2SAT 99
[2022-12-15] MEDS: 0.9% Normal Saline (1000mL) 1,000 ML 100 ML IV (21:39)
[2022-12-15] MEDS: 0.9% Saline Lock 10 ML Syringe IV (21:40)
[2022-12-15 22:06] VITALS: PULSE 82
[2022-12-15] MEDS: QUEtiapine 25 MG Tablet PO (22:06)
[2022-12-15] MEDS: amLODIPine 2.5 MG Tablet PO (22:06)
[2022-12-15] MEDS: Metoprolol Tartrate 50 MG Tablet PO (22:06)
[2022-12-15] MEDS: Acetaminophen 325 MG Tablet 650 MG PO (22:09)
[2022-12-15] MEDS: MELATONIN 3 MG TABLET PO (22:09)
--- NOTE | 2022-12-15 23:30 | NURSING ---
TECHNICAL SUPPORT COORDINATOR informed this RN that pt had removed splint on R arm. This RN re-applied brace and wrapped it with kerlex, joshua wrap, and coband. Attempts to re-orient pt not very successful. Pt is very confused and doesn't understand why she needs to leave the splint alone. Educated pt, to the best of this RN's ability, the importance of leaving splint on arm and not removing it. Teaching will need re-inforced. Pt assisted to BSC and back to bed, call light within reach, bed alarm on. Plan of care continues.
[2022-12-15] MEDS: Morphine 2 MG/ML Syringe IV (23:45)
[2022-12-16] VITALS (7 sets, daily range): BP systolic 128–136; BP diastolic 56–68; PULSE 74–83; RESP 12–14; TEMP 36.6–37.2; O2SAT 91–98; BMI 23.1
--- NOTE | 2022-12-16 04:30 | NURSING ---
Pt again attempted to rip right arm splint off, aggressive with staff, yelling and kicking. Right forearm splint re-wrapped and secured. Pt not receptive to staff attempts to re-orient and calm pt down. Pt eventually settles down a bit. Bed alarm on. Plan of care continues.
[2022-12-16] MEDS: Morphine 2 MG/ML Syringe IV (04:47)
[2022-12-16 07:37] LABS: Absolute Lymphocyte Count 0.55 X10^3/uL (0.83-4.51); Absolute Neutrophil Count 4.8 X10^3/uL (2.0-7.7); Basophil# 0.02 X10^3/uL; Basophil% 0.3 % (0-1); Eosinophil# 0.02 X10^3/uL; Eosinophils% 0.3 % (0-5); Hematocrit 32.5 % (37-47); Hemoglobin 10.4 g/dL (12.0-15.0); Lymphocyte # 0.55 X10^3/ul (0.83-4.51); Lymphocyte % 8.9 % (19-41); Mean Corpuscular Hgb 30.8 pg (27.0-32.0); Mean Corpuscular Volume 96.2 fL (81-99); Mean Platelet Vol. 10.8 fl (6.2-12.0); Monocyte% 11.4 % (0-10); NRBC Flagged by Analyzer 0 % (0-5); Neutrophil # 4.84 X10^3/uL (2.7-7.7); Neutrophil % 78.6 % (47-70); POSITIVE DIFFERENTIAL YES; Platelet Count 167 K/mm3 (150-450); RBC Distribution Width CV 12.9 % (11.6-14.6); RBC Distribution Width SD 45.1 fl (35.1-43.9); Red Blood Count 3.38 M/mm3 (4.2-5.4); White Blood Count 6.2 K/mm3 (4.4-11.0)
[2022-12-16 07:40] LABS: International Normalized Ratio 2.1; Prothrombin Time (Protime)PT. 23.6 SECONDS (11.7-14.9)
[2022-12-16 07:49] LABS: Differential Indicated SCAN CRITERIA MET
[2022-12-16 08:07] LABS: ALB/GLOB Ratio 0.9 RATIO (0.9-2.4); AST(SGOT) 31 U/L (15-37); Alanine Aminotransfer ALT/SGPT 26 U/L (13-56); Albumin, Serum 2.6 g/dL (3.2-5.0); Alkaline Phosphatase 80 U/L (45-117); Anion Gap 5 (5-15); BUN 11 mg/dL (7-18); BUN/Creat Ratio 14.3 RATIO (10-20); Calcium,Total 8.6 mg/dL (8.5-10.1); Chloride 110 mmol/L (98-107); Creatinine, Serum 0.77 mg/dL (0.55-1.02); EST Glomerular Filtration Rate 75 mL/min (>60); Est Glom Filt Rate - Afr Amer 91 mL/min (>60); Estimated Creatinine Clearance 30.76 ml/min; Glucose 101 mg/dL (74-106); Potassium 3.7 mmol/L (3.5-5.1); Protein, Total 5.6 g/dL (6.4-8.2); Sodium Level 141 mmol/L (136-145)
[2022-12-16 08:39] LABS: Differential Comment SCANNED
--- NOTE | 2022-12-16 09:00 | NURSING ---
Pt agitated, cannot redirect. notified, medication orders received. Staff with patient for safety.
[2022-12-16] MEDS: Haloperidol Lactate 5 MG/ML Vial 1 MG IM (09:28)
[2022-12-16] MEDS: Acetaminophen 325 MG Tablet 650 MG PO (10:24)
[2022-12-16] MEDS: QUEtiapine 25 MG Tablet PO ×2 (10:25→21:15)
--- NOTE | 2022-12-16 11:27 | WOUNDNOTE ---
Was asked to see patient for laceration to the RUE. Pt had been sent to [facility] to a hand specialist and a splint was applied. the splint is intact at this time and patient is resting with eyes closed. sitter at bedside states patient has finally been resting. had been quite agitated through the night. left splint in place. will monitor as needed. daughter in to visit patient at this time.
[2022-12-16] MEDS: oxyCODONE 5 MG Tablet 2.5 MG PO ×2 (11:58→16:19)
--- NOTE | 2022-12-16 13:45 | CASEMGMT ---
[facility] Face to Face with daughters in room for initial transition planning/care coordination assessment. RN CM introduced self and role at [facility]. Patient lying in bed, sleeping. Daughters willing to participate in assessment and is able to answer all questions appropriately. Care providers, pharmacy, and demographics verified. Daughter wish for patient to discharge to SNF for additional rehab. RN CM requested daughter review list with and provide SNF preferences. Daughters state they has no further needs or concerns at this time. SW updated regarding request for placement. CM to follow for discharge planning needs that may arise. PCP: [facility] Specialists: Rnady [employer] Preferred Pharmacy:[facility] Insurance: [employer] Prescription Benefit: yes Living Will/HPOA: yes, but daughter to look for and provide. Till then is decision maker. Daughter provided fiancial POA thinking it was also Medical POA LNOK: , 3 daughters Living Arrangements: Patient lives with and autistic daughter in a 2 story home with bed and bath on first floor, ramp to enter the home. Patient was able to perform self care independently prior to hospitalization Transportation: daughters DME/HHC: Patient has shower chair, BSC, cane, walker, and grab bars. No preivous HHC or SNF. Disposition Plan: SNF pending acceptance. Swati TAMAYON, RN, CM
--- NOTE | 2022-12-16 14:32 | PN_ITS ---
Subjective Subjective Patient seen and examined. She was very confused and appeared like she was hallucinating. She was trying to climb out of bed. She had a sitter by her. Unable to do comprehensive review of systems on account of patient's confusion. Objective Data Objective Data Vital Signs: Vital Signs Temp Pulse Resp BP Pulse Ox O2 Del Method 98.9 F 80 12 128/56 H 91 Room Air 12/16/22 09:00 12/16/22 09:00 12/16/22 09:00 12/16/22 09:00 12/16/22 09:13 12/16/22 09:13 Oxygen Delivery Method Room Air Weight: 126 lb 5.198 oz Body Mass Index (BMI) 23.1 Intake & Output: Intake and Output for Last 24 Hours 12/14/22 12/15/22 12/16/22 23:59 23:59 23:59 Intake Total 1000 / 1000 Balance 1000 / 1000 Lab / Micro Data 12/16/22 07:05 12/16/22 07:05 Labs: Laboratory Results - last 24 hr 12/15/22 17:35: WBC 9.5, RBC 4.00 L, Hgb 12.5, Hct 38.0, MCV 95.0, MCH 31.3, MCHC 32.9, RDW Std Deviation 44.2 H, RDW Coeff of Isis 12.8, Plt Count 210, MPV 10.4, Immature Gran % (Auto) 0.500, Neut % (Auto) 86.6 H, Lymph % (Auto) 2.8 L, [place] % (Auto) 9.6, Eos % (Auto) 0.2, Baso % (Auto) 0.3, Absolute Neuts (auto) 8.2 H, Absolute Lymphs (auto) 0.27 L, Nucleated RBC % 0, Differential Comment SCANNED, PT 23.5 H, INR 2.1, Sodium 140, Potassium 3.7, Chloride 107, Carbon Dioxide 30.0, Anion Gap 3 L, BUN 15, Creatinine 0.91, Estim Creat Clear Calc 33.80, Est GFR (MDRD) Af Amer 75, Est GFR (MDRD) Non-Af 62, BUN/Creatinine Ratio 16.5, Glucose 142 H, Calcium 9.2, Phosphorus 2.5, Magnesium 2.1, Total Bilirubin 0.60, AST 23, ALT 28, Alkaline Phosphatase 98, Total Protein 6.9, Albumin 3.6, Globulin 3.3, Albumin/Globulin Ratio 1.1 12/15/22 18:35: Urine Color Yellow, Urine Clarity Clear, Urine pH 5.0, Ur Specific [place] 1.020, Urine Protein Negative, Urine Glucose (UA) Normal, Urine Ketones Negative, Urine Occult Blood 10 H, Urine Nitrite Negative, Urine Bilirubin Negative, Urine Urobilinogen Normal, Ur Leukocyte Esterase Negative, Urine RBC 0-5 SEEN, Urine WBC 0 SEEN, Ur Squamous Epith Cells 0 SEEN, Urine Bacteria 0 SEEN, Urine Mucus 0 SEEN 12/16/22 07:05: WBC 6.2, RBC 3.38 L, Hgb 10.4 L, Hct 32.5 L, MCV 96.2, MCH 30.8, MCHC 32.0, RDW Std Deviation 45.1 H, RDW Coeff of Isis 12.9, Plt Count 167, MPV 10.8, Immature Gran % (Auto) 0.500, Neut % (Auto) 78.6 H, Lymph % (Auto) 8.9 L, [place] % (Auto) 11.4 H, Eos % (Auto) 0.3, Baso % (Auto) 0.3, Absolute Neuts (auto) 4.8, Absolute Lymphs (auto) 0.55 L, Nucleated RBC % 0, Differential Comment SCANNED, PT 23.6 H, INR 2.1, Sodium 141, Potassium 3.7, Chloride 110 H, Carbon Dioxide 26.0, Anion Gap 5, BUN 11, Creatinine 0.77, Estim Creat Clear Calc 30.76, Est GFR (MDRD) Af Amer 91, Est GFR (MDRD) Non-Af 75, BUN/Creatinine Ratio 14.3, Glucose 101, Calcium 8.6, Total Bilirubin 0.70, AST 31, ALT 26, Alkaline Phosphatase 80, Total Protein 5.6 L, Albumin 2.6 L, Globulin 3.0, Albumin/Globulin Ratio 0.9 Radiography Diagnostic Testing: Radiology Impression Wrist X-Ray 12/15/22 17:25 IMPRESSION: No change in the displaced Colles'' fracture. Electronically Signed: Constantino Paez MD at 18:44 EDT , Brain CT 12/15/22 17:37 IMPRESSION: Chronic involutional changes of the brain. Electronically Signed: Constantino Paez MD at 18:37 EDT , Chest X-Ray 12/15/22 17:46 IMPRESSION: No active disease. Cardiomegaly. Electronically Signed: Constantino Paez MD at 18:41 EDT , Physical Exam Const alert Orientation / Consciousness: confused HEENT normocephalic and head/scalp atraumatic Neck no lymphadenopathy and supple Resp normal respiratory effort, normal air movement and clear to auscultation bilaterally GI normal to inspection, nondistended, normoactive bowel sounds, soft to palpation, non-tender and non-distended Extremity Extremity Narrative: RUE wrapped in bandage Neuro CN's II-XII intact bilaterally Motor Exam: general weakness Psych Psych Narrative: confused, disoriented Assessment & Plan Assessment/Plan (1) Adult failure to thrive: (2) Open fracture of right radius and ulna: (3) Altered mental status: PLAN: Plan #Altered mental status * Patient has apparently been getting more confused at home and family is concerned that this is a progression of her dementia. Patient is agitated here and required Haldol today. She is on Seroquel and dose was increased to 25 mg twice daily. * She has a sitter by here. * CT of the brain showed no acute intracranial pathology. Urinalysis showed no evidence of UTI. Patient does have underlying dementia and it appears that he has gradually been more getting worse. Family unable to care for her at home. Will likely need placement. * #Right wrist fracture * Sustained a displaced right wrist radial and ulnar fracture a few weeks ago. She was transferred to outside hospital on account of concern for open fracture. The fracture was reduced and she had a splint applied. * patient however pulled off her splint at home, and so was brought in to the ED due to pain of RUE * splint has been applied. PT./OT on board. * splint also BRIAN wrappd. * ffall precautions * #Paroxysmal afib: on metoprolol. Coumadin discontinued due to frequent falls. #Hypertension: on amlodipine, lisinopril and metoprolol #Hyperlipidemia: on statin #Chronic hyponatremia; stable. Will monitor #History of CVA: on statin. on metoprolol. coumadin dc'd due to risk of mechanical falls DVT prophylaxis: SCDs Charges/Coding Visit Charges Inpatient E&M: 43245 Subs Hosp L2
[2022-12-16] MEDS: CLARIFY ORDER 1 EACH NOTE (18:24)
[2022-12-16] MEDS: Simvastatin 20 MG Tablet PO (21:14)
[2022-12-16] MEDS: Metoprolol Tartrate 50 MG Tablet PO (21:15)
[2022-12-16] MEDS: amLODIPine 2.5 MG Tablet PO (21:15)
[2022-12-16] MEDS: Menthol/Lanolin/Calamine/Znox 113 GM Tube 1 APPLIC TOPICAL (21:16)
[2022-12-17] VITALS (7 sets, daily range): BP systolic 111–137; BP diastolic 55–64; PULSE 66–89; RESP 14–20; TEMP 36.6–36.9; O2SAT 92–98; BMI 23.2
[2022-12-17] MEDS: oxyCODONE 5 MG Tablet 2.5 MG PO ×2 (01:29→11:41)
[2022-12-17 08:35] LABS: Anion Gap 6 (5-15); BUN 12 mg/dL (7-18); Calcium,Total 8.4 mg/dL (8.5-10.1); Chloride 106 mmol/L (98-107); Creatinine, Serum 0.71 mg/dL (0.55-1.02); EST Glomerular Filtration Rate 83 mL/min (>60); Est Glom Filt Rate - Afr Amer 100 mL/min (>60); Estimated Creatinine Clearance 30.76 ml/min; Glucose 91 mg/dL (74-106); Potassium 4.1 mmol/L (3.5-5.1); Sodium Level 135 mmol/L (136-145)
[2022-12-17] MEDS: amLODIPine 2.5 MG Tablet PO ×2 (09:06→21:25)
[2022-12-17] MEDS: QUEtiapine 25 MG Tablet PO ×2 (09:07→21:25)
[2022-12-17] MEDS: Multivitamins,Therapeutic Tablet 1 TABLET PO (09:07)
[2022-12-17] MEDS: Metoprolol Tartrate 50 MG Tablet PO ×2 (09:07→21:24)
[2022-12-17] MEDS: Lisinopril 40 MG Tablet PO (09:07)
--- NOTE | 2022-12-17 09:20 | PN.HOSP_ITS ---
Reason for Visit Reason for Visit: Diagnoses Altered mental status, unspecified (12/15/22) Adult failure to thrive (12/15/22) Unspecified fracture of shaft of right ulna, initial encounter for open fracture type I or II (12/15/22) Unspecified fracture of right forearm, initial encounter for open fracture type I or II (12/15/22) Subjective Subjective No new complaints. Objective Data Objective Data Vital Signs: Vital Signs Temp Pulse Resp BP Pulse Ox O2 Del Method 36.7 C 89 18 137/64 H 96 Room Air 12/17/22 09:01 12/17/22 09:07 12/17/22 09:01 12/17/22 09:01 12/17/22 09:01 12/17/22 09:01 Oxygen Delivery Method Room Air Weight: 57.6 kg Body Mass Index (BMI) 23.2 Intake & Output: Intake and Output for Last 24 Hours 12/15/22 12/16/22 12/17/22 23:59 23:59 23:59 Intake Total 1420 / 1420 0 / 0 Balance 1420 / 1420 0 / 0 Lab / Micro Data 12/17/22 10:56 12/17/22 07:18 Labs: Laboratory Results - last 24 hr 12/17/22 07:18: Sodium 135 L, Potassium 4.1, Chloride 106, Carbon Dioxide 23.0, Anion Gap 6, BUN 12, Creatinine 0.71, Estim Creat Clear Calc 30.76, Est GFR (MDRD) Af Amer 100, Est GFR (MDRD) Non-Af 83, BUN/Creatinine Ratio 17.0, Glucose 91, Calcium 8.4 L Physical Exam Const alert and no apparent distress HEENT head/scalp atraumatic and moist oral mucous membranes Resp normal respiratory effort, no retractions, no use of accessory muscles and clear to auscultation bilaterally Cardio regular rate, regular rhythm, S1 normal heart sound and S2 normal heart sound GI normal to inspection, nondistended, normoactive bowel sounds, soft to palpation and non-tender Extremity Extremity Narrative: right wrist casted. Neuro Sensorium / Orientation: awake and alert Assessment & Plan Assessment/Plan (1) Adult failure to thrive: PLAN: PT OT may need SNF. (2) Open fracture of right radius and ulna: QUALIFIERS: Encounter type: subsequent encounter PLAN: Right wrist fracture Sustained a displaced right wrist radial and ulnar fracture a few weeks ago. She was transferred to outside hospital on account of concern for open fracture. The fracture was reduced and she had a splint applied. patient however pulled off her splint at home, and so was brought in to the ED due to pain of RUE splint has been applied. PT./OT on board. splint also BRIAN wrappd. ffall precautions (3) Altered mental status: PLAN: Altered mental status Patient has apparently been getting more confused at home and family is concerned that this is a progression of her dementia. Patient is agitated here and required Haldol today. She is on Seroquel and dose was increased to 25 mg twice daily. She has a sitter by here. CT of the brain showed no acute intracranial pathology. Urinalysis showed no evidence of UTI. Patient does have underlying dementia and it appears that he has gradually been more getting worse. Family unable to care for her at home. Will likely need placement. PLAN: Plan Chronic conditions: * Paroxysmal afib: on metoprolol. Coumadin discontinued due to frequent falls. * Hypertension: on amlodipine, lisinopril and metoprolol * Hyperlipidemia: on statin * Chronic hyponatremia; stable. Will monitor * History of CVA: on statin. on metoprolol. coumadin dc'd due to risk of mechanical falls DVT prophylaxis: SCDs DW Dtrs at bedside. Disposition: medically stable. Awaiting on TCU acceptance and insurance approval. Charges/Coding Visit Charges Inpatient E&M: 57522 Subs Hosp L2
[2022-12-17 11:15] LABS: Absolute Neutrophil Count 6.1 X10^3/uL (2.0-7.7); Basophil# 0.03 X10^3/uL; Basophil% 0.4 % (0-1); Eosinophil# 0.06 X10^3/uL; Eosinophils% 0.8 % (0-5); Hematocrit 35.7 % (37-47); Hemoglobin 11.5 g/dL (12.0-15.0); Lymphocyte % 6.7 % (19-41); Mean Corp Hgb Conc 32.2 g/dL (32-36); Mean Corpuscular Hgb 30.7 pg (27.0-32.0); Mean Corpuscular Volume 95.2 fL (81-99); Mean Platelet Vol. 10.8 fl (6.2-12.0); Monocyte# 0.69 X10^3/uL; Monocyte% 9.3 % (0-10); NRBC Flagged by Analyzer 0 % (0-5); Neutrophil # 6.13 X10^3/uL (2.7-7.7); Neutrophil % 82.5 % (47-70); POSITIVE DIFFERENTIAL YES; Platelet Count 164 K/mm3 (150-450); RBC Distribution Width SD 45.6 fl (35.1-43.9); Red Blood Count 3.75 M/mm3 (4.2-5.4); White Blood Count 7.4 K/mm3 (4.4-11.0)
[2022-12-17 11:16] LABS: Differential Indicated SCAN CRITERIA MET
--- NOTE | 2022-12-17 11:29 | CASEMGMT ---
Social Work Pt's daughter emailed pt's POA for healthcare to [facility]. Shannon Kline, pt's daughter, is POA for healthcare. SW printed POA document and placed a copy on the chart. REGINE Juarez
--- NOTE | 2022-12-17 11:31 | CASEMGMT ---
Addendum entered by Negar Man 12/17/22 14:58: Social Work Daughter informed transmitter engineer in charge their second choice to TCU is [facility]. SW to make referral if TCU cannot take pt. REGINE Juarez Original Note: Social Work SW spoke w/POA daughter Shannon and other daughter in room in regard to discharge plan. They were given a list of detention facilities from [facility], in pt's preferred geographic area, in insurance network and complete w/quality and resource use data. Shannon had some initial questions about detention facility, what is offered there, how it's covered. SW explained to daughter that pt would get cared for, get personal care, meds, therapy, meals, while at the intermediate. SW explained the Medicare benefit as well. Daughter would like pt to go to TCU, she is not yet sure about a second and third choice. She is going to go look at facilities this weekend and SW let her know that the SW here will follow up w/her on Monday. SW did call TCU and left message regarding referral. REGINE Juarez
[2022-12-17 11:57] LABS: Differential Comment SCANNED
--- NOTE | 2022-12-17 12:33 | NURSING ---
Prescription for increased oxygen demands sent to [facility].
[2022-12-17] MEDS: Simvastatin 20 MG Tablet PO (21:23)
[2022-12-18 02:08] VITALS: BP 137/51; PULSE 70; RESP 14; TEMP 36.4; O2SAT 97
[2022-12-18 05:13] VITALS: BMI 22.9
[2022-12-18 07:16] LABS: Absolute Lymphocyte Count 0.65 X10^3/uL (0.83-4.51); Absolute Neutrophil Count 6.6 X10^3/uL (2.0-7.7); Basophil# 0.03 X10^3/uL; Basophil% 0.4 % (0-1); Eosinophil# 0.16 X10^3/uL; Eosinophils% 1.9 % (0-5); Hematocrit 39.6 % (37-47); Lymphocyte # 0.65 X10^3/ul (0.83-4.51); Lymphocyte % 7.9 % (19-41); Mean Corp Hgb Conc 32.8 g/dL (32-36); Mean Corpuscular Hgb 31.3 pg (27.0-32.0); Mean Corpuscular Volume 95.2 fL (81-99); Mean Platelet Vol. 11.1 fl (6.2-12.0); Monocyte# 0.74 X10^3/uL; NRBC Flagged by Analyzer 0 % (0-5); Neutrophil # 6.62 X10^3/uL (2.7-7.7); Neutrophil % 80.4 % (47-70); Platelet Count 196 K/mm3 (150-450); RBC Distribution Width SD 45.3 fl (35.1-43.9); Red Blood Count 4.16 M/mm3 (4.2-5.4); White Blood Count 8.2 K/mm3 (4.4-11.0)
[2022-12-18 07:41] LABS: Anion Gap 3 (5-15); BUN 17 mg/dL (7-18); BUN/Creat Ratio 23.1 RATIO (10-20); Calcium,Total 9.2 mg/dL (8.5-10.1); Chloride 106 mmol/L (98-107); Creatinine, Serum 0.74 mg/dL (0.55-1.02); EST Glomerular Filtration Rate 79 mL/min (>60); Est Glom Filt Rate - Afr Amer 96 mL/min (>60); Estimated Creatinine Clearance 30.76 ml/min; Glucose 96 mg/dL (74-106); Potassium 3.5 mmol/L (3.5-5.1); Sodium Level 139 mmol/L (136-145)
--- NOTE | 2022-12-18 08:08 | PN.HOSP_ITS ---
Subjective Subjective Per daughter, patient was able to get modified utelsils. Objective Data Objective Data Vital Signs: Vital Signs Temp Pulse Resp BP Pulse Ox O2 Del Method 36.4 C L 70 14 137/51 H 97 Room Air 12/18/22 02:08 12/18/22 02:08 12/18/22 02:08 12/18/22 02:08 12/18/22 02:08 12/18/22 03:57 Oxygen Delivery Method Room Air Weight: 57 kg Body Mass Index (BMI) 22.9 Intake & Output: Intake and Output for Last 24 Hours 12/16/22 12/17/22 12/18/22 23:59 23:59 22:59 Intake Total 1420 / 1420 580 / 580 0 / 0 Output Total 350 / 350 Balance 1420 / 1420 580 / 580 -350 / -350 Lab / Micro Data 12/18/22 06:00 12/18/22 06:00 Labs: Laboratory Results - last 24 hr 12/17/22 07:18: WBC Cancelled, Corrected WBC Cancelled, RBC Cancelled, Hgb Cancelled, Hct Cancelled, MCV Cancelled, MCH Cancelled, MCHC Cancelled, RDW Std Deviation Cancelled, RDW Coeff of Isis Cancelled, Plt Count Cancelled, MPV Cancelled, Immature Gran % (Auto) Cancelled, Neut % (Auto) Cancelled, Lymph % (Auto) Cancelled, [place] % (Auto) Cancelled, Eos % (Auto) Cancelled, Baso % (Auto) Cancelled, Absolute Neuts (auto) Cancelled, Absolute Lymphs (auto) Cancelled, Total Counted Cancelled, Neutrophils % (Manual) Cancelled, Band Neutrophils % Cancelled, Lymphocytes % (Manual) Cancelled, Monocytes % (Manual) Cancelled, Eosinophils % (Manual) Cancelled, Basophils % (Manual) Cancelled, Metamyelocytes % Cancelled, Myelocytes % Cancelled, Promyelocytes % Cancelled, Blast Cells % Cancelled, Plasma Cell % (Manual) Cancelled, Other Cells % Cancelled, Nucleated RBC % Cancelled, Nucleated RBCs/100 WBC Cancelled, Differential Comment Cancelled, Diff Path Review Cancelled, Hypersegmented Neuts Cancelled, Atypical Lymphocytes Cancelled, Reactive Lymphocytes Cancelled, Smudge Cells Cancelled, Toxic Granulation Cancelled, Toxic Vacuolation Cancelled, Dohle Bodies Cancelled, Terrance Rods Cancelled, Platelet Estimate Cancelled, Plt Morphology Comment Cancelled, RBC Morphology Cancelled 12/17/22 07:18: RBC Morphology Cancelled, Polychromasia Cancelled, Hypochromasia Cancelled, Poikilocytosis Cancelled, Basophilic Stippling Cancelled, Anisocytosis Cancelled, Microcytosis Cancelled, Macrocytosis Cancelled, Spherocytes Cancelled, Sickle Cells Cancelled, Target Cells Cancelled, Tear Drop Cells Cancelled, Ovalocytes Cancelled, Stomatocytes Cancelled, [place] Bodies Cancelled, Mingus Cells Cancelled, Bite Cells Cancelled, Crenated Cell Cancelled, Acanthocytes (Spur) Cancelled, Rouleaux Cancelled, Schistocytes Cancelled 12/17/22 10:56: WBC 7.4, RBC 3.75 L, Hgb 11.5 L, Hct 35.7 L, MCV 95.2, MCH 30.7, MCHC 32.2, RDW Std Deviation 45.6 H, RDW Coeff of Isis 13.0, Plt Count 164, MPV 10.8, Immature Gran % (Auto) 0.300, Neut % (Auto) 82.5 H, Lymph % (Auto) 6.7 L, [place] % (Auto) 9.3, Eos % (Auto) 0.8, Baso % (Auto) 0.4, Absolute Neuts (auto) 6.1, Absolute Lymphs (auto) 0.50 L, Nucleated RBC % 0, Differential Comment SCANNED 12/18/22 06:00: WBC 8.2, RBC 4.16 L, Hgb 13.0, Hct 39.6, MCV 95.2, MCH 31.3, MCHC 32.8, RDW Std Deviation 45.3 H, RDW Coeff of Isis 13.0, Plt Count 196, MPV 11.1, Immature Gran % (Auto) 0.400, Neut % (Auto) 80.4 H, Lymph % (Auto) 7.9 L, [place] % (Auto) 9.0, Eos % (Auto) 1.9, Baso % (Auto) 0.4, Absolute Neuts (auto) 6.6, Absolute Lymphs (auto) 0.65 L, Nucleated RBC % 0, Sodium 139, Potassium 3.5, Chloride 106, Carbon Dioxide 30.0, Anion Gap 3 L, BUN 17, Creatinine 0.74, Estim Creat Clear Calc 30.76, Est GFR (MDRD) Af Amer 96, Est GFR (MDRD) Non-Af 79, BUN/Creatinine Ratio 23.1 H, Glucose 96, Calcium 9.2 Physical Exam Const Constitutional Narrative: sleeping. non-toxic. HEENT head/scalp atraumatic and moist oral mucous membranes Assessment & Plan Assessment/Plan (1) Adult failure to thrive: PLAN: PT OT plant to go to TCU. (2) Open fracture of right radius and ulna: QUALIFIERS: Encounter type: subsequent encounter PLAN: Right wrist fracture Sustained a displaced right wrist radial and ulnar fracture a few weeks ago. She was transferred to outside hospital on account of concern for open fracture. The fracture was reduced and she had a splint applied. patient however pulled off her splint at home, and so was brought in to the ED due to pain of RUE splint has been applied. PT./OT on board. splint also BRIAN wrappd. ffall precautions (3) Altered mental status: PLAN: Altered mental status Patient has apparently been getting more confused at home and family is concerned that this is a progression of her dementia. Patient is agitated here and required Haldol today. She is on Seroquel and dose was increased to 25 mg twice daily. She has a sitter by here. CT of the brain showed no acute intracranial pathology. Urinalysis showed no evidence of UTI. Patient does have underlying dementia and it appears that he has gradually been more getting worse. Family unable to care for her at home. Will likely need placement. PLAN: Plan Chronic conditions: * Paroxysmal afib: on metoprolol. Coumadin discontinued due to frequent falls. * Hypertension: on amlodipine, lisinopril and metoprolol * Hyperlipidemia: on statin * Chronic hyponatremia; stable. Will monitor * History of CVA: on statin. on metoprolol. coumadin dc'd due to risk of mechanical falls DVT prophylaxis: SCDs DW Dtrs at bedside. Disposition: medically stable. Awaiting on TCU acceptance and insurance approval. Charges/Coding Visit Charges Inpatient E&M: 86068 [facility] Hosp L1
[2022-12-18 09:14] VITALS: BP 152/55; PULSE 80; RESP 16; TEMP 36.9; O2SAT 96
[2022-12-18 09:17] VITALS: PULSE 80
[2022-12-18] MEDS: amLODIPine 2.5 MG Tablet PO ×2 (09:17→21:29)
[2022-12-18] MEDS: Metoprolol Tartrate 50 MG Tablet PO ×2 (09:17→21:28)
[2022-12-18] MEDS: QUEtiapine 25 MG Tablet PO ×2 (09:20→21:29)
[2022-12-18] MEDS: Multivitamins,Therapeutic Tablet 1 TABLET PO (09:20)
[2022-12-18] MEDS: Lisinopril 40 MG Tablet PO (09:21)
[2022-12-18 14:30] VITALS: BP 119/54; PULSE 68; RESP 18; TEMP 37.2; O2SAT 97
[2022-12-18 21:10] VITALS: BP 118/53; PULSE 70; RESP 16; TEMP 36.3; O2SAT 97
[2022-12-18 21:28] VITALS: PULSE 70
[2022-12-18] MEDS: Simvastatin 20 MG Tablet PO (21:28)
[2022-12-19] MEDS: MELATONIN 3 MG TABLET PO (00:01)
[2022-12-19 03:10] VITALS: BP 113/63; PULSE 79; RESP 16; TEMP 36.4; O2SAT 99
[2022-12-19 05:19] LABS: Absolute Lymphocyte Count 0.81 X10^3/uL (0.83-4.51); Absolute Neutrophil Count 7.2 X10^3/uL (2.0-7.7); Basophil# 0.03 X10^3/uL; Basophil% 0.3 % (0-1); Eosinophil# 0.21 X10^3/uL; Eosinophils% 2.3 % (0-5); Hematocrit 36.1 % (37-47); Hemoglobin 12.2 g/dL (12.0-15.0); Lymphocyte # 0.81 X10^3/ul (0.83-4.51); Lymphocyte % 8.9 % (19-41); Mean Corp Hgb Conc 33.8 g/dL (32-36); Mean Corpuscular Hgb 31.8 pg (27.0-32.0); Mean Platelet Vol. 10.3 fl (6.2-12.0); Monocyte# 0.81 X10^3/uL; Monocyte% 8.9 % (0-10); NRBC Flagged by Analyzer 0 % (0-5); Neutrophil # 7.22 X10^3/uL (2.7-7.7); Neutrophil % 79.2 % (47-70); Platelet Count 221 K/mm3 (150-450); RBC Distribution Width CV 12.7 % (11.6-14.6); RBC Distribution Width SD 43.8 fl (35.1-43.9); Red Blood Count 3.84 M/mm3 (4.2-5.4); White Blood Count 9.1 K/mm3 (4.4-11.0)
[2022-12-19 05:59] LABS: Anion Gap 9 (5-15); BUN 20 mg/dL (7-18); BUN/Creat Ratio 28.1 RATIO (10-20); Calcium,Total 9.2 mg/dL (8.5-10.1); Chloride 106 mmol/L (98-107); Creatinine, Serum 0.71 mg/dL (0.55-1.02); EST Glomerular Filtration Rate 82 mL/min (>60); Est Glom Filt Rate - Afr Amer 100 mL/min (>60); Estimated Creatinine Clearance 30.76 ml/min; Glucose 116 mg/dL (74-106); Potassium 3.9 mmol/L (3.5-5.1); Sodium Level 139 mmol/L (136-145)
[2022-12-19 06:00] VITALS: BMI 22.9
[2022-12-19] MEDS: Morphine 2 MG/ML Syringe IV ×2 (07:09→10:15)
[2022-12-19 07:16] VITALS: BP 135/61; PULSE 81
--- NOTE | 2022-12-19 07:32 | PCM.PN.HOSP ---
Reason for Visit Reason for Visit: Diagnoses Altered mental status, unspecified (12/15/22) Adult failure to thrive (12/15/22) Unspecified fracture of shaft of right ulna, initial encounter for open fracture type I or II (12/15/22) Unspecified fracture of right forearm, initial encounter for open fracture type I or II (12/15/22) Subjective Subjective No new events, other than confusion. Objective Data Objective Data Vital Signs: Vital Signs Temp Pulse Resp BP Pulse Ox O2 Del Method 36.4 C L 81 16 135/61 H 99 Room Air 12/19/22 03:10 12/19/22 07:16 12/19/22 03:10 12/19/22 07:16 12/19/22 03:10 12/19/22 03:54 Oxygen Delivery Method Room Air Weight: 57 kg Body Mass Index (BMI) 22.9 Intake & Output: Intake and Output for Last 24 Hours 12/18/22 12/18/22 12/19/22 00:59 23:59 23:59 Intake Total 120 / 120 Output Total Balance 120 / 120 Lab / Micro Data 12/19/22 04:45 12/19/22 04:45 Labs: Laboratory Results - last 24 hr 12/18/22 06:00: Sodium 139, Potassium 3.5, Chloride 106, Carbon Dioxide 30.0, Anion Gap 3 L, BUN 17, Creatinine 0.74, Estim Creat Clear Calc 30.76, Est GFR (MDRD) Af Amer 96, Est GFR (MDRD) Non-Af 79, BUN/Creatinine Ratio 23.1 H, Glucose 96, Calcium 9.2 12/19/22 04:45: WBC 9.1, RBC 3.84 L, Hgb 12.2, Hct 36.1 L, MCV 94.0, MCH 31.8, MCHC 33.8, RDW Std Deviation 43.8, RDW Coeff of Isis 12.7, Plt Count 221, MPV 10.3, Immature Gran % (Auto) 0.400, Neut % (Auto) 79.2 H, Lymph % (Auto) 8.9 L, [place] % (Auto) 8.9, Eos % (Auto) 2.3, Baso % (Auto) 0.3, Absolute Neuts (auto) 7.2, Absolute Lymphs (auto) 0.81 L, Nucleated RBC % 0, Sodium 139, Potassium 3.9, Chloride 106, Carbon Dioxide 24.0, Anion Gap 9, BUN 20 H, Creatinine 0.71, Estim Creat Clear Calc 30.76, Est GFR (MDRD) Af Amer 100, Est GFR (MDRD) Non-Af 82, BUN/Creatinine Ratio 28.1 H, Glucose 116 H, Calcium 9.2 Physical Exam Const Constitutional Narrative: awake. non-toxic. Extremity normal to inspection Neuro Sensorium / Orientation: awake and alert Assessment & Plan Assessment/Plan (1) Adult failure to thrive: PLAN: PT OT plant to go to TCU. (2) Open fracture of right radius and ulna: QUALIFIERS: Encounter type: subsequent encounter PLAN: Right wrist fracture Sustained a displaced right wrist radial and ulnar fracture a few weeks ago. She was transferred to outside hospital on account of concern for open fracture. The fracture was reduced and she had a splint applied. patient however pulled off her splint at home, and so was brought in to the ED due to pain of RUE splint has been applied. PT./OT on board. splint also BRIAN wrappd. ffall precautions (3) Altered mental status: QUALIFIERS: Altered mental status type: delirium Qualified Code(s): R41.0 - Disorientation, unspecified PLAN: Altered mental status Patient has apparently been getting more confused at home and family is concerned that this is a progression of her dementia. Patient is agitated here and required Haldol today. She is on Seroquel and dose was increased to 25 mg twice daily. She has a sitter by here. CT of the brain showed no acute intracranial pathology. Urinalysis showed no evidence of UTI. Patient does have underlying dementia and it appears that he has gradually been more getting worse. Family unable to care for her at home. Will likely need placement. PLAN: Plan Chronic conditions: Paroxysmal afib: on metoprolol. Coumadin discontinued due to frequent falls. Hypertension: on amlodipine, lisinopril and metoprolol Hyperlipidemia: on statin Chronic hyponatremia; stable. Will monitor History of CVA: on statin. on metoprolol. coumadin dc'd due to risk of mechanical falls DVT prophylaxis: SCDs Disposition: medically stable. Awaiting on TCU acceptance and insurance approval. Charges/Coding Visit Charges Inpatient E&M: 31219 Subs Hosp L1
[2022-12-19 09:38] VITALS: BP 116/60; PULSE 73; RESP 15; TEMP 36.6; O2SAT 98
[2022-12-19 09:44] VITALS: BP 116/60; PULSE 73
[2022-12-19] MEDS: Metoprolol Tartrate 50 MG Tablet PO (09:44)
[2022-12-19] MEDS: Multivitamins,Therapeutic Tablet 1 TABLET PO (09:44)
[2022-12-19] MEDS: Menthol/Lanolin/Calamine/Znox 113 GM Tube 1 APPLIC TOPICAL ×3 (09:45→17:20)
[2022-12-19] MEDS: QUEtiapine 25 MG Tablet PO ×2 (09:45→18:43)
[2022-12-19] MEDS: Lisinopril 40 MG Tablet PO (09:45)
[2022-12-19] MEDS: amLODIPine 2.5 MG Tablet PO (09:45)
[2022-12-19] MEDS: 0.9% Saline Lock 10 ML Syringe IV (10:15)
--- NOTE | 2022-12-19 10:51 | CASEMGMT ---
Addendum entered by Negar Man 12/19/22 11:30: Social Work SW received an email from pt's daughter Jammie Ortega is the next choice for SNF. SW let florence Lucia/kristin campos, know. REGINE Juarez Addendum entered by Negar Man 12/19/22 10:54: Social work SW did ask daughter terminal operations supervisor plans, she states they are not sure yet. They are looking at whether or not pt would be able to return home vs. assisted living vs snf SNF. They want to see how pt does in rehab, then go from there. REGINE Juarez Original Note: Social Work SW spoke w/daughter in room, let her know that [facility]CU cannot take pt, and we are sending referral to [facility]. SW inquired what the next choice would be after [facility]. She states needs to speak w/pt's daughter and JOSTIN Ortega, she will let her know that TCU cannot take pt. SW will keep Shannon updated on the referral to [facility]. jennifer Lucia, will send referral to [facility]. SW will continue to follow. REGINE Juarez
--- NOTE | 2022-12-19 11:21 | CASEMGMT ---
Discharge Planning Referral sent to [facility] via [facility]. Rea Sabillon, Discharge Planning Asst.
--- NOTE | 2022-12-19 12:13 | TREXTCAR_ITS ---
Diet Diet Order/Speech Therapy: 12/15/22 21:03 Diet: Regular - General Food consistency:: Regular Liquid Consistency:: Regular/Thin Type of Dietary Supplement:: Ensure Compact Diet Comments: ensure compact BID w/ breakfast and dinner Routine Orders/Code Status Code Status: DNRCC-A (no intubation) Therapies Weight Bearing: Non weight bearing Extremity Affected:: Right Upper Physical Therapy: Eval and Treat Occupational Therapy: Eval and Treat Problem/Diagnosis (1) Adult failure to thrive: Status: Acute Code(s): R62.7 - Adult failure to thrive Plan: PT OT plant to go to TCU. (2) Open fracture of right radius and ulna: Status: Acute Code(s): S52.91XB - Unspecified fracture of right forearm, initial encounter for open fracture type I or II; S52.201B - Unspecified fracture of shaft of right ulna, initial encounter for open fracture type I or II Plan: Right wrist fracture Sustained a displaced right wrist radial and ulnar fracture a few weeks ago. She was transferred to outside hospital on account of concern for open fracture. The fracture was reduced and she had a splint applied. patient however pulled off her splint at home, and so was brought in to the ED due to pain of RUE splint has been applied. PT./OT on board. splint also BRIAN wrappd. ffall precautions (3) Altered mental status: Status: Acute Code(s): R41.82 - Altered mental status, unspecified Plan: Altered mental status Patient has apparently been getting more confused at home and family is concerned that this is a progression of her dementia. Patient is agitated here and required Haldol today. She is on Seroquel and dose was increased to 25 mg twice daily. She has a sitter by here. CT of the brain showed no acute intracranial pathology. Urinalysis showed no evidence of UTI. Patient does have underlying dementia and it appears that he has gradually been more getting worse. Family unable to care for her at home. Will likely need placement. Plan Chronic conditions: * Paroxysmal afib: on metoprolol. Coumadin discontinued due to frequent falls. * Hypertension: on amlodipine, lisinopril and metoprolol * Hyperlipidemia: on statin * Chronic hyponatremia; stable. Will monitor * History of CVA: on statin. on metoprolol. coumadin dc'd due to risk of mechanical falls DVT prophylaxis: SCDs Disposition: medically stable. Awaiting on TCU acceptance and insurance approval. Allergies/Procedures Done in Hospital Allergies atorvastatin [From Lipitor] Adverse Reaction (Severe, Verified 12/15/22 16:28) Myalgias Procedures: None Type of Care/Length of Stay Estimated LOS: Convalescent Care Less Than 30 days Type of Care Needed: Skilled Rehab Potential: Fair Prognosis: Fair Additional Orders/Day of Discharge Day of Discharge: 12/19/22 Dietary and Speech Recommendations Dietitian Recommendations/Changes: Will continue liberalized regular diet as ordered. Consider MANAGER CONTACT swallow evaluation as needed given advanced age, hx of CVA and confusion/FTT. Will add ensure compact BID w/ breakfast and dinner as tolerated. Re-evaluate for possible malnutrition at follow-up. Discharge Plan Admission Admit Date/Time: 12/15/22 19:48 Attending Provider: Sylvester Zaragoza Primary Care Provider: Deon Hamm Chi Consulting Providers: Saranya Quintana; June Hong Instructions Additional Instructions / Restrictions: Follow up with Dr. Ghotra ([facility]) in 1-2 weeks. Discharge Orders/Prescriptions Prescriptions: New acetaminophen 500 mg Tablet 1,000 mg PO Q8 Qty: 0 0RF alum-mag hydroxide-simeth [Mag-Al Plus Extra Strength] 400-400-40 mg/5 mL Suspension 30 ml PO Q6H PRN PRN (Reason: Gastric Burning) Qty: 0 0RF melatonin 3 mg Tablet 3 mg PO QHS PRN PRN (Reason: Insomnia) Qty: 0 0RF menthol-zinc oxide [Calmoseptine] 0.44-20.6 % Ointment 1 applic topical 4X/DAY Qty: 0 0RF Protocol: *Topical Application Instructions APPLICATION INSTRUCTIONS: apply to affected region quetiapine 25 mg Tablet 25 mg PO BID Qty: 0 0RF sennosides-docusate sodium [Stool Softener-Stimulant Laxat] 8.6-50 mg Tablet 2 tab PO BID PRN PRN (Reason: Constipation) Qty: 0 0RF Continued multivitamin with folic acid 400 mcg tablet 1 tab PO DAILY warfarin 2 mg tablet 2 mg PO .COMPLEX Qty: 180 3RF Protocol: Dose Management Condition: Monday Dose/Route: 3 mg Instruction: 1.5 x 2 mg tablets Condition: Monday Dose/Route: 2 mg Instruction: 1 x 2 mg tablet Condition: Monday Dose/Route: 2 mg Instruction: 1 x 2 mg tablet Condition: Monday Dose/Route: 2 mg Instruction: 1 x 2 mg tablet Condition: Dose/Route: 2 mg Instruction: 1 x 2 mg tablet Condition: Monday Dose/Route: 3 mg Instruction: 1.5 x 2 mg tablets Condition: Monday Dose/Route: 3 mg Instruction: 1.5 x 2 mg tablets Protocol Text: Adjustment Start Date: Monday11/02/22 INR Value: 2.4 INR Date: 11/02/22 Recheck Date: 11/30/22 Rx Instructions: 2 mg PO every day except 3 mg on Monday; or as directed: dose changes periodically amlodipine 2.5 mg tablet 2.5 mg PO BID Qty: 180 3RF metoprolol tartrate 50 mg tablet 50 mg PO BID Qty: 180 3RF lisinopril 40 mg tablet 40 mg PO DAILY Qty: 90 3RF Patient Comments: blood pressure simvastatin 20 mg tablet 20 mg PO QHS Qty: 90 3RF Referrals / Follow Up: Deon Hamm Chi, MD [Primary Care Provider] - Within 2 Weeks (2) Open fracture of right radius and ulna Qualifiers: Encounter type: subsequent encounter (3) Altered mental status Qualifiers: Altered mental status type: delirium Qualified Code(s): R41.0 - Disorientation, unspecified
[2022-12-19] MEDS: Acetaminophen 500 MG Tablet 1000 MG PO (12:18)
[2022-12-19 13:22] LABS: International Normalized Ratio 1.2; Prothrombin Time (Protime)PT. 14.7 SECONDS (11.7-14.9)
--- NOTE | 2022-12-19 13:36 | DS.PCM_ITS ---
Providers Date of Admission: 12/15/22 Primary Care Physician: Dr. Deon Hamm MD Consultations 12/15/22 21:03 Consult: Onc/Wound/assistant front end manager Routine Comment: Reason for Consult:: RUE laceration, has also broken arm. Reason For Visit: WRIST COMPLICATED FX, FALLS Diagnosis Discharge Diagnosis (1) Adult failure to thrive: Status: Acute Code(s): R62.7 - Adult failure to thrive Plan: PT OT plant to go to TCU. (2) Open fracture of right radius and ulna: Status: Acute Code(s): S52.91XB - Unspecified fracture of right forearm, initial encounter for open fracture type I or II; S52.201B - Unspecified fracture of shaft of right ulna, initial encounter for open fracture type I or II Qualifiers: Encounter type: subsequent encounter Plan: Right wrist fracture Sustained a displaced right wrist radial and ulnar fracture a few weeks ago. She was transferred to outside hospital on account of concern for open fracture. The fracture was reduced and she had a splint applied. patient however pulled off her splint at home, and so was brought in to the ED due to pain of RUE splint has been applied. PT./OT on board. splint also BRIAN wrappd. ffall precautions (3) Altered mental status: Status: Acute Code(s): R41.82 - Altered mental status, unspecified Qualifiers: Altered mental status type: delirium Qualified Code(s): R41.0 - Disorientation, unspecified Plan: Altered mental status Patient has apparently been getting more confused at home and family is concer elmo that this is a progression of her dementia. Patient is agitated here and required Haldol today. She is on Seroquel and dose was increased to 25 mg twice daily. She has a sitter by here. CT of the brain showed no acute intracranial pathology. Urinalysis showed no evidence of UTI. Patient does have underlying dementia and it appears that he has gradually been more getting worse. Family unable to care for her at home. Will likely need placement. Plan Chronic conditions: * Paroxysmal afib: on metoprolol. Coumadin discontinued due to frequent falls. * Hypertension: on amlodipine, lisinopril and metoprolol * Hyperlipidemia: on statin * Chronic hyponatremia; stable. Will monitor * History of CVA: on statin. on metoprolol. coumadin dc'd due to risk of mechanical falls DVT prophylaxis: SCDs Disposition: medically stable. Awaiting on TCU acceptance and insurance approval. Medications at Discharge Home Medications multivitamin with folic acid 400 mcg tablet 1 tab PO DAILY 07/14/20 warfarin 2 mg tablet 2 mg PO .COMPLEX #180 tabs 04/14/22 amlodipine 2.5 mg tablet 2.5 mg PO BID #180 tabs 10/18/22 lisinopril 40 mg tablet 40 mg PO DAILY #90 tabs 10/18/22 metoprolol tartrate 50 mg tablet 50 mg PO BID #180 tabs 10/18/22 simvastatin 20 mg tablet 20 mg PO QHS #90 tabs 10/18/22 acetaminophen 500 mg tablet 1,000 mg (2 x 500 mg) PO Q8 #0 tabs 12/19/22 aluminum-mag hydroxide-simethicone 400 mg-400 mg-40 mg/5 mL oral susp (Mag-Al Plus Extra Strength) 30 ml PO Q6H PRN PRN Gastric Burning #0 mL 12/19/22 melatonin 3 mg tablet 3 mg PO QHS PRN PRN Insomnia #0 tabs 12/19/22 menthol 0.44 %-zinc oxide 20.6 % topical ointment (Calmoseptine) 1 applic topical 4X/DAY #0 grams 12/19/22 quetiapine 25 mg tablet 25 mg PO BID #0 tabs 12/19/22 sennosides 8.6 mg-docusate sodium 50 mg tablet (Stool Softener-Stimulant Laxative) 2 tab PO BID PRN PRN Constipation #0 tabs 12/19/22 Hospital Course Operations None Procedures None Weight / BMI Weight Weight: 57 kg Body Mass Index (BMI) 22.9 ABG / Lab / Microbiology Data 12/19/22 04:45 12/19/22 04:45 Laboratory: Laboratory Results - last 24 hr 12/19/22 04:45: WBC 9.1, RBC 3.84 L, Hgb 12.2, Hct 36.1 L, MCV 94.0, MCH 31.8, MCHC 33.8, RDW Std Deviation 43.8, RDW Coeff of Isis 12.7, Plt Count 221, MPV 10.3, Immature Gran % (Auto) 0.400, Neut % (Auto) 79.2 H, Lymph % (Auto) 8.9 L, [place] % (Auto) 8.9, Eos % (Auto) 2.3, Baso % (Auto) 0.3, Absolute Neuts (auto) 7.2, Absolute Lymphs (auto) 0.81 L, Nucleated RBC % 0, Sodium 139, Potassium 3.9, Chloride 106, Carbon Dioxide 24.0, Anion Gap 9, BUN 20 H, Creatinine 0.71, Estim Creat Clear Calc 30.76, Est GFR (MDRD) Af Amer 100, Est GFR (MDRD) Non-Af 82, BUN/Creatinine Ratio 28.1 H, Glucose 116 H, Calcium 9.2 12/19/22 12:55: PT 14.7, INR 1.2 Meaningful Use Info Meaningful Use Diagnoses (Choose all that apply): None applicable Discharge Plan Admission Admit Date/Time: 12/15/22 19:48 Primary Reason for Your Visit: debility Attending Provider: Sylvester Zaragoza Primary Care Provider: Deon Hamm Chi Consulting Providers: Saranya Quintana; June Hong Instructions Additional Instructions / Restrictions: Follow up with Dr. Ghotra ([facility]) in 1-2 weeks. Discharge Orders/Prescriptions Prescriptions: New acetaminophen 500 mg Tablet 1,000 mg PO Q8 Qty: 0 0RF alum-mag hydroxide-simeth [Mag-Al Plus Extra Strength] 400-400-40 mg/5 mL Suspension 30 ml PO Q6H PRN PRN (Reason: Gastric Burning) Qty: 0 0RF melatonin 3 mg Tablet 3 mg PO QHS PRN PRN (Reason: Insomnia) Qty: 0 0RF menthol-zinc oxide [Calmoseptine] 0.44-20.6 % Ointment 1 applic topical 4X/DAY Qty: 0 0RF Protocol: *Topical Application Instructions APPLICATION INSTRUCTIONS: apply to affected region quetiapine 25 mg Tablet 25 mg PO BID Qty: 0 0RF sennosides-docusate sodium [Stool Softener-Stimulant Laxat] 8.6-50 mg Tablet 2 tab PO BID PRN PRN (Reason: Constipation) Qty: 0 0RF Continued multivitamin with folic acid 400 mcg tablet 1 tab PO DAILY warfarin 2 mg tablet 2 mg PO .COMPLEX Qty: 180 3RF Protocol: Dose Management Condition: Monday Dose/Route: 3 mg Instruction: 1.5 x 2 mg tablets Condition: Monday Dose/Route: 2 mg Instruction: 1 x 2 mg tablet Condition: Monday Dose/Route: 2 mg Instruction: 1 x 2 mg tablet Condition: Monday Dose/Route: 2 mg Instruction: 1 x 2 mg tablet Condition: Dose/Route: 2 mg Instruction: 1 x 2 mg tablet Condition: Monday Dose/Route: 3 mg Instruction: 1.5 x 2 mg tablets Condition: Monday Dose/Route: 3 mg Instruction: 1.5 x 2 mg tablets Protocol Text: Adjustment Start Date: Monday11/02/22 INR Value: 2.4 INR Date: 11/02/22 Recheck Date: 11/30/22 Rx Instructions: 2 mg PO every day except 3 mg on Monday; or as directed: dose changes periodically amlodipine 2.5 mg tablet 2.5 mg PO BID Qty: 180 3RF metoprolol tartrate 50 mg tablet 50 mg PO BID Qty: 180 3RF lisinopril 40 mg tablet 40 mg PO DAILY Qty: 90 3RF Patient Comments: blood pressure simvastatin 20 mg tablet 20 mg PO QHS Qty: 90 3RF Referrals / Follow Up: Deon Hamm Chi, MD [Primary Care Provider] - Within 2 Weeks Disposition Disposition (needs filled in before D/C Order can be placed): [facility] Facility Charges/Coding Visit Charges Inpatient E&M: 84684 Disch Hosp
--- NOTE | 2022-12-19 14:48 | CASEMGMT ---
Discharge Planning Patient has been accepted by [facility]. Physician, SW, and patients daughter updated. Rea Sabillon, Discharge Planning Asst.
[2022-12-19 15:00] VITALS: BP 89/43; PULSE 63; RESP 16; TEMP 35.8; O2SAT 98
[2022-12-19 15:28] VITALS: BP 106/49; PULSE 54; RESP 14; TEMP 36.6; O2SAT 96
--- NOTE | 2022-12-19 16:18 | CASEMGMT ---
Discharge Planning Discharge orders, signed med list, covid results, and transport time sent to [facility] via [facility]. [facility] will transport patient by wheelchair at 6p. Nursing, SW, and patients daughter updated. Rea Sabillon, Discharge Planning Asst.
[2022-12-19] MEDS: oxyCODONE 5 MG Tablet 2.5 MG PO (17:17)
--- NOTE | 2022-12-19 18:59 | NURSING ---
report called to LAMAR Davidson RN
--- NOTE | 2022-12-20 07:49 | NURSING ---
Nina received a call from Geno FLEMING at [facility] regarding clarification of coumadin. Summary states to dc coumadin, bu it was ordered on signed med list. This RN spoke to Dr Zaragoza regarding coumadin, per Dr Zaragoza pt can take coumadin. Call placed to Geno FLEMING , voicemail left asking for call back.
== END 2022-12-19 18:53 | disposition skilled nursing facility (03) | DRG 641 ==
LOC: ED 17:42 → PCU 20:00
PROVIDERS: Student in an Organized Health Care Education/Training Program; Admitting Provider Family Medicine; Emergency Provider Emergency Medicine; PCP Family Medicine Geriatric Medicine
DX: R62.7 Adult failure to thrive (principal); F03.918 Unspecified dementia, unspecified severity, with other behavioral disturbance; I48.0 Paroxysmal 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; I10 Essential (primary) hypertension; E78.5 Hyperlipidemia, unspecified; Z23 Encounter for immunization; Z79.01 Long term (current) use of anticoagulants; S62.91XD Unspecified fracture of right hand, subsequent encounter for fracture with routine healing; S52.101 Unspecified fracture of upper end of right radius; S52.209D Unspecified fracture of shaft of unspecified ulna, subsequent encounter for closed fracture with routine healing; S52.201D Unspecified fracture of shaft of right ulna, subsequent encounter for closed fracture with routine healing; Z66 Do not resuscitate; S52.91XD Unspecified fracture of right forearm, subsequent encounter for closed fracture with routine healing; Z86.73 Personal history of transient ischemic attack (TIA), and cerebral infarction without residual deficits
CPT/HCPCS: 29125; 36415; 70450; 71045; 72125; 72170; 73080; 73110; 73590; 80048; 80053; 81001; 83735; 84100; 85025; 85610; 85730; 87811; 90471; 90715; 96365; 96366; 96375; 97110; 97116; 97163; 97166; 97530; 97535; 97802; 99152; 99285; J7030; A4216; J2405